=== PATIENT | female | born 1965 | race Caucasian/White ===

== ENCOUNTER → 2017-10-31 | Outpatient (CLI) | payer OTHER ==
[~2017-10-31] MED LIST: PROHANCE 279.3MG/ML 15ML VIAL (A9576) As Ordered ONE
--- NOTE | 2017-11-19 16:46 | REP ---
MRI pelvis without and with IV contrast: History: Right lower quadrant and right pelvic pain. The patient is status post vaginal hysterectomy. Status post urethral sling and colporrhaphy surgery February of 2017 complicated by multiloculated abscess. Left salpingo-oophorectomy. Multiloculated right adnexal cystic lesion. Comparison CT studies of the chest, abdomen and pelvis are from April and March of 2017, retrieved from an outside study. Most recent sonography October 09, 2017 also retrieved from an outside facility. Gadolinium enhancement dose: 12 mL of intravenous ProHance. MR technique: Sagittal, axial and coronal T1 and T2-weighted scans were obtained with and without fat saturation. MRI findings: Cortical and medullary bone signal intensity are normal in the proximal femurs and in the bony pelvic ring. Sacrum is intact. Presacral soft tissues are unremarkable. The patient is status post hysterectomy. No vaginal mass or abnormal fluid collection is seen. Vaginal townsend are unremarkable. Urinary bladder is largely empty at the time of scanning, but otherwise unremarkable. There is a complex cystic process enlarging the right ovary. The largest cystic components in this process are felt to contain proteinaceous material as there is a fluid-fluid level in one component and T1 hyperintense material is seen in this component. The other components have different signal intensity characteristics as well consistent with proteinaceous cyst fluid. Overall, the lesion corresponds well with the ultrasound findings. Overall dimensions are 3.6 cm medial to lateral by 3.1 cm anterior to posterior by 5.4 cm cranial to caudal. No left adnexal abnormality is observed. No free fluid is noted. There is no evidence of residual or recurrent abscess. Small and large bowel loops are unremarkable on today's MR study. Post gadolinium enhanced images show peripheral enhancement in the cystic process in the right adnexa and expected enhancement in the peroneal structures. No abdominal wall defect is seen. There are postsurgical changes in the subcutaneous fascial interface in the suprapubic region, status post Pfannenstiel type incision. No abdominal wall mass lesion is observed. Impression: Complex cystic enlargement right ovary, right adnexa as seen on recent ultrasound. Differential possibilities include endometrioma, hemorrhagic ovarian cystic lesion, and other neoplasm. Abscess is considered less likely given the appearance. Signed by Devonte Lenz MD 11/19/2017 04:54 P
--- NOTE | 2017-11-19 16:46 | REP ---
MRI abdomen without and with IV contrast: History: 52-year-old female with right lower quadrant and right pelvic pain. The patient status post surgical history including vaginal hysterectomy, anterior colporrhaphy, urethral sling, and left salpingo-oophorectomy, multiloculated abscess complications. Curvilinear calcification in the left abdomen on recent x-ray. Comparison radiographs are from April 22, 2017 and April 18, 2017. Comparison CT study April 25, 2017. Technique: Axial and coronal T1 and T2-weighted scans were obtained with and without fat saturation. The gadolinium enhancement dose is 12 mL of intravenous ProHance. MR abdomen findings: There is a tiny central right hepatic cyst, 6 mm in diameter. No other focal hepatic lesion is seen. No splenic lesion is observed. No adrenal masses seen on either side. No filling defect is noted in the gallbladder on T2-weighted scans. Pancreas is unremarkable on pre- and postcontrast imaging. The kidneys enhance symmetrically and are morphologically intact. No renal mass or cyst is observed. No retroperitoneal mass or adenopathy is seen. Normal caliber aorta. No abdominal wall defect is seen. Impression: Unremarkable upper abdominal MRI study pre and postcontrast imaging. Signed by Devonte Lenz MD 11/19/2017 04:54 P
== END ==
LOC: M RAD 10:21
PROVIDERS: ATTEND Family Medicine
DX: N83.291 Other ovarian cyst, right side (principal); K76.89 Other specified diseases of liver; Z90.710 Acquired absence of both cervix and uterus
CPT/HCPCS: 72197; 74183; A9576

== ENCOUNTER → 2018-01-15 | Outpatient (CLI) | payer OTHER | LOC: M PAIN 14:00 | DX: M79.1 Myalgia (principal); M43.07 Spondylolysis, lumbosacral region; Q67.5 Congenital deformity of spine; Z79.891 Long term (current) use of opiate analgesic; Z79.899 Other long term (current) drug therapy; Z88.0 Allergy status to penicillin; Z88.2 Allergy status to sulfonamides | CPT/HCPCS: G0463 ==

== ENCOUNTER 2018-01-21 10:55 | Day surgery (SDC) | payer OTHER ==
[~2018-01-21 10:55] MED LIST changes: +LIDOCAINE 2% INJ 100 MG/5 ML SDV (FOR ANES.) As Ordered; +MIDAZOLAM INJ 2 MG/2 ML VIAL (J2250) As Ordered; -PROHANCE 279.3MG/ML 15ML VIAL (A9576) As Ordered ONE; +PROPOFOL 200 MG/20 ML VIAL As Ordered; +ROCURONIUM BROMIDE 50 MG/5 ML VIAL As Ordered; +fentaNYL 100 MCG/2 ML INJECTION (J3010) As Ordered
[2018-01-21] MEDS ORDERED: ONDANSETRON 4MG/2ML VIAL (J2405) As Ordered (11:05)
[2018-01-21] MEDS ORDERED: LR 1,000 ML IV (11:15)
[2018-01-21] MEDS ORDERED: LIDOCAINE 1% SDV 5 ML VIAL SQ (11:15)
[2018-01-21] MEDS ORDERED: METOCLOPRAMIDE INJ 10MG/2ML VIAL (J2765) As Ordered (12:04)
[2018-01-21] MEDS ORDERED: SCOPOLAMINE 1MG TRANSDERMAL PATCH As Ordered (12:05)
[2018-01-21] MEDS ORDERED: dexameTHASONE 4 MG/ML 1ML VIAL (J1100) As Ordered (12:05)
[2018-01-21] MEDS ORDERED: SCOPOLAMINE 1MG TRANSDERMAL PATCH TOP (12:15)
[2018-01-21] MEDS ORDERED: KETAMINE HCL 200 MG/20 ML VIAL As Ordered (12:39)
[2018-01-21] MEDS ORDERED: PHENYLephrine HCL 500 MCG/5 ML (100MCG/ML) SYRINGE (J2370) As Ordered (12:50)
[2018-01-21] MEDS ORDERED: ePHEDrine INJ 50 MG/ML VIAL As Ordered (12:51)
[2018-01-21] MEDS: CLINDAMYCIN 600 MG/50 ML PREMIX BAG As Ordered (13:03)
[2018-01-21] MEDS: BUPIVACAINE HCL 0.5% 10 ML VIAL As Ordered (13:06)
== END 2018-01-21 15:33 | disposition home or self-care (01) ==
LOC: M SDC 10:55
DX: K59.00 Constipation, unspecified (principal); M12.9 Arthropathy, unspecified; M41.9 Scoliosis, unspecified; F41.9 Anxiety disorder, unspecified; J45.909 Unspecified asthma, uncomplicated; R32 Unspecified urinary incontinence; Z88.0 Allergy status to penicillin; Z88.2 Allergy status to sulfonamides; Z88.7 Allergy status to serum and vaccine; Z79.899 Other long term (current) drug therapy; Z90.710 Acquired absence of both cervix and uterus
CPT/HCPCS: 20240

== ENCOUNTER → 2018-02-26 | Outpatient (CLI) | payer OTHER | LOC: M PAIN 11:15 | DX: G89.29 Other chronic pain (principal); M79.1 Myalgia; M43.07 Spondylolysis, lumbosacral region; Q67.5 Congenital deformity of spine; Z88.0 Allergy status to penicillin; Z88.2 Allergy status to sulfonamides; Z79.899 Other long term (current) drug therapy | CPT/HCPCS: G0463 ==

== ENCOUNTER → 2018-04-24 | Outpatient (CLI) | payer OTHER | LOC: M PAIN 11:45 | DX: M79.1 Myalgia (principal); M43.07 Spondylolysis, lumbosacral region; G89.29 Other chronic pain; Q67.5 Congenital deformity of spine; Z79.899 Other long term (current) drug therapy; Z88.0 Allergy status to penicillin; Z88.2 Allergy status to sulfonamides; Z88.7 Allergy status to serum and vaccine | CPT/HCPCS: G0463 ==

== ENCOUNTER → 2018-04-29 | Outpatient (CLI) | payer OTHER ==
[~2018-04-29] MED LIST changes: +BUPIVACAINE HCL 0.25% 30 ML VIAL As Ordered; +ISOVUE-M 300 61% 15ML VIAL (Q9967) As Ordered; +LIDOCAINE 1% SDV INJ 30 ML VIAL As Ordered; -LIDOCAINE 2% INJ 100 MG/5 ML SDV (FOR ANES.) As Ordered; -MIDAZOLAM INJ 2 MG/2 ML VIAL (J2250) As Ordered; -PROPOFOL 200 MG/20 ML VIAL As Ordered; -ROCURONIUM BROMIDE 50 MG/5 ML VIAL As Ordered; +TRIAMCINOLONE ACETONIDE SUSP 40 MG/ML VIAL (J3301) As Ordered; +diazePAM 5 MG TAB As Ordered; -fentaNYL 100 MCG/2 ML INJECTION (J3010) As Ordered; +oxyCODONE 5MG TAB As Ordered
== END ==
LOC: M PAIN 13:45
DX: G89.29 Other chronic pain (principal); M47.816 Spondylosis without myelopathy or radiculopathy, lumbar region; Z79.899 Other long term (current) drug therapy; Z88.0 Allergy status to penicillin; Z88.2 Allergy status to sulfonamides; Z88.7 Allergy status to serum and vaccine
CPT/HCPCS: J3301

== ENCOUNTER → 2018-05-15 | Outpatient (CLI) | payer OTHER | LOC: M PAIN 11:45 | DX: M79.1 Myalgia (principal); M43.07 Spondylolysis, lumbosacral region; Q67.5 Congenital deformity of spine; Z79.899 Other long term (current) drug therapy; Z88.0 Allergy status to penicillin; Z88.5 Allergy status to narcotic agent; Z88.7 Allergy status to serum and vaccine | CPT/HCPCS: G0463 ==

== ENCOUNTER 2018-07-26 06:40 | Emergency (ER) | payer OTHER ==
[2018-07-26 07:17] LABS: BASO % 0.6 % (0.0-1.0); EOS # 0.1 10^3/uL (0.0-0.50); EOS % 2.5 % (0.0-3.0); HEMATOCRIT 38.6 % (36.0-47.0); HEMOGLOBIN 13.6 g/dl (12.0-15.5); IMMATURE GRANULOCYTE % 0.2 % (0-3.0); LYMPH # 1.6 10^3/uL (1.5-4.5); LYMPH % 30.4 % (24.0-44.0); MEAN CORPUSCULAR HEMOGLOBIN 31.1 pg (27.0-33.0); MEAN CORPUSCULAR HGB CONC 35.2 g/dl (32.0-36.5); MEAN CORPUSCULAR VOLUME 88.1 fl (80.0-96.0); MONO # 0.6 10^3/uL (0.0-0.8); MONO % 10.9 % (0.0-5.0); NEUTROPHILS # 2.9 10^3/uL (1.8-7.7); NEUTROPHILS % 55.4 % (36.0-66.0); PLATELET COUNT, AUTOMATED 199 10^3/uL (150-450); RED BLOOD COUNT 4.38 10^6/uL (4.00-5.40); RED CELL DISTRIBUTION WIDTH 11.7 % (11.5-14.5); WHITE BLOOD COUNT 5.2 10^3/uL (4.0-10.0)
[2018-07-26 07:40] LABS: ANION GAP 15 MEQ/L (8-16); BLOOD UREA NITROGEN 17 MG/DL (7-18); CARBON DIOXIDE LEVEL 21 MEQ/L (21-32); CHLORIDE LEVEL 105 MEQ/L (98-107); CK-MB VALUE MASS 2.5 NG/ML (<3.6); CPK CREATINE PHOSPHOKINASE 241 U/L (26-192); CREATININE FOR GFR 1.21 MG/DL (0.55-1.30); GLOMERULAR FILTRATION RATE 49.9 (>51); GLUCOSE, FASTING 154 MG/DL (70-100); MB/CK RELATIVE INDEX 1.03 (< OR =4); POTASSIUM SERUM 3.7 MEQ/L (3.5-5.1); SODIUM LEVEL 141 MEQ/L (136-145); TROPONIN I < 0.02 NG/ML (< 0.10)
[2018-07-26] MEDS: CLINDAMYCIN 600 MG in APPROPRIATE DILUENT 1 EA IV (09:02)
[2018-07-27 11:52] LABS: BEDSIDE GLUCOSE 106 MG/DL (70-105)
== END 2018-07-26 11:13 | disposition home or self-care (01) ==
LOC: M ED 06:40
DX: R55 Syncope and collapse (principal)
CPT/HCPCS: 93005

== ENCOUNTER → 2018-07-31 | Outpatient (CLI) | payer OTHER | LOC: M RAD 08:05 | DX: Z12.31 Encounter for screening mammogram for malignant neoplasm of breast (principal) | CPT/HCPCS: 77067 ==

== ENCOUNTER → 2018-08-27 | Outpatient (CLI) | payer OTHER ==
[~2018-08-27] MED LIST changes: +BUPIVACAINE HCL 0.25% 10 ML VIAL As Ordered; -ISOVUE-M 300 61% 15ML VIAL (Q9967) As Ordered; -LIDOCAINE 1% SDV INJ 30 ML VIAL As Ordered
== END ==
LOC: M PAIN 10:00
DX: M79.10 Myalgia, unspecified site (principal); Z79.899 Other long term (current) drug therapy; Z88.0 Allergy status to penicillin; Z88.2 Allergy status to sulfonamides; Z88.7 Allergy status to serum and vaccine
CPT/HCPCS: J3301

== ENCOUNTER → 2018-09-15 | Outpatient (CLI) | payer OTHER | LOC: M PAIN 10:30 | DX: M54.2 Cervicalgia (principal); M79.18 Myalgia, other site; Q67.5 Congenital deformity of spine; Z79.899 Other long term (current) drug therapy; Z88.0 Allergy status to penicillin; Z88.2 Allergy status to sulfonamides; Z88.7 Allergy status to serum and vaccine | CPT/HCPCS: G0463 ==

== ENCOUNTER 2018-10-27 09:45 | Day surgery (SDC) | payer OTHER ==
[~2018-10-27 09:45] MED LIST changes: -BUPIVACAINE HCL 0.25% 10 ML VIAL As Ordered; -BUPIVACAINE HCL 0.25% 30 ML VIAL As Ordered; +PROPOFOL 200 MG/20 ML VIAL As Ordered; -TRIAMCINOLONE ACETONIDE SUSP 40 MG/ML VIAL (J3301) As Ordered; -diazePAM 5 MG TAB As Ordered; -oxyCODONE 5MG TAB As Ordered
== END 2018-10-27 12:13 | disposition home or self-care (01) ==
LOC: M OPP 12:13
DX: Z12.11 Encounter for screening for malignant neoplasm of colon (principal); K63.89 Other specified diseases of intestine; M41.9 Scoliosis, unspecified; Z88.0 Allergy status to penicillin; Z88.2 Allergy status to sulfonamides; Z79.899 Other long term (current) drug therapy
CPT/HCPCS: 45378

== ENCOUNTER → 2018-11-09 | Outpatient (CLI) | payer OTHER ==
[~2018-11-09] MED LIST changes: +ACET1TAB55 PO; +ALEV220T26 PO; +BIOTPOW20 PO; +BUPIVACAINE HCL 0.25% 10 ML VIAL As Ordered ONE; +BUPIVACAINE HCL 0.25% 30 ML VIAL As Ordered ONE; +CLIN150C14 PO; +CYMB1CAP4 PO; +FISH100049 PO; +GLUC1CAP10 PO; +MULT1TAB42 PO; +PRENTAB55 PO; +PROBCAP4 PO; -PROPOFOL 200 MG/20 ML VIAL As Ordered; +TRAM50TA2 PO; +TRIAMCINOLONE ACETONIDE SUSP 40 MG/ML VIAL (J3301) As Ordered ONE; +VENTAER INH; +VITA-182 PO; +VITATAB11 PO; +ZYRT10CA5 PO; +diazePAM 5 MG TAB As Ordered ONE; +oxyCODONE 5MG TAB As Ordered ONE
--- NOTE | 2018-11-24 23:43 | ECWPNPC ---
PATIENT NAME: MIRZA CHIN : 1965 GENDER: FEMALE VISIT DATE: 11/09/2018 DISCHARGE DATE: 11/09/18 1326 VISIT LOCKED DATE TIME: PHYSICIAN: HILTON RIOS MD RESOURCE: HILTON RIOS MD HISTORY OF PRESENT ILLNESS DEPRESSION SCREENING: PHQ-2 IN LAST TWO WEEKS HAVE YOU BEEN BOTHERED BY LITTLE INTEREST OR PLEASURE IN DOING THINGSNO FEELING DOWN, DEPRESSED, OR HOPELESSNO HISTORY OF PRESENT ILLNESS: PAIN THE PATIENT DESCRIBES THE PAIN... FALL RISK SCREENING: SCREENING :NO FALLS IN THE PAST YEAR CURRENT MEDICATIONS TAKING 1 PLUS 1 - TABLET ORALLY , NOTES: 11/08/18699 TAKING GLUCOSAMINE CHOND MSM FORMULA - TABLET ORALLY , NOTES: 11/08/18699 TAKING CETIRIZINE HCL 10 MG TABLET 1 TABLET ORALLY DAILY PRN, NOTES: 11/08/18699 TAKING SUPER B COMPLEX - TABLET ORALLY , NOTES: 11/08/18699 TAKING VITAMIN D-3 1000 UNIT CAPSULE 1 CAPSULE ORALLY ONCE A DAY, NOTES: 11/08/18699 TAKING DICLOFENAC SODIUM 1 % GEL TRANSDERMAL , NOTES: 4 DAYS AGO TAKING VENTOLIN HFA 108 (90 BASE) MCG/ACT AEROSOL SOLUTION 1-2 PUFFS NEEDED INHALATION EVERY 6 HRS, NOTES: MONTH AGO TAKING ALEVE 220 MG TABLET 1 TABLET WITH FOOD OR MILK NEEDED ORALLY EVERY 12 HRS, NOTES: 3 DAYS AGO TAKING TYLENOL 325 MG TABLET 1 TABLET NEEDED ORALLY EVERY 4 HRS, NOTES: 3 DAYS AGO NOT-TAKING FISH OIL 1000 MG CAPSULE 1 CAPSULE ORALLY ONCE A DAY NOT-TAKING SENNA 8.6 MG TABLET 2 TABLETS AT BEDTIME NEEDED ORALLY ONCE A DAY NOT-TAKING TRAMADOL HCL 50 MG TABLET 1 TABLET NEEDED ORALLY EVERY 6 HRS PRN MDD4, NOTES: NONE LATELY NOT-TAKING SAME 400 MG TABLET ORALLY NOT-TAKING VITAMIN B 12 100 MCG LOZENGE ORALLY NOT-TAKING PROBIOTIC - CAPSULE ORALLY NOT-TAKING SOMA 350 MG TABLET 1 TABLET NEEDED ORALLY FOR SPASMS AND PAIN BEFORE BEDTIME MDD1 NOT-TAKING PREDNISONE 10 MG TABLET 3 TABLETS ORALLY ONCE A DAY, NOTES: MONTH AGO NOT-TAKING TESSALON PERLES 100 MG CAPSULE 1 CAPSULE NEEDED ORALLY THREE TIMES A DAY, NOTES: MONTH AGO MEDICATION LIST REVIEWED AND RECONCILED WITH THE PATIENT PAST MEDICAL HISTORY 02/2017 HYSTERECTOMY, PROLAPSE REPAIR, URETHRAL SLING 2007 CRUMP FRACTURE L FOOT ALLERGIES PENICILLIN (FOR ALLERGIES USE ONLY): HIVES: ALLERGY SULFA (FOR ALLERGY USE ONLY): HIVES: ALLERGY INFLUENZA VIRUS VACCINE SPLIT SURGICAL HISTORY BUNIONECTOMY LEFT FOOT 12/06 TONSILLECTOMY-ADNOIDS 2000 BUINIONECTOMY RIGHT FOOT 09/2011 HAMMERTOE SX RIGHT FOOT CORRECTION LEFT FOOT SURGERY 03/2013 FUSION LEFT FOOT 03/2015 HARDWARE REMOVAL 11/2016 HYSTER, PROLAPSE REPAIR, URETHRAL SLING 02/2017 EMERGENCY SURGERY FOR ABDOMINAL INFECTION - FROM HYSTERECTOMY 03/2017 BIOPSY LEFT UPPER LIP 04/24/18 FAMILY HISTORY FATHER: 64 YRS MOTHER: 83 YRS, DIAGNOSED WITH HYPERTENSION, HEART DISEASE 5 BROTHER(S) , 4 SISTER(S) . 2 SON(S) , 1 DAUGHTER(S) - HEALTHY. FATHER - OF LUNG DISEASEBROTHER - HEART ISSUES. SOCIAL HISTORY GENERAL: TOBACCO USE ARE YOU A:NONSMOKER ALCOHOL SCREENING DID YOU HAVE A DRINK CONTAINING ALCOHOL IN THE PAST YEAR?NO POINTS0 INTERPRETATIONNEGATIVE RECREATIONAL DRUG USE DRUG USE?NO CAFFEINE CAFFEINE USE?YES HOW OFTEN AND HOW MUCH? 1-3 CUPS PER DAY PENTECOSTAL [id number] CATHOLIC LANGUAGE LANGUAGES SPOKEN:CHINESE LEARNING BARRIERS / SPECIAL NEEDS BARRIERS TO LEARNING?NO HEARING IMPAIRED?NO VISION IMPAIRED?YES :CORRECTIVE LENSES COGNITIVELY IMPAIRED?NO READINESS TO LEARN?YES LEARNING PREFERENCES?NO LEARNING CAPABILITIES PRESENT?YES EMOTIONAL BARRIERS?NO SPECIAL DEVICES?NO ROLLER ENGRAVER NEEDED?NO NEW PATIENT PAIN DIARY PATIENT DESCRIBES PAIN :ACHING, HAVE IT ALL THE TIME, SHARP, STABBING, SORE, OTHER FROM 0-10, WHAT LEVEL IS YOUR PAIN TODAY?5 PRECIPITATING FACTORS PROLONGED STANDING OR SITTING, LIFTING, NO EXERCISE MAKE IT MUCH WORSE ALLEVIATING FACTORS SWIMMING IMPACT ON FUNCTION CAN'T STAY IN ONE PLACE FOR LONG PERIODS OF TIME NAME OF PERSON DRIVING YOU HOME SELF IS THERE A CHANCE YOU COULD BE ? NO HAVE YOU BEEN SICK IN THE LAST WEEK (COLD, COUGH, FEVER, FLU, ETC) NO DO YOU TAKE ANY BLOOD THINNERS? NO DO YOU HAVE ANY RASHES OR OPEN SORES? NO ANY CHANGE IN BOWEL OR BLADDER CONTROL? NO ARE YOU ALLERGIC TO SHELLFISH OR IV DYE? NO ARE YOU DIABETIC? NO DO YOU HAVE A PACEMAKER OR DEFIBRILLATOR? NO ANY NEW PROBLEMS WITH MEDICINES OR NEW ALLERGIES NO ANY NEW PATTERNS OF PAIN OR NUMBNESS? PAIN HAS INCREASED DUE TO INABILITY TO SWIM ANY CHANGE IN YOUR MEDICAL CONDITION? NO HAVE YOU FALLEN IN THE LAST 6 MONTHS? NO DO YOU USE ANY TYPE OF TOBACCO (SMOKE, SMOKELESS, CHEW, ETC.) NO ARE YOU ABUSED, NEGLECTED, OR IN AN UNSAFE ENVIRONMENT? NO DO YOU HAVE THOUGHTS OF HURTING YOURSELF OR SOMEONE ELSE? NO DO YOU NEED ANY PRESCRIPTIONS? NO DO YOU HAVE ANY OTHER QUESTIONS OR CONCERNS? NO, PT HAS BONE BIOPSY SCHEDULED FOR FOOT, TO MAKE SURE THERE ISN'T ANY INFECTION INTENSITY SCALE REVIEWED YES PAIN CLINIC PFS, CLERGY, PUBLIC HEALTH REFERRALS PUBLIC HEALTH REFERRAL NEEDED?NO WAS THE PROVIDER NOTIFIED OF ANY PERTINENT INFO?YES HAS THE PATIENT BEEN EDUCATED REGARDING HIS/HER PLAN OF CARE?YES HAS THE PATIENT BEEN EDUCATED REGARDING PAIN, THE RISK FOR PAIN, THE IMPORTANCE OF EFFECTIVE PAIN MANAGEMENT, AND THE PAIN ASSESSMENT PROCESS?YES ADVANCE DIRECTIVE ADVANCE DIRECTIVE DISCUSSED WITH PATIENT:YES OSVALDO CHIN- REVIEWED WITH PT 07/13/18 1341 LASREVIEWED WITH PT 08/27/18 1030 LASREVIEWED WITH PT 09/15/18 1037 BVREVIEWED WITH PATIENT 11/09/18 1140 JS. HOSPITALIZATION/MAJOR DIAGNOSTIC PROCEDURE ABDOMINAL INFECTION FROM HYSTERECTOMY SURGERY - 10 DAYS IN ICU 03/2017 REVIEW OF SYSTEMS REVIEWED BY: PROVIDER: . CONSTITUTIONAL: ANY CHANGE IN YOUR MEDICAL CONDITION? NO . CHILLS NO . FEVER NO . INFECTION: DO YOU HAVE NEW INFECTIONS? NO . DO YOU HAVE HISTORY OF MRSA? NO . MUSCULOSKELETAL: ANY NEW PATTERNS OF PAIN OR NUMBNESS? NO . GASTROENTEROLOGY: ANY NEW CHANGE IN BOWEL CONTROL? NO . GENITOURINARY: ANY NEW CHANGE IN BLADDER CONTROL? NO . IS THERE A CHANCE YOU COULD BE ? NO . HEMATOLOGY/LYMPH: DO YOU TAKE ANY BLOOD THINNERS? (FOR EXAMPLE- COUMADIN, PLAVIX, AGGRENOX, PLATEL, PRADAXA, OR XARELTO) NO . WHEN WAS YOUR LAST DOSE? DATE: TIME: . NEUROLOGY: HAVE YOU FALLEN IN THE PAST 6 MONTHS? NO . ANY NEW EXTREMITY NUMBNESS OR WEAKNESS? NO . CARDIOLOGY: DO YOU HAVE A PACEMAKER OR DEFIBRILLATOR? NO . RESPIRATORY: HAVE YOU BEEN SICK IN THE PAST WEEK? NO . FEVER NO . FLU LIKE SYMPTOMS? NO . COUGH NO . INTEGUMENTARY: DO YOU HAVE ANY RASHES OR OPEN SORES? NO . ALLERGIC/IMMUNO: ARE YOU ALLERGIC TO SHELLFISH OR IV DYE? NO . ANY NEW ALLERGIES? NO . PSYCHIATRIC: DO YOU HAVE THOUGHTS OF HURTING YOURSELF OR SOMEONE ELSE? NO . ARE YOU ABUSED, NEGLECTED, OR IN AN UNSAFE ENVIRONMENT? NO . ENDOCRINOLOGY: ARE YOU DIABETIC? NO . OTHER: DO YOU NEED ANY PRESCRIPTIONS? NO . IF YES, PLEASE LIST: ____ . ANY NEW PROBLEMS WITH YOUR MEDICATIONS? NO . WHEN DID YOU LAST EAT? ____11/08/18 2100 . WHEN DID YOU LAST DRINK? ____11/09/18 0830 . WHAT DID YOU LAST DRINK? ____WATER . NAME OF PERSON DRIVING YOU HOME? ____OSVALDO CHIN () . DO YOU HAVE ANY OTHER QUESTIONS OR CONCERNS NO . VITAL SIGNS WT 152.2 LBS, HT 62", BMI 27.83 INDEX, BP 104/63 MM HG, HR 59 /MIN, RR 16 /MIN, TEMP 96.7 F, OXYGEN SAT % 100%, SAFE IN ENV? (Y/N) YES, NA INITIALS AK 11:09, REVIEWED BY: JACQUELINE. ASSESSMENTS MYALGIA, OTHER SITE - M79.18 (PRIMARY) PROCEDURES PN TRIGGER POINT INJECTION WITH STEROIDS PRE PROCEDURE DIAGNOSIS 1. MYALGIA 2. PAIN AT RIGHT THORACIC AREA POST PROCEDURE DIAGNOSIS 1. MYALGIA 2. PAIN AT RIGHT THORACIC AREA PROCEDURE TRIGGER POINT INJECTION AT RIGHT THORACIC AREA SURGEON DR. HILTON RIOS SONOGRAPHY TECHNICIAN NONE ANESTHESIA LOCAL PRE PROCEDURE NOTE THE PATIENT HAS A HISTORY OF CHRONIC PAIN AT THE RIGHT THORACIC AREA. I EVALUATE THE PATIENT AND REVIEWED THE CHART. THERE IS EVIDENCE OF BANDS OF TISSUE WITH RESTRICTION OF MOVEMENT AND PRESENCE OF TRIGGER POINT AT THE AFFECTED AREA. I WENT OVER THE RISKS, ALTERNATIVES, AND BENEFITS ASSOCIATED WITH THIS PROCEDURE. THE PATIENT WOULD LIKE TO PROCEED AND GIVE CONSENT TO PERFORMED THE PROCEDURE. THE PATIENT DENIES UNEXPLAINABLE WEIGHT LOSS, FEVER, CHILLS, OR NEW CHANGES IN URINARY OR BOWEL CONTROL DESCRIPTION OF PROCEDURE THE PATIENT WAS BROUGHT TO THE PROCEDURE ROOM AND PLACED IN THE SITTING POSITION. THE AREA WAS CLEANED WITH ALCOHOL. THE PROCEDURE WAS DONE USING ASEPTIC STERILE TECHNIQUE. I CHECKED LATERALITY AND THE LEVEL WHERE THE PROCEDURE WAS GOING TO BE PERFORMED WITH THE PATIENT AND THE SUPPORTING STAFF AT THE MOMENT OF THE TIME OUT IN THE PROCEDURE ROOM. USING A 25-GAUGE NEEDLE, TRIGGER POINTS WERE INJECTED AT THE RIGHT THORACIC AREA WITH A TOTAL OF 40 ML OF BUPIVACAINE 0.25% AND KENALOG 40 MG. THERE WAS NO EVIDENCE OF BLOOD, PARESTHESIA OR CEREBROSPINAL FLUID DURING THE PROCEDURE. THE PATIENT WAS SENT TO THE RECOVERY ROOM. THE PATIENT WAS MOVING THE EXTREMITIES AND DOING WELL. THERE WAS NO COMPLICATION DURING THE PROCEDURE POST PROCEDURE NOTE THE PATIENT WILL BE SEEN IN A FOLLOW UP IN THE NEXT FEW WEEKS. INSTRUCTIONS WERE GIVEN, QUESTIONS WERE ANSWERED, AND THE PATIENT EXPRESSED UNDERSTANDING AND AGREES WITH THE PLAN. I, LAKSHMI SALEH, DOCUMENTED THE ABOVE INFORMATION ACTING A SCRIBE FOR DR. RIOS. I HAVE REVIEWED THE ABOVE DOCUMENT, WRITTEN BY LAKSHMI PUGAIBEris AND I VERIFY THAT IT IS ACCURATE. PROCEDURE CODES 67515 INJ TRIGGER POINT / MUSC DISPOSITION & COMMUNICATION FOLLOW UP 3 WEEKS ELECTRONICALLY SIGNED BY HILTON RIOS MD, MD ON 11/24/2018 AT 07:22 PM EST DISCLAIMER : THIS IS A VISIT SUMMARY EXTRACTED FROM THE [employer] CHART. IT IS NOT A COPY OF THE [employer] PROGRESS NOTE. MTDAnders
== END ==
LOC: M PAIN 11:15
PROVIDERS: ATTEND Anesthesiology
DX: M79.18 Myalgia, other site (principal); Z79.899 Other long term (current) drug therapy; Z90.710 Acquired absence of both cervix and uterus; Z88.0 Allergy status to penicillin; Z88.2 Allergy status to sulfonamides; Z88.7 Allergy status to serum and vaccine
CPT/HCPCS: 20552; J3301

== ENCOUNTER → 2018-12-22 | Outpatient (CLI) | payer OTHER ==
[~2018-12-22] MED LIST changes: -BUPIVACAINE HCL 0.25% 10 ML VIAL As Ordered ONE; -BUPIVACAINE HCL 0.25% 30 ML VIAL As Ordered ONE; -TRIAMCINOLONE ACETONIDE SUSP 40 MG/ML VIAL (J3301) As Ordered ONE; -diazePAM 5 MG TAB As Ordered ONE; -oxyCODONE 5MG TAB As Ordered ONE
--- NOTE | 2019-01-04 00:33 | ECWPNPC ---
PATIENT NAME: MIRZA CHIN : 1965 GENDER: FEMALE VISIT DATE: 12/22/2018 DISCHARGE DATE: 12/22/18 1156 VISIT LOCKED DATE TIME: PHYSICIAN: CRYSTAL TAY RESOURCE: CRYSTAL TAY REASON FOR APPOINTMENT 1. POST PROC HISTORY OF PRESENT ILLNESS HISTORY OF PRESENT ILLNESS: HERE FOR POST PROCEDURE F/U.HAD TPI RIGHT THORACIC AREA 11/09/18.REPORTING IMPROVEMENT IN PAIN THAT CONTINUES TODAY.CHIEF AREA OF PAIN IS RIGHT LOW BACK.RATING PAIN VAS 5/10. PAIN THE PATIENT DESCRIBES THE PAIN... FALL RISK SCREENING: SCREENING :NO FALLS IN THE PAST YEAR CURRENT MEDICATIONS TAKING 1 PLUS 1 - TABLET ORALLY TAKING CETIRIZINE HCL 10 MG TABLET 1 TABLET ORALLY DAILY PRN TAKING SUPER B COMPLEX - TABLET ORALLY TAKING VITAMIN D-3 1000 UNIT CAPSULE 1 CAPSULE ORALLY ONCE A DAY TAKING DICLOFENAC SODIUM 1 % GEL TRANSDERMAL TAKING TYLENOL 325 MG TABLET 1 TABLET NEEDED ORALLY EVERY 4 HRS TAKING CELEBREX 200 MG CAPSULE 1 CAPSULE WITH FOOD ORALLY ONCE A DAY NOT-TAKING FISH OIL 1000 MG CAPSULE 1 CAPSULE ORALLY ONCE A DAY NOT-TAKING SENNA 8.6 MG TABLET 2 TABLETS AT BEDTIME NEEDED ORALLY ONCE A DAY NOT-TAKING TRAMADOL HCL 50 MG TABLET 1 TABLET NEEDED ORALLY EVERY 6 HRS PRN MDD4, NOTES: NONE LATELY NOT-TAKING SAME 400 MG TABLET ORALLY NOT-TAKING VITAMIN B 12 100 MCG LOZENGE ORALLY NOT-TAKING PROBIOTIC - CAPSULE ORALLY NOT-TAKING SOMA 350 MG TABLET 1 TABLET NEEDED ORALLY FOR SPASMS AND PAIN BEFORE BEDTIME MDD1 NOT-TAKING PREDNISONE 10 MG TABLET 3 TABLETS ORALLY ONCE A DAY, NOTES: MONTH AGO NOT-TAKING TESSALON PERLES 100 MG CAPSULE 1 CAPSULE NEEDED ORALLY THREE TIMES A DAY, NOTES: MONTH AGO NOT-TAKING GLUCOSAMINE CHOND MSM FORMULA - TABLET ORALLY NOT-TAKING VENTOLIN HFA 108 (90 BASE) MCG/ACT AEROSOL SOLUTION 1-2 PUFFS NEEDED INHALATION EVERY 6 HRS NOT-TAKING ALEVE 220 MG TABLET 1 TABLET WITH FOOD OR MILK NEEDED ORALLY EVERY 12 HRS MEDICATION LIST REVIEWED AND RECONCILED WITH THE PATIENT PAST MEDICAL HISTORY 02/2017 HYSTERECTOMY, PROLAPSE REPAIR, URETHRAL SLING 2007 CRUMP FRACTURE L FOOT ALLERGIES PENICILLIN (FOR ALLERGIES USE ONLY): HIVES: ALLERGY SULFA (FOR ALLERGY USE ONLY): HIVES: ALLERGY INFLUENZA VIRUS VACCINE SPLIT SURGICAL HISTORY BUNIONECTOMY LEFT FOOT 12/06 TONSILLECTOMY-ADNOIDS 2000 BUINIONECTOMY RIGHT FOOT 09/2011 HAMMERTOE SX RIGHT FOOT CORRECTION LEFT FOOT SURGERY 03/2013 FUSION LEFT FOOT 03/2015 HARDWARE REMOVAL 11/2016 HYSTER, PROLAPSE REPAIR, URETHRAL SLING 02/2017 EMERGENCY SURGERY FOR ABDOMINAL INFECTION - FROM HYSTERECTOMY 03/2017 BIOPSY LEFT UPPER LIP 04/24/18 FAMILY HISTORY FATHER: 64 YRS MOTHER: 83 YRS, DIAGNOSED WITH HYPERTENSION, HEART DISEASE 5 BROTHER(S) , 4 SISTER(S) . 2 SON(S) , 1 DAUGHTER(S) - HEALTHY. FATHER - OF LUNG DISEASEBROTHER - HEART ISSUES. SOCIAL HISTORY GENERAL: TOBACCO USE ARE YOU A:NONSMOKER ALCOHOL SCREENING DID YOU HAVE A DRINK CONTAINING ALCOHOL IN THE PAST YEAR?NO POINTS0 INTERPRETATIONNEGATIVE RECREATIONAL DRUG USE DRUG USE?NO CAFFEINE CAFFEINE USE?YES HOW OFTEN AND HOW MUCH? 1-3 CUPS PER DAY [employer] [id number] LATTER DAY LANGUAGE LANGUAGES SPOKEN:[place]LANDER LEARNING BARRIERS / SPECIAL NEEDS BARRIERS TO LEARNING?NO HEARING IMPAIRED?NO VISION IMPAIRED?YES :CORRECTIVE LENSES COGNITIVELY IMPAIRED?NO READINESS TO LEARN?YES LEARNING PREFERENCES?NO LEARNING CAPABILITIES PRESENT?YES EMOTIONAL BARRIERS?NO SPECIAL DEVICES?NO TEACHER ASSISTANT NEEDED?NO NEW PATIENT PAIN DIARY PATIENT DESCRIBES PAIN :ACHING, HAVE IT ALL THE TIME, SHARP, STABBING, SORE, OTHER FROM 0-10, WHAT LEVEL IS YOUR PAIN TODAY?5 PRECIPITATING FACTORS PROLONGED STANDING OR SITTING, LIFTING, NO EXERCISE MAKE IT MUCH WORSE ALLEVIATING FACTORS SWIMMING IMPACT ON FUNCTION CAN'T STAY IN ONE PLACE FOR LONG PERIODS OF TIME NAME OF PERSON DRIVING YOU HOME SELF IS THERE A CHANCE YOU COULD BE ? NO HAVE YOU BEEN SICK IN THE LAST WEEK (COLD, COUGH, FEVER, FLU, ETC) NO DO YOU TAKE ANY BLOOD THINNERS? NO DO YOU HAVE ANY RASHES OR OPEN SORES? NO ANY CHANGE IN BOWEL OR BLADDER CONTROL? NO ARE YOU ALLERGIC TO SHELLFISH OR IV DYE? NO ARE YOU DIABETIC? NO DO YOU HAVE A PACEMAKER OR DEFIBRILLATOR? NO ANY NEW PROBLEMS WITH MEDICINES OR NEW ALLERGIES NO ANY NEW PATTERNS OF PAIN OR NUMBNESS? PAIN HAS INCREASED DUE TO INABILITY TO SWIM ANY CHANGE IN YOUR MEDICAL CONDITION? NO HAVE YOU FALLEN IN THE LAST 6 MONTHS? NO DO YOU USE ANY TYPE OF TOBACCO (SMOKE, SMOKELESS, CHEW, ETC.) NO ARE YOU ABUSED, NEGLECTED, OR IN AN UNSAFE ENVIRONMENT? NO DO YOU HAVE THOUGHTS OF HURTING YOURSELF OR SOMEONE ELSE? NO DO YOU NEED ANY PRESCRIPTIONS? NO DO YOU HAVE ANY OTHER QUESTIONS OR CONCERNS? NO, PT HAS BONE BIOPSY SCHEDULED FOR FOOT, TO MAKE SURE THERE ISN'T ANY INFECTION INTENSITY SCALE REVIEWED YES PAIN CLINIC PFS, CLERGY, PUBLIC HEALTH REFERRALS PUBLIC HEALTH REFERRAL NEEDED?NO WAS THE PROVIDER NOTIFIED OF ANY PERTINENT INFO?YES HAS THE PATIENT BEEN EDUCATED REGARDING HIS/HER PLAN OF CARE?YES HAS THE PATIENT BEEN EDUCATED REGARDING PAIN, THE RISK FOR PAIN, THE IMPORTANCE OF EFFECTIVE PAIN MANAGEMENT, AND THE PAIN ASSESSMENT PROCESS?YES ADVANCE DIRECTIVE ADVANCE DIRECTIVE DISCUSSED WITH PATIENT:YES OSVALDO CHIN- REVIEWED WITH PT 07/13/18 1341 LASREVIEWED WITH PT 08/27/18 1030 LASREVIEWED WITH PT 09/15/18 1037 BVREVIEWED WITH PATIENT 11/09/18 1140 JSREVIEWED WITH PATIENT 12/22/18 1121 JS. HOSPITALIZATION/MAJOR DIAGNOSTIC PROCEDURE ABDOMINAL INFECTION FROM HYSTERECTOMY SURGERY - 10 DAYS IN ICU 03/2017 REVIEW OF SYSTEMS REVIEWED BY: PROVIDER: CRYSTAL RIOS . CONSTITUTIONAL: ANY CHANGE IN YOUR MEDICAL CONDITION? NO . CHILLS NO . FEVER NO . INFECTION: DO YOU HAVE NEW INFECTIONS? NO . DO YOU HAVE HISTORY OF MRSA? NO . MUSCULOSKELETAL: ANY NEW PATTERNS OF PAIN OR NUMBNESS? NO . GASTROENTEROLOGY: ANY NEW CHANGE IN BOWEL CONTROL? NO . GENITOURINARY: ANY NEW CHANGE IN BLADDER CONTROL? NO . IS THERE A CHANCE YOU COULD BE ? NO . HEMATOLOGY/LYMPH: DO YOU TAKE ANY BLOOD THINNERS? (FOR EXAMPLE- COUMADIN, PLAVIX, AGGRENOX, PLATEL, PRADAXA, OR XARELTO) NO . WHEN WAS YOUR LAST DOSE? DATE: TIME: . NEUROLOGY: HAVE YOU FALLEN IN THE PAST 12 MONTHS? NO . ANY NEW EXTREMITY NUMBNESS OR WEAKNESS? YES, STATES NEW NUMBNESS TO BILATERAL HANDS, LEFT > RIGHT. ALSO STATES SEVERE CRAMPS IN LEFT LEG FROM LOWER LEG TO GROIN, AWAKENS PATIENT AT NIGHT . CARDIOLOGY: DO YOU HAVE A PACEMAKER OR DEFIBRILLATOR? NO . RESPIRATORY: HAVE YOU BEEN SICK IN THE PAST WEEK? NO . FEVER NO . FLU LIKE SYMPTOMS? NO . COUGH NO . INTEGUMENTARY: DO YOU HAVE ANY RASHES OR OPEN SORES? NO . ALLERGIC/IMMUNO: ARE YOU ALLERGIC TO IV DYE? NO . ANY NEW ALLERGIES? NO . PSYCHIATRIC: DO YOU HAVE THOUGHTS OF HURTING YOURSELF OR SOMEONE ELSE? NO . ARE YOU ABUSED, NEGLECTED, OR IN AN UNSAFE ENVIRONMENT? NO . ENDOCRINOLOGY: ARE YOU DIABETIC? NO . OTHER: DO YOU NEED ANY PRESCRIPTIONS? NO . IF YES, PLEASE LIST: ____ . ANY NEW PROBLEMS WITH YOUR MEDICATIONS? NO . WHEN DID YOU LAST EAT? ____ . WHEN DID YOU LAST DRINK? ____ . WHAT DID YOU LAST DRINK? ____ . NAME OF PERSON DRIVING YOU HOME? ____ . DO YOU HAVE ANY OTHER QUESTIONS OR CONCERNS NO . VITAL SIGNS WT 152.4 LBS, HT 62", BMI 27.87 INDEX, BP 107/55 MM HG, HR 69 /MIN, RR 16 /MIN, TEMP 97.7 F, OXYGEN SAT % 97%, SAFE IN ENV? (Y/N) YES, NA INITIALS IA 10:58, REVIEWED BY: JACQUELINE. EXAMINATION GENERAL EXAMINATION: GENERAL APPEARANCE:AWAKE,ALERT ,PLEAASANT . PSYCHAFFECT NORMAL . LUNGS:LUNG [place] ARE CLEAR TO AUSCULTATION BILATERALLY. GOOD MOVEMENT OF AIR . HEART:S1, S2 IN A REGULAR RATE AND RHYTHM. NO SIGNIFICANT MURMURS, RUBS OR GALLOPS NOTED . THORACIC SPINETRIGGER POINTS RIGHT THORACIC MID. ASSESSMENTS MYALGIA, OTHER SITE - M79.18 (PRIMARY) TREATMENT MYALGIA, OTHER SITE [facility] MRI SPINE, L.S. WITHOUT [id number],HEATHER L 01/01/2019 2:42:01 PM > RONALDO RILEY 12/29/2018 10:11:50 AM > APPROVED,OKAY TO BOOK MRI LUMBAR SPINE W/O CONTRAST ([id number]) AT [facility] 12/16/18-06/13/19 AUTH# [id number] NOTES: TPI RIGHT LOW BACK. PREVENTIVE MEDICINE PAIN CLINIC TEACHING: PROCEDURE TEACHING REVIEWED INFORMATION ON TRIGGER POINT INJECTION PROCEDURE WITH PATIENT. ALSO REVIEWED PRE-PROCEDURE INSTRUCTIONS. PATIENT VERBALIZED AN UNDERSTANDING. MIRZA BORDEN 12/22/2018 11:55:04 AM > . PROCEDURE CODES FA211 ESTABILISHED PATIENT [facility] FACILITY CHARGE DISPOSITION & COMMUNICATION FOLLOW UP POST (REASON: TPI RIGHT LOW BACK) ELECTRONICALLY SIGNED BY BLANCA LEE ON 01/03/2019 AT 02:56 PM EST DISCLAIMER : THIS IS A VISIT SUMMARY EXTRACTED FROM THE [employer] CHART. IT IS NOT A COPY OF THE [employer] PROGRESS NOTE. BELINDA
== END ==
LOC: M PAIN 11:00
PROVIDERS: ATTEND Nurse Practitioner Family
DX: M79.18 Myalgia, other site (principal); Z79.899 Other long term (current) drug therapy; Z88.0 Allergy status to penicillin; Z88.2 Allergy status to sulfonamides; Z88.7 Allergy status to serum and vaccine

== ENCOUNTER → 2019-01-03 | Outpatient (REF) | payer OTHER | LOC: M SFHCLERA 10:27 | PROVIDERS: ATTEND Physician Assistant | DX: J02.9 Acute pharyngitis, unspecified (principal) ==

== ENCOUNTER → 2019-01-14 | Outpatient (CLI) | payer OTHER ==
--- NOTE | 2019-01-14 16:36 | REP ---
MR LUMBAR SPINE WITHOUT CONTRAST: HISTORY: Back pain. Decreased signal intensity on T2-weighted images is present in the L2-3 through L5-S1 intervertebral discs. The L3-4 and L4-5 intervertebral discs are decreased in height. These findings are consistent with disc degeneration. There is no disc bulge or herniation at the L1-2 and L2-3 levels. The nerves exit the neural foramina without compression. A diffuse disc bulge is present at the L3-4 level. There is minimal compression of the thecal sac. There is hypertrophy of the ligamenta flava and posterior articulating facets. The L3 nerves exit the neural foramina without compression. A diffuse disc bulge is present at the L4-5 level. There is minimal compression of the thecal sac. The L4 nerves exit the neural foramina without compression. A diffuse disc bulge and small left paracentral and intraforaminal disc protrusion are present at the L5-S1 level. There is minimal compression of the thecal sac and left S1 nerve as it exits the thecal sac. There is compression of the left L5 nerve in the neural foramen. The right L5 nerve exits the neural foramen without compression. The conus medullaris is normal in appearance terminating at the level of the T12-L1 intervertebral disc. Normal signal intensity is present in the lumbar vertebral bodies. IMPRESSION: 1. Diffuse disc bulges at the L3-4 and L4-5 levels with minimal thecal sac compression. 2. Diffuse disc bulge and small left paracentral and intraforaminal disc protrusion at the L5-S1 level with minimal compression of the thecal sac and left S1 nerve as it exits the thecal sac. There is compression of the left L5 nerve in the neural foramen. Electronically Signed by Yohan So MD 01/14/2019 04:38 P
== END ==
LOC: M RAD 14:44
PROVIDERS: ATTEND Nurse Practitioner Family
DX: M79.18 Myalgia, other site (principal)

== ENCOUNTER → 2019-01-28 | Outpatient (CLI) | payer OTHER ==
[~2019-01-28] MED LIST changes: +BUPIVACAINE HCL 0.25% 10 ML VIAL As Ordered ONE; +BUPIVACAINE HCL 0.25% 30 ML VIAL As Ordered ONE; +TRIAMCINOLONE ACETONIDE SUSP 40 MG/ML VIAL (J3301) As Ordered ONE; +diazePAM 5 MG TAB As Ordered ONE; +oxyCODONE 5MG TAB As Ordered ONE
--- NOTE | 2019-02-14 23:44 | ECWPNPC ---
PATIENT NAME: MIRZA CHIN : 1965 GENDER: FEMALE VISIT DATE: 01/28/2019 DISCHARGE DATE: 01/28/19 1014 VISIT LOCKED DATE TIME: PHYSICIAN: HILTON RIOS MD RESOURCE: HILTON RIOS MD REASON FOR APPOINTMENT 1. TPI RIGHT LOW BACK HISTORY OF PRESENT ILLNESS HISTORY OF PRESENT ILLNESS: PAIN THE PATIENT DESCRIBES THE PAIN... FALL RISK SCREENING: SCREENING : NO FALLS IN THE PAST YEAR. CURRENT MEDICATIONS TAKING BENZONATATE 200 MG CAPSULE 1 CAPSULE ORALLY THREE TIMES A DAY NEEDED FOR COUGH, NOTES: 2 WEEKS AGO TAKING MOXIFLOXACIN HCL 0.5 % SOLUTION 1 GTT OU OPHTHALMIC THREE TIMES A DAY, NOTES: 3 WEEKS AGO TAKING DOXYCYCLINE HYCLATE 100 MG CAPSULE 1 CAPSULE ORALLY EVERY 12 HRS, NOTES: 01/25/19 TAKING NETI POT SINUS WASH 2300-700 MG KIT DIRECTED NASALLY BID, NOTES: NOT USED TAKING FLONASE 50 MCG/ACT SUSPENSION 1 SPRAY IN EACH NOSTRIL NASALLY TWICE A DAY, NOTES: 01/25/19 TAKING MUCINEX DM 30-600 MG TABLET EXTENDED RELEASE 12 HOUR 1 TABLET NEEDED ORALLY EVERY 12 HRS TAKING SUDAFED 12 HOUR 120 MG TABLET EXTENDED RELEASE 12 HOUR 1 TABLET NEEDED ORALLY EVERY 12 HRS TAKING MAY USE TAKING CELEBREX 200 MG CAPSULE 1 CAPSULE WITH FOOD ORALLY ONCE A DAY, NOTES: 01/27/19@0700 TAKING VITAMINS - (DIS) TABLET ORALLY , NOTES: 01/27/19@0700 TAKING CETIRIZINE HCL 10 MG TABLET 1 TABLET ORALLY ONCE A DAY, NOTES: 01/27/19@1100 TAKING SUPER B COMPLEX , NOTES: 01/27/19@1130 TAKING VITAMIN D (ERGOCALCIFEROL) 2000 UNIT CAPSULE ORALLY , NOTES: 01/27/19@1130 TAKING TYLENOL 1 TAB ORALLY 2-3X/WEEK X 4 WEEKS TAKING DICLO GEL 1 % KIT TRANSDERMAL BID DISCONTINUED VITAMIN D-3 1000 UNIT CAPSULE 1 CAPSULE ORALLY ONCE A DAY MEDICATION LIST REVIEWED AND RECONCILED WITH THE PATIENT PAST MEDICAL HISTORY 02/2017 HYSTERECTOMY, PROLAPSE REPAIR, URETHRAL SLING 2007 CRUMP FRACTURE L FOOT ALLERGIES PENICILLIN (FOR ALLERGIES USE ONLY): HIVES - ALLERGY SULFA (FOR ALLERGY USE ONLY): HIVES - ALLERGY INFLUENZA VIRUS VACCINE SPLIT SURGICAL HISTORY BUNIONECTOMY LEFT FOOT 12/06 TONSILLECTOMY-ADNOIDS 2001 BUINIONECTOMY RIGHT FOOT 09/2011 HAMMERTOE SX RIGHT FOOT CORRECTION LEFT FOOT SURGERY 03/2013 FUSION LEFT FOOT 03/2015 HARDWARE REMOVAL 11/2016 HYSTER, PROLAPSE REPAIR, URETHRAL SLING 02/2017 EMERGENCY SURGERY FOR ABDOMINAL INFECTION - FROM HYSTERECTOMY 03/2017 BIOPSY LEFT UPPER LIP 04/24/18 FAMILY HISTORY FATHER: 64 YRS MOTHER: 83 YRS, DIAGNOSED WITH HYPERTENSION, HEART DISEASE 5 BROTHER(S) , 4 SISTER(S) . 2 SON(S) , 1 DAUGHTER(S) - HEALTHY. FATHER - OF LUNG DISEASEBROTHER - HEART ISSUESBROTHER HAD PROSTATE CANCER. SOCIAL HISTORY GENERAL: TOBACCO USE ARE YOU A:NONSMOKER ALCOHOL SCREENING DID YOU HAVE A DRINK CONTAINING ALCOHOL IN THE PAST YEAR?NO POINTS0 INTERPRETATIONNEGATIVE RECREATIONAL DRUG USE DRUG USE?NO CAFFEINE CAFFEINE USE?YES HOW OFTEN AND HOW MUCH? 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 EXERCISE: NO REGULAR EXERCISE. MARITAL STATUS: . OTHERS AT HOME: SPOUSE. IMMUNIZATION PROGRAM SPOUSE. NEW PATIENT PAIN DIARY PATIENT DESCRIBES PAIN :ACHING, HAVE IT ALL THE TIME, SHARP, STABBING, SORE, OTHER FROM 0-10, WHAT LEVEL IS YOUR PAIN TODAY?5 PRECIPITATING FACTORS PROLONGED STANDING OR SITTING, LIFTING, NO EXERCISE MAKE IT MUCH WORSE ALLEVIATING FACTORS SWIMMING IMPACT ON FUNCTION CAN'T STAY IN ONE PLACE FOR LONG PERIODS OF TIME NAME OF PERSON DRIVING YOU HOME SELF IS THERE A CHANCE YOU COULD BE ? NO HAVE YOU BEEN SICK IN THE LAST WEEK (COLD, COUGH, FEVER, FLU, ETC) NO DO YOU TAKE ANY BLOOD THINNERS? NO DO YOU HAVE ANY RASHES OR OPEN SORES? NO ANY CHANGE IN BOWEL OR BLADDER CONTROL? NO ARE YOU ALLERGIC TO SHELLFISH OR IV DYE? NO ARE YOU DIABETIC? NO DO YOU HAVE A PACEMAKER OR DEFIBRILLATOR? NO ANY NEW PROBLEMS WITH MEDICINES OR NEW ALLERGIES NO ANY NEW PATTERNS OF PAIN OR NUMBNESS? PAIN HAS INCREASED DUE TO INABILITY TO SWIM ANY CHANGE IN YOUR MEDICAL CONDITION? NO HAVE YOU FALLEN IN THE LAST 6 MONTHS? NO DO YOU USE ANY TYPE OF TOBACCO (SMOKE, SMOKELESS, CHEW, ETC.) NO ARE YOU ABUSED, NEGLECTED, OR IN AN UNSAFE ENVIRONMENT? NO DO YOU HAVE THOUGHTS OF HURTING YOURSELF OR SOMEONE ELSE? NO DO YOU NEED ANY PRESCRIPTIONS? NO DO YOU HAVE ANY OTHER QUESTIONS OR CONCERNS? NO, PT HAS BONE BIOPSY SCHEDULED FOR FOOT, TO MAKE SURE THERE ISN'T ANY INFECTION INTENSITY SCALE REVIEWED YES PAIN CLINIC PFS, CLERGY, PUBLIC HEALTH REFERRALS PUBLIC HEALTH REFERRAL NEEDED?NO WAS THE PROVIDER NOTIFIED OF ANY PERTINENT INFO?YES HAS THE PATIENT BEEN EDUCATED REGARDING HIS/HER PLAN OF CARE?YES HAS THE PATIENT BEEN EDUCATED REGARDING PAIN, THE RISK FOR PAIN, THE IMPORTANCE OF EFFECTIVE PAIN MANAGEMENT, AND THE PAIN ASSESSMENT PROCESS?YES HOUSING: RENTS APARTMENT. ADVANCE DIRECTIVE ADVANCE DIRECTIVE DISCUSSED WITH PATIENT:YES OSVALDO CHIN- REVIEWED WITH PT 07/13/18 1341 LASREVIEWED WITH PT 08/27/18 1030 LASREVIEWED WITH PT 09/15/18 1037 BVREVIEWED WITH PATIENT 11/09/18 1140 JSREVIEWED WITH PATIENT 12/22/18 1121 JS. HOSPITALIZATION/MAJOR DIAGNOSTIC PROCEDURE ABDOMINAL INFECTION FROM HYSTERECTOMY SURGERY - 10 DAYS IN ICU 03/2017 REVIEW OF SYSTEMS REVIEWED BY: PROVIDER: . CONSTITUTIONAL: ANY CHANGE IN YOUR MEDICAL CONDITION? NO . CHILLS NO . FEVER NO . INFECTION: DO YOU HAVE NEW INFECTIONS? HAD SINUS INFECTION BUT FINISHED ANTIBIOTIC ON 01/25/19 . DO YOU HAVE HISTORY OF MRSA? NO . MUSCULOSKELETAL: ANY NEW PATTERNS OF PAIN OR NUMBNESS? YES . GASTROENTEROLOGY: ANY NEW CHANGE IN BOWEL CONTROL? NO . GENITOURINARY: ANY NEW CHANGE IN BLADDER CONTROL? NO . IS THERE A CHANCE YOU COULD BE ? NO . HEMATOLOGY/LYMPH: DO YOU TAKE ANY BLOOD THINNERS? (FOR EXAMPLE- COUMADIN, PLAVIX, AGGRENOX, PLATEL, PRADAXA, OR XARELTO) NO . WHEN WAS YOUR LAST DOSE? DATE: TIME: . NEUROLOGY: HAVE YOU FALLEN IN THE PAST 12 MONTHS? NO . ANY NEW EXTREMITY NUMBNESS OR WEAKNESS? YES . CARDIOLOGY: DO YOU HAVE A PACEMAKER OR DEFIBRILLATOR? NO . RESPIRATORY: HAVE YOU BEEN SICK IN THE PAST WEEK? NO . FEVER NO . FLU LIKE SYMPTOMS? NO . COUGH NO . INTEGUMENTARY: DO YOU HAVE ANY RASHES OR OPEN SORES? NO . ALLERGIC/IMMUNO: ARE YOU ALLERGIC TO IV DYE? NO . ANY NEW ALLERGIES? NO . PSYCHIATRIC: DO YOU HAVE THOUGHTS OF HURTING YOURSELF OR SOMEONE ELSE? NO . ARE YOU ABUSED, NEGLECTED, OR IN AN UNSAFE ENVIRONMENT? NO . ENDOCRINOLOGY: ARE YOU DIABETIC? NO . OTHER: DO YOU NEED ANY PRESCRIPTIONS? NO . IF YES, PLEASE LIST: ____ . ANY NEW PROBLEMS WITH YOUR MEDICATIONS? NO . WHEN DID YOU LAST EAT? ____01/27/19 . WHEN DID YOU LAST DRINK? ____0230 . WHAT DID YOU LAST DRINK? ____WATER . NAME OF PERSON DRIVING YOU HOME? ____BENJAMIN CRUZ . DO YOU HAVE ANY OTHER QUESTIONS OR CONCERNS HAS THE DOCTOR SEEN MY MRI RESULTS . VITAL SIGNS WT 151.8 LBS, HT 62", BMI 27.76 INDEX, BP 109/64 MM HG, HR 60 /MIN, RR 18 /MIN, TEMP 97.6 F, OXYGEN SAT % 95%, SAFE IN ENV? (Y/N) Y, NA INITIALS CO 08:50, REVIEWED BY: MEJIA. ASSESSMENTS MYALGIA, OTHER SITE - M79.18 (PRIMARY) PROCEDURES PN TRIGGER POINT INJECTION WITH STEROIDS PRE PROCEDURE DIAGNOSIS 1. MYALGIA 2. PAIN AT RIGHT LOW BACK AREA POST PROCEDURE DIAGNOSIS 1. MYALGIA 2. PAIN AT RIGHT LOW BACK AREA PROCEDURE TRIGGER POINT INJECTION AT RIGHT LOW BACK AREA SURGEON DR. HILTON RIOS HAND TAPPER NONE ANESTHESIA LOCAL PRE PROCEDURE NOTE THE PATIENT HAS A HISTORY OF CHRONIC PAIN AT THE RIGHT LOW BACK AREA. I EVALUATE THE PATIENT AND REVIEWED THE CHART. THERE IS EVIDENCE OF BANDS OF TISSUE WITH RESTRICTION OF MOVEMENT AND PRESENCE OF TRIGGER POINT AT THE AFFECTED AREA. I WENT OVER THE RISKS, ALTERNATIVES, AND BENEFITS ASSOCIATED WITH THIS PROCEDURE. THE PATIENT WOULD LIKE TO PROCEED AND GIVE CONSENT TO PERFORMED THE PROCEDURE. THE PATIENT DENIES UNEXPLAINABLE WEIGHT LOSS, FEVER, CHILLS, OR NEW CHANGES IN URINARY OR BOWEL CONTROL DESCRIPTION OF PROCEDURE THE PATIENT WAS BROUGHT TO THE PROCEDURE ROOM AND PLACED IN THE SITTING POSITION. THE AREA WAS CLEANED WITH ALCOHOL. THE PROCEDURE WAS DONE USING ASEPTIC STERILE TECHNIQUE. I CHECKED LATERALITY AND THE LEVEL WHERE THE PROCEDURE WAS GOING TO BE PERFORMED WITH THE PATIENT AND THE SUPPORTING STAFF AT THE MOMENT OF THE TIME OUT IN THE PROCEDURE ROOM. USING A 25-GAUGE NEEDLE, TRIGGER POINTS WERE INJECTED AT THE RIGHT LOW BACK AREA WITH A TOTAL OF 40 ML OF BUPIVACAINE 0.25% AND KENALOG 40 MG. THERE WAS NO EVIDENCE OF BLOOD, PARESTHESIA OR CEREBROSPINAL FLUID DURING THE PROCEDURE. THE PATIENT WAS SENT TO THE RECOVERY ROOM. THE PATIENT WAS MOVING THE EXTREMITIES AND DOING WELL. THERE WAS NO COMPLICATION DURING THE PROCEDURE POST PROCEDURE NOTE THE PATIENT WILL BE SEEN IN A FOLLOW UP IN THE NEXT FEW WEEKS. INSTRUCTIONS WERE GIVEN, QUESTIONS WERE ANSWERED, AND THE PATIENT EXPRESSED UNDERSTANDING AND AGREES WITH THE PLAN. I, LAKSHMI SALEH, DOCUMENTED THE ABOVE INFORMATION ACTING A SCRIBE FOR DR. RIOS. I HAVE REVIEWED THE ABOVE DOCUMENT, WRITTEN BY LAKSHMI WYNN AND I VERIFY THAT IT IS ACCURATE. PROCEDURE CODES 44359 INJ TRIGGER POINT / MUSCL DISPOSITION & COMMUNICATION FOLLOW UP 3 WEEKS ELECTRONICALLY SIGNED BY HILTON RIOS MD, MD ON 02/14/2019 AT 07:33 PM EDT DISCLAIMER : THIS IS A VISIT SUMMARY EXTRACTED FROM THE [employer] CHART. IT IS NOT A COPY OF THE [employer] PROGRESS NOTE. BELINDA
== END ==
LOC: M PAIN 08:30
PROVIDERS: ATTEND Anesthesiology
DX: M79.18 Myalgia, other site (principal); M54.5 Low back pain; Z79.899 Other long term (current) drug therapy; Z88.0 Allergy status to penicillin; Z88.2 Allergy status to sulfonamides; Z88.7 Allergy status to serum and vaccine
CPT/HCPCS: 20552; J3301

== ENCOUNTER → 2019-02-15 | Outpatient (CLI) | payer OTHER ==
[~2019-02-15] MED LIST changes: -BUPIVACAINE HCL 0.25% 10 ML VIAL As Ordered ONE; -BUPIVACAINE HCL 0.25% 30 ML VIAL As Ordered ONE; -TRIAMCINOLONE ACETONIDE SUSP 40 MG/ML VIAL (J3301) As Ordered ONE; -diazePAM 5 MG TAB As Ordered ONE; -oxyCODONE 5MG TAB As Ordered ONE
--- NOTE | 2019-02-28 23:34 | ECWPNPC ---
PATIENT NAME: MIRZA CHIN : 1965 GENDER: FEMALE VISIT DATE: 02/15/2019 DISCHARGE DATE: 02/15/19 1011 VISIT LOCKED DATE TIME: PHYSICIAN: HILTON RIOS MD RESOURCE: HILTON RIOS MD REASON FOR APPOINTMENT 1. POST TPI PER DR Landrum HISTORY OF PRESENT ILLNESS HISTORY OF PRESENT ILLNESS: PAIN THE PATIENT DESCRIBES THE PAIN... 53 YEAR OLD FEMALE PATIENT WITH A HISTORY OF CHRONIC LOW BACK PAIN. THE PATIENT DESCRIBES THE PAIN ACHING, SORE, SHARP, STABBING, SHOOTING, AND CONTINUOUS WITH A PAIN SCORE OF 1-7/10 DEPENDING ON PHYSICAL ACTIVITY. THE PATIENT WAS HERE FOR A TRIGGER POINT INJECTION ON 01/28/2019 AND REPORTS HAVING A WEEK OF PAIN RELIEF, BUT THEN THE PAIN RETURNED. PATIENT DENIES UNEXPLAINABLE WEIGHT LOSS, FEVER, CHILLS, NEW CHANGES ON HER URINARY OR BOWEL CONTROL. FALL RISK SCREENING: SCREENING : NO FALLS IN THE PAST YEAR. CURRENT MEDICATIONS TAKING MAY USE TAKING CELEBREX 200 MG CAPSULE 1 CAPSULE WITH FOOD ORALLY ONCE A DAY TAKING VITAMINS - (DIS) TABLET ORALLY TAKING CETIRIZINE HCL 10 MG TABLET 1 TABLET ORALLY ONCE A DAY TAKING VITAMIN D (ERGOCALCIFEROL) 2000 UNIT CAPSULE ORALLY TAKING TYLENOL 1 TAB ORALLY 2-3X/WEEK X 4 WEEKS TAKING DICLO GEL 1 % KIT TRANSDERMAL BID TAKING VITAMIN C 1000 MG TABLET 1 TABLET ORALLY ONCE A DAY NOT-TAKING BENZONATATE 200 MG CAPSULE 1 CAPSULE ORALLY THREE TIMES A DAY NEEDED FOR COUGH NOT-TAKING MOXIFLOXACIN HCL 0.5 % SOLUTION 1 GTT OU OPHTHALMIC THREE TIMES A DAY NOT-TAKING DOXYCYCLINE HYCLATE 100 MG CAPSULE 1 CAPSULE ORALLY EVERY 12 HRS NOT-TAKING NETI POT SINUS WASH 2300-700 MG KIT DIRECTED NASALLY BID NOT-TAKING FLONASE 50 MCG/ACT SUSPENSION 1 SPRAY IN EACH NOSTRIL NASALLY TWICE A DAY NOT-TAKING MUCINEX DM 30-600 MG TABLET EXTENDED RELEASE 12 HOUR 1 TABLET NEEDED ORALLY EVERY 12 HRS NOT-TAKING SUDAFED 12 HOUR 120 MG TABLET EXTENDED RELEASE 12 HOUR 1 TABLET NEEDED ORALLY EVERY 12 HRS NOT-TAKING SUPER B COMPLEX MEDICATION LIST REVIEWED AND RECONCILED WITH THE PATIENT PAST MEDICAL HISTORY 02/2017 HYSTERECTOMY, PROLAPSE REPAIR, URETHRAL SLING 2007 CRUMP FRACTURE L FOOT ALLERGIES PENICILLIN (FOR ALLERGIES USE ONLY): HIVES - ALLERGY SULFA (FOR ALLERGY USE ONLY): HIVES - ALLERGY INFLUENZA VIRUS VACCINE SPLIT SURGICAL HISTORY BUNIONECTOMY LEFT FOOT 12/06 TONSILLECTOMY-ADNOIDS 2000 BUINIONECTOMY RIGHT FOOT 09/2011 HAMMERTOE SX RIGHT FOOT CORRECTION LEFT FOOT SURGERY 03/2013 FUSION LEFT FOOT 03/2015 HARDWARE REMOVAL 11/2016 HYSTER, PROLAPSE REPAIR, URETHRAL SLING 02/2017 EMERGENCY SURGERY FOR ABDOMINAL INFECTION - FROM HYSTERECTOMY 03/2017 BIOPSY LEFT UPPER LIP 04/24/18 FAMILY HISTORY FATHER: 64 YRS MOTHER: 83 YRS, DIAGNOSED WITH HYPERTENSION, HEART DISEASE 5 BROTHER(S) , 4 SISTER(S) . 2 SON(S) , 1 DAUGHTER(S) - HEALTHY. FATHER - OF LUNG DISEASE\\NBROTHER - HEART ISSUES\\NBROTHER HAD PROSTATE CANCER\\N. SOCIAL HISTORY GENERAL: TOBACCO USE ARE YOU A:NONSMOKER ALCOHOL SCREENING DID YOU HAVE A DRINK CONTAINING ALCOHOL IN THE PAST YEAR?NO POINTS0 INTERPRETATIONNEGATIVE RECREATIONAL DRUG USE DRUG USE?NO CAFFEINE CAFFEINE USE?YES HOW OFTEN AND HOW MUCH? 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 EXERCISE: NO REGULAR EXERCISE. MARITAL STATUS: . OTHERS AT HOME: SPOUSE. IMMUNIZATION PROGRAM SPOUSE. NEW PATIENT PAIN DIARY PATIENT DESCRIBES PAIN :ACHING, HAVE IT ALL THE TIME, SHARP, STABBING, SORE, OTHER FROM 0-10, WHAT LEVEL IS YOUR PAIN TODAY?5 PRECIPITATING FACTORS PROLONGED STANDING OR SITTING, LIFTING, NO EXERCISE MAKE IT MUCH WORSE ALLEVIATING FACTORS SWIMMING IMPACT ON FUNCTION CAN'T STAY IN ONE PLACE FOR LONG PERIODS OF TIME NAME OF PERSON DRIVING YOU HOME SELF IS THERE A CHANCE YOU COULD BE ? NO HAVE YOU BEEN SICK IN THE LAST WEEK (COLD, COUGH, FEVER, FLU, ETC) NO DO YOU TAKE ANY BLOOD THINNERS? NO DO YOU HAVE ANY RASHES OR OPEN SORES? NO ANY CHANGE IN BOWEL OR BLADDER CONTROL? NO ARE YOU ALLERGIC TO SHELLFISH OR IV DYE? NO ARE YOU DIABETIC? NO DO YOU HAVE A PACEMAKER OR DEFIBRILLATOR? NO ANY NEW PROBLEMS WITH MEDICINES OR NEW ALLERGIES NO ANY NEW PATTERNS OF PAIN OR NUMBNESS? PAIN HAS INCREASED DUE TO INABILITY TO SWIM ANY CHANGE IN YOUR MEDICAL CONDITION? NO HAVE YOU FALLEN IN THE LAST 6 MONTHS? NO DO YOU USE ANY TYPE OF TOBACCO (SMOKE, SMOKELESS, CHEW, ETC.) NO ARE YOU ABUSED, NEGLECTED, OR IN AN UNSAFE ENVIRONMENT? NO DO YOU HAVE THOUGHTS OF HURTING YOURSELF OR SOMEONE ELSE? NO DO YOU NEED ANY PRESCRIPTIONS? NO DO YOU HAVE ANY OTHER QUESTIONS OR CONCERNS? NO, PT HAS BONE BIOPSY SCHEDULED FOR FOOT, TO MAKE SURE THERE ISN'T ANY INFECTION INTENSITY SCALE REVIEWED YES PAIN CLINIC PFS, CLERGY, PUBLIC HEALTH REFERRALS PUBLIC HEALTH REFERRAL NEEDED?NO WAS THE PROVIDER NOTIFIED OF ANY PERTINENT INFO?YES HAS THE PATIENT BEEN EDUCATED REGARDING HIS/HER PLAN OF CARE?YES HAS THE PATIENT BEEN EDUCATED REGARDING PAIN, THE RISK FOR PAIN, THE IMPORTANCE OF EFFECTIVE PAIN MANAGEMENT, AND THE PAIN ASSESSMENT PROCESS?YES HOUSING: RENTS APARTMENT. ADVANCE DIRECTIVE ADVANCE DIRECTIVE DISCUSSED WITH PATIENT:YES OSVALDO CHIN- REVIEWED WITH PT 07/13/18 1341 LASREVIEWED WITH PT 08/27/18 1030 LASREVIEWED WITH PT 09/15/18 1037 BVREVIEWED WITH PATIENT 11/09/18 1140 JSREVIEWED WITH PATIENT 12/22/18 1121 JS. HOSPITALIZATION/MAJOR DIAGNOSTIC PROCEDURE ABDOMINAL INFECTION FROM HYSTERECTOMY SURGERY - 10 DAYS IN ICU 03/2017 REVIEW OF SYSTEMS REVIEWED BY: PROVIDER: HILTON RIOS MD . CONSTITUTIONAL: ANY CHANGE IN YOUR MEDICAL CONDITION? NO . CHILLS NO . FEVER NO . INFECTION: DO YOU HAVE NEW INFECTIONS? NO . DO YOU HAVE HISTORY OF MRSA? NO . MUSCULOSKELETAL: ANY NEW PATTERNS OF PAIN OR NUMBNESS? NO . GASTROENTEROLOGY: ANY NEW CHANGE IN BOWEL CONTROL? NO . GENITOURINARY: ANY NEW CHANGE IN BLADDER CONTROL? NO . IS THERE A CHANCE YOU COULD BE ? NO . HEMATOLOGY/LYMPH: DO YOU TAKE ANY BLOOD THINNERS? (FOR EXAMPLE- COUMADIN, PLAVIX, AGGRENOX, PLATEL, PRADAXA, OR XARELTO) NO . WHEN WAS YOUR LAST DOSE? DATE: TIME: . NEUROLOGY: HAVE YOU FALLEN IN THE PAST 12 MONTHS? NO . ANY NEW EXTREMITY NUMBNESS OR WEAKNESS? NO . CARDIOLOGY: DO YOU HAVE A PACEMAKER OR DEFIBRILLATOR? NO . RESPIRATORY: HAVE YOU BEEN SICK IN THE PAST WEEK? NO . FEVER NO . FLU LIKE SYMPTOMS? NO . COUGH NO . INTEGUMENTARY: DO YOU HAVE ANY RASHES OR OPEN SORES? NO . ALLERGIC/IMMUNO: ARE YOU ALLERGIC TO IV DYE? NO . ANY NEW ALLERGIES? NO . PSYCHIATRIC: DO YOU HAVE THOUGHTS OF HURTING YOURSELF OR SOMEONE ELSE? NO . ARE YOU ABUSED, NEGLECTED, OR IN AN UNSAFE ENVIRONMENT? NO . ENDOCRINOLOGY: ARE YOU DIABETIC? NO . OTHER: DO YOU NEED ANY PRESCRIPTIONS? NO . IF YES, PLEASE LIST: ____ . ANY NEW PROBLEMS WITH YOUR MEDICATIONS? NO . WHEN DID YOU LAST EAT? ____ . WHEN DID YOU LAST DRINK? ____ . WHAT DID YOU LAST DRINK? ____ . NAME OF PERSON DRIVING YOU HOME? ____ . DO YOU HAVE ANY OTHER QUESTIONS OR CONCERNS YES, DR RIOS DISCUSSED FACET BLOCKS...WHAT IS THE STATUS? . VITAL SIGNS WT 153.8 LBS, HT 62", BMI 28.13 INDEX, BP 119/69 MM HG, HR 53 /MIN, RR 18 /MIN, TEMP 98.3 F, OXYGEN SAT % 99%, NA INITIALS SC 09:11, REVIEWED BY: EM. EXAMINATION GENERAL EXAMINATION: PATIENT IS ALERT O X 3 AND COOPERATIVE. PAIN INCREASES OVER THE LUMBAR FACET JOINTS WITH EXTENSION AND LATERAL ROTATION OF THE BACK. MRI OF THE LUMBAR SPINE DONE ON 01/14/2019 SHOWS FACET ARTHROPATHY CHANGES AT MULTIPLE LEVELS. ASSESSMENTS SPONDYLOSIS OF LUMBAR REGION WITHOUT MYELOPATHY OR RADICULOPATHY - M47.816 (PRIMARY) TREATMENT SPONDYLOSIS OF LUMBAR REGION WITHOUT MYELOPATHY OR RADICULOPATHY CLINICAL NOTES: WE DISCUSSED SEVERAL ISSUES WITH MRS. CHIN'S PAIN MANAGEMENT CASE. DUE TO THE LUMBAR SPONDYLOSIS, I WOULD LIKE TO MOVE FORWARD WITH A RIGHT L4-L5, L5-S1 THERAPEUTIC LUMBAR FACET BLOCK. WE DISCUSSED THE BENEFITS, RISKS, AND ALTERNATIVES OF THE INJECTION AND THE PATIENT WOULD LIKE TO PROCEED. THE PATIENT WILL FOLLOW UP A FEW WEEKS FOLLOWING THE INJECTION. INSTRUCTIONS WERE GIVEN, QUESTIONS WERE ANSWERED, PATIENT REPORTS UNDERSTANDING AND AGREES WITH THE PLAN. I, LAKSHMI SALEH, DOCUMENTED THE ABOVE INFORMATION ACTING A SCRIBE FOR DR. RIOS. I HAVE REVIEWED THE ABOVE DOCUMENT, WRITTEN BY LAKSHMI WYNN AND I VERIFY THAT IT IS ACCURATE. . PROCEDURE CODES [id number] ESTABILISHED PATIENT [facility] [id number] CURRENT MEDS W/DOSAGES DOCUMENTED [id number] PAIN ASSESS POS TOOL F/U PLAN DOC DISPOSITION & COMMUNICATION FOLLOW UP 6 WEEKS ELECTRONICALLY SIGNED BY HILTON RIOS MD, MD ON 02/28/2019 AT 03:25 PM EDT DISCLAIMER : THIS IS A VISIT SUMMARY EXTRACTED FROM THE [employer] CHART. IT IS NOT A COPY OF THE [employer] PROGRESS NOTE. MTDD
== END ==
LOC: M PAIN 09:00
PROVIDERS: ATTEND Anesthesiology
DX: M47.816 Spondylosis without myelopathy or radiculopathy, lumbar region (principal); Z79.899 Other long term (current) drug therapy; Z88.0 Allergy status to penicillin; Z88.2 Allergy status to sulfonamides; Z88.7 Allergy status to serum and vaccine

== ENCOUNTER → 2019-03-04 | Outpatient (CLI) | payer OTHER ==
[~2019-03-04] MED LIST changes: +BUPIVACAINE HCL 0.25% 30 ML VIAL As Ordered ONE; +ISOVUE-M 300 61% 15ML VIAL (Q9967) As Ordered ONE; +LIDOCAINE 1% SDV INJ 30 ML VIAL As Ordered ONE; +TRIAMCINOLONE ACETONIDE SUSP 40 MG/ML VIAL (J3301) As Ordered ONE; +diazePAM 5 MG TAB As Ordered ONE; +oxyCODONE 5MG TAB As Ordered ONE
--- NOTE | 2019-03-04 11:28 | REP ---
Partial lumbar spine series: Single view . History: Injection procedure for pain. 28th seconds of fluoroscopy time is reported. Findings: A single fluoroscopically obtained last image hold procedural spot radiograph of the lumbar spine documents needle position and contrast injection associated with injection procedure. Electronically Signed by Devonte Lenz MD 03/04/2019 11:19 A
--- NOTE | 2019-03-22 00:16 | ECWPNPC ---
PATIENT NAME: MIRZA CHIN : 1965 GENDER: FEMALE VISIT DATE: 03/04/2019 DISCHARGE DATE: 03/04/19 1138 VISIT LOCKED DATE TIME: PHYSICIAN: HILTON RIOS MD RESOURCE: HILTON RIOS MD REASON FOR APPOINTMENT 1. L3-4, L4-L5, L5-S1 THERAP. FACET BLOCK HISTORY OF PRESENT ILLNESS HISTORY OF PRESENT ILLNESS: PAIN THE PATIENT DESCRIBES THE PAIN... FALL RISK SCREENING: SCREENING :NO FALLS REPORTED IN THE LAST YEAR CURRENT MEDICATIONS TAKING MAY USE TAKING CELEBREX 200 MG CAPSULE 1 CAPSULE WITH FOOD ORALLY ONCE A DAY, NOTES: 03/03/19699 TAKING VITAMINS - (DIS) TABLET ORALLY , NOTES: 03/03/19699 TAKING CETIRIZINE HCL 10 MG TABLET 1 TABLET ORALLY ONCE A DAY, NOTES: 03/03/19699 TAKING VITAMIN D (ERGOCALCIFEROL) 2000 UNIT CAPSULE ORALLY , NOTES: 03/03/19699 TAKING TYLENOL 1 TAB ORALLY 2-3X/WEEK X 4 WEEKS, NOTES: > 1 WEEK TAKING DICLO GEL 1 % KIT TRANSDERMAL BID, NOTES: 03/04/19699 TAKING VITAMIN C 1000 MG TABLET 1 TABLET ORALLY ONCE A DAY, NOTES: 03/03/19699 NOT-TAKING BENZONATATE 200 MG CAPSULE 1 CAPSULE ORALLY THREE TIMES A DAY NEEDED FOR COUGH NOT-TAKING MOXIFLOXACIN HCL 0.5 % SOLUTION 1 GTT OU OPHTHALMIC THREE TIMES A DAY NOT-TAKING DOXYCYCLINE HYCLATE 100 MG CAPSULE 1 CAPSULE ORALLY EVERY 12 HRS NOT-TAKING NETI POT SINUS WASH 2300-700 MG KIT DIRECTED NASALLY BID NOT-TAKING FLONASE 50 MCG/ACT SUSPENSION 1 SPRAY IN EACH NOSTRIL NASALLY TWICE A DAY NOT-TAKING MUCINEX DM 30-600 MG TABLET EXTENDED RELEASE 12 HOUR 1 TABLET NEEDED ORALLY EVERY 12 HRS NOT-TAKING SUDAFED 12 HOUR 120 MG TABLET EXTENDED RELEASE 12 HOUR 1 TABLET NEEDED ORALLY EVERY 12 HRS NOT-TAKING SUPER B COMPLEX MEDICATION LIST REVIEWED AND RECONCILED WITH THE PATIENT PAST MEDICAL HISTORY 02/2017 HYSTERECTOMY, PROLAPSE REPAIR, URETHRAL SLING 2007 CRUMP FRACTURE L FOOT ALLERGIES PENICILLIN (FOR ALLERGIES USE ONLY): HIVES - ALLERGY SULFA (FOR ALLERGY USE ONLY): HIVES - ALLERGY INFLUENZA VIRUS VACCINE SPLIT SURGICAL HISTORY BUNIONECTOMY LEFT FOOT 12/06 TONSILLECTOMY-ADNOIDS 2001 BUINIONECTOMY RIGHT FOOT 09/2011 HAMMERTOE SX RIGHT FOOT CORRECTION LEFT FOOT SURGERY 03/2013 FUSION LEFT FOOT 03/2015 HARDWARE REMOVAL 11/2016 HYSTER, PROLAPSE REPAIR, URETHRAL SLING 02/2017 EMERGENCY SURGERY FOR ABDOMINAL INFECTION - FROM HYSTERECTOMY 03/2017 BIOPSY LEFT UPPER LIP 04/24/18 FAMILY HISTORY FATHER: 64 YRS MOTHER: 83 YRS, DIAGNOSED WITH HYPERTENSION, HEART DISEASE 5 BROTHER(S) , 4 SISTER(S) . 2 SON(S) , 1 DAUGHTER(S) - HEALTHY. FATHER - OF LUNG DISEASE\\\\NBROTHER - HEART ISSUES\\\\NBROTHER HAD PROSTATE CANCER\\\\N. SOCIAL HISTORY GENERAL: TOBACCO USE ARE YOU A:NONSMOKER LATEX QUESTIONNAIRE LATEX ALLERGY : HAVE YOU EVER DEVELOPED ANY TYPE OF REACTION AFTER HANDLING LATEX PRODUCTS SUCH RUBBER GLOVES, CONDOMS, DIAPHRAGMS, BALLOONS, SOCKS, OR UNDERWEAR?NO LATEX ALLERGY : HAVE YOU EVER DEVELOPED ANY TYPE OF REACTION DURING OR AFTER DENTAL APPOINTMENT, VAGINAL/RECTAL EXAMINATION, SURGICAL PROCEDURE, OR ANY OTHER EXPOSURE?NO LATEX RISK : HAVE YOU EVER HAD ANY DIFFICULTY BREATHING OR HIVES AFTER EATING OR HANDLING ANY FRUITS, OR VEGETABLES; SUCH KIWI, BANANAS, STONE FRUITS, OR CHESTNUTSNO LATEX RISK : DO YOU HAVE A PREVIOUS PERSONAL HISTORY OF MORE THAN NINE SURGERIES, SPINA BIFIDA, OR REPEATED CATHERTIZATIONS? YES - PLEASE INDICATE : > 9 SURGERIES LATEX RISK : ARE YOU FREQUENTLY EXPOSED TO LATEX PRODUCTS IN YOUR OCCUPATION?YES DATE ASKED : 03/04/2019 ALCOHOL SCREENING DID YOU HAVE A DRINK CONTAINING ALCOHOL IN THE PAST YEAR?NO POINTS0 INTERPRETATIONNEGATIVE RECREATIONAL DRUG USE DRUG USE?NO CAFFEINE CAFFEINE USE?YES HOW OFTEN AND HOW MUCH? 1-3 CUPS PER DAY BAPTISM [id number] CHRISTIAN LANGUAGE LANGUAGES SPOKEN:LATVIAN LEARNING BARRIERS / SPECIAL NEEDS BARRIERS TO LEARNING?NO HEARING IMPAIRED?NO VISION IMPAIRED?YES :CORRECTIVE LENSES COGNITIVELY IMPAIRED?NO READINESS TO LEARN?YES LEARNING PREFERENCES?NO LEARNING CAPABILITIES PRESENT?YES EMOTIONAL BARRIERS?NO SPECIAL DEVICES?NO VIDEO TAPE TRANSFERRER NEEDED?NO OCCUPATION: COSMOTOLGIST. DIET: REGULAR. EXERCISE: NO REGULAR EXERCISE. MARITAL STATUS: . OTHERS AT HOME: SPOUSE. IMMUNIZATION PROGRAM SPOUSE. NEW PATIENT PAIN DIARY PATIENT DESCRIBES PAIN :ACHING, HAVE IT ALL THE TIME, SHARP, STABBING, SORE, OTHER FROM 0-10, WHAT LEVEL IS YOUR PAIN TODAY?5 PRECIPITATING FACTORS PROLONGED STANDING OR SITTING, LIFTING, NO EXERCISE MAKE IT MUCH WORSE ALLEVIATING FACTORS SWIMMING IMPACT ON FUNCTION CAN'T STAY IN ONE PLACE FOR LONG PERIODS OF TIME NAME OF PERSON DRIVING YOU HOME SELF IS THERE A CHANCE YOU COULD BE ? NO HAVE YOU BEEN SICK IN THE LAST WEEK (COLD, COUGH, FEVER, FLU, ETC) NO DO YOU TAKE ANY BLOOD THINNERS? NO DO YOU HAVE ANY RASHES OR OPEN SORES? NO ANY CHANGE IN BOWEL OR BLADDER CONTROL? NO ARE YOU ALLERGIC TO SHELLFISH OR IV DYE? NO ARE YOU DIABETIC? NO DO YOU HAVE A PACEMAKER OR DEFIBRILLATOR? NO ANY NEW PROBLEMS WITH MEDICINES OR NEW ALLERGIES NO ANY NEW PATTERNS OF PAIN OR NUMBNESS? PAIN HAS INCREASED DUE TO INABILITY TO SWIM ANY CHANGE IN YOUR MEDICAL CONDITION? NO HAVE YOU FALLEN IN THE LAST 6 MONTHS? NO DO YOU USE ANY TYPE OF TOBACCO (SMOKE, SMOKELESS, CHEW, ETC.) NO ARE YOU ABUSED, NEGLECTED, OR IN AN UNSAFE ENVIRONMENT? NO DO YOU HAVE THOUGHTS OF HURTING YOURSELF OR SOMEONE ELSE? NO DO YOU NEED ANY PRESCRIPTIONS? NO DO YOU HAVE ANY OTHER QUESTIONS OR CONCERNS? NO, PT HAS BONE BIOPSY SCHEDULED FOR FOOT, TO MAKE SURE THERE ISN'T ANY INFECTION INTENSITY SCALE REVIEWED YES PAIN CLINIC PFS, CLERGY, PUBLIC HEALTH REFERRALS PUBLIC HEALTH REFERRAL NEEDED?NO WAS THE PROVIDER NOTIFIED OF ANY PERTINENT INFO?YES HAS THE PATIENT BEEN EDUCATED REGARDING HIS/HER PLAN OF CARE?YES HAS THE PATIENT BEEN EDUCATED REGARDING PAIN, THE RISK FOR PAIN, THE IMPORTANCE OF EFFECTIVE PAIN MANAGEMENT, AND THE PAIN ASSESSMENT PROCESS?YES HOUSING: RENTS APARTMENT. ADVANCE DIRECTIVE ADVANCE DIRECTIVE DISCUSSED WITH PATIENT:YES OSVALDO CHIN- REVIEWED WITH PT 07/13/18 1341 LASREVIEWED WITH PT 08/27/18 1030 LASREVIEWED WITH PT 09/15/18 1037 BVREVIEWED WITH PATIENT 11/09/18 1140 JSREVIEWED WITH PATIENT 12/22/18 1121 JSREVIEWED WITH PATIENT 03/04/19 1003 LAS. HOSPITALIZATION/MAJOR DIAGNOSTIC PROCEDURE ABDOMINAL INFECTION FROM HYSTERECTOMY SURGERY - 10 DAYS IN ICU 03/2017 REVIEW OF SYSTEMS REVIEWED BY: PROVIDER: . CONSTITUTIONAL: ANY CHANGE IN YOUR MEDICAL CONDITION? NO . CHILLS NO . FEVER NO . INFECTION: DO YOU HAVE NEW INFECTIONS? NO . DO YOU HAVE HISTORY OF MRSA? NO . MUSCULOSKELETAL: ANY NEW PATTERNS OF PAIN OR NUMBNESS? NO . GASTROENTEROLOGY: ANY NEW CHANGE IN BOWEL CONTROL? NO . GENITOURINARY: ANY NEW CHANGE IN BLADDER CONTROL? NO . IS THERE A CHANCE YOU COULD BE ? NO . HEMATOLOGY/LYMPH: DO YOU TAKE ANY BLOOD THINNERS? (FOR EXAMPLE- COUMADIN, PLAVIX, AGGRENOX, PLATEL, PRADAXA, OR XARELTO) NO . WHEN WAS YOUR LAST DOSE? DATE: TIME: . NEUROLOGY: HAVE YOU FALLEN IN THE PAST 12 MONTHS? NO . ANY NEW EXTREMITY NUMBNESS OR WEAKNESS? NO . CARDIOLOGY: DO YOU HAVE A PACEMAKER OR DEFIBRILLATOR? NO . RESPIRATORY: HAVE YOU BEEN SICK IN THE PAST WEEK? NO . FEVER NO . FLU LIKE SYMPTOMS? NO . COUGH NO . INTEGUMENTARY: DO YOU HAVE ANY RASHES OR OPEN SORES? NO . ALLERGIC/IMMUNO: ARE YOU ALLERGIC TO IV DYE? NO . ANY NEW ALLERGIES? NO . PSYCHIATRIC: DO YOU HAVE THOUGHTS OF HURTING YOURSELF OR SOMEONE ELSE? NO . ARE YOU ABUSED, NEGLECTED, OR IN AN UNSAFE ENVIRONMENT? NO . ENDOCRINOLOGY: ARE YOU DIABETIC? NO . OTHER: DO YOU NEED ANY PRESCRIPTIONS? NO . IF YES, PLEASE LIST: ____ . ANY NEW PROBLEMS WITH YOUR MEDICATIONS? NO . WHEN DID YOU LAST EAT? ____1999 . WHEN DID YOU LAST DRINK? ____03/04/19 0715 . WHAT DID YOU LAST DRINK? ____WATER . NAME OF PERSON DRIVING YOU HOME? ____JAMES . DO YOU HAVE ANY OTHER QUESTIONS OR CONCERNS NO . VITAL SIGNS WT 152 LBS, HT 62", BMI 27.80 INDEX, BP 106/67 MM HG, HR 64 /MIN, RR 18 /MIN, TEMP 98.7 F, OXYGEN SAT % 98%, SAFE IN ENV? (Y/N) YES, REVIEWED BY: ASSESSMENTS SPONDYLOSIS OF LUMBAR REGION WITHOUT MYELOPATHY OR RADICULOPATHY - M47.816 (PRIMARY) SPONDYLOSIS OF LUMBOSACRAL REGION WITHOUT MYELOPATHY OR RADICULOPATHY - M47.817 TREATMENT SPONDYLOSIS OF LUMBAR REGION WITHOUT MYELOPATHY OR RADICULOPATHY SMC FACET BLOCK (PAIN)[id number] PROCEDURES PN LUMBAR FACET BLOCK THERAPEUTIC PRE PROCEDURE DIAGNOSIS LUMBAR SPONDYLOSIS, LUMBOSACRAL SPONDYLOSIS POST PROCEDURE DIAGNOSIS LUMBAR SPONDYLOSIS, LUMBOSACRAL SPONDYLOSIS PROCEDURE RIGHT L3 - L4, RIGHT L4 - L5, AND RIGHT L5 - S1 LUMBAR FACET THERAPEUTIC BLOCK SURGEON DR. HILTON RIOS POWER SYSTEM ENGINEER NONE ANESTHESIA LOCAL PRE PROCEDURE NOTE THE PATIENT HAS A HISTORY OF CHRONIC LOW BACK PAIN. I EVALUATED THE PATIENT AND REVIEWED THE CHART. I WENT OVER THE RISKS, ALTERNATIVES, AND BENEFITS ASSOCIATED WITH THIS PROCEDURE. THE PATIENT WOULD LIKE TO PROCEED AND GIVE CONSENT TO PERFORMED THE PROCEDURE. THE PATIENT DENIES UNEXPLAINABLE WEIGHT LOSS, FEVER, CHILLS, OR NEW CHANGES IN URINARY OR BOWEL CONTROL DESCRIPTION OF PROCEDURE THE PATIENT WAS BROUGHT TO THE PROCEDURE ROOM AND PLACED IN THE PRONE POSITION. THE LUMBOSACRAL AREA WAS CLEANED WITH CHLORAPREP SOLUTION AND DRAPED ASEPTICALLY. THE PROCEDURE WAS DONE UNDER STERILE CONDITIONS. I CHECKED LATERALITY AND THE LEVEL WHERE THE PROCEDURE WAS GOING TO BE PERFORMED WITH THE PATIENT AND THE SUPPORTING STAFF AT THE MOMENT OF THE TIME OUT IN THE PROCEDURE ROOM. UNDER FLUOROSCOPIC GUIDANCE, THE TARGET POINT WAS SELECTED AT THE RIGHT L3-L4, RIGHT L4-L5, AND RIGHT L5-S1 FACET JOINT. TARGET POINT WAS SELECTED AFTER LATERAL ROTATION AND TILT OF THE MAGNIFIER OF THE C-ARM. LIDOCAINE 0.5% WAS USED TO NUMB THE SKIN AND THE SUBCUTANEOUS TISSUE BELOW IT. SPINAL NEEDLES, 22-GAUGE, WERE ADVANCED UNDER FLUOROSCOPIC GUIDANCE AND FOLLOWING PATIENT FEEDBACK UNTIL THE TARGETS WERE TOUCHED. THE POSITION OF THE NEEDLES WAS VERIFIED WITH AP AND LATERAL VIEWS. AFTER PROPER POSITION OF THE NEEDLES WAS ACHIEVED, ISOVUE-M DYE 30% 0.1 ML WAS INJECTED SHOWING ADEQUATE SPREAD OF THE DYE. THEN A SOLUTION OF 1.9 ML OF BUPIVACAINE 0.125% OF KENALOG 10 MG WAS INJECTED AT EACH SITE. THERE WAS NO EVIDENCE OF BLOOD, PARESTHESIA OR CEREBROSPINAL FLUID DURING THE PROCEDURE. THE PATIENT WAS SENT TO THE RECOVERY ROOM. THE PATIENT WAS MOVING THE EXTREMITIES AND DOING WELL. THERE WAS NO COMPLICATION DURING THE PROCEDURE. FLUOROSCOPY TIME WAS 28 SECONDS POST PROCEDURE NOTE THE PATIENT WILL BE SEEN IN A FOLLOW UP IN THE NEXT FEW WEEKS. INSTRUCTIONS WERE GIVEN, QUESTIONS WERE ANSWERED, AND THE PATIENT EXPRESSED UNDERSTANDING AND AGREES WITH THE PLAN. I, ARTURO MIRZA, DOCUMENTED THE ABOVE INFORMATION ACTING A SCRIBE FOR DR. RIOS. I HAVE REVIEWED THE ABOVE DOCUMENT, WRITTEN BY ARTURO WYNN AND I VERIFY THAT IT IS ACCURATE. PROCEDURE CODES [id number] INJ PARAVERT F JNT L/S 1 LEV, MODIFIERS: [place] [address]200 INJ PARAVERT F JNT L/S 2 LEV, MODIFIERS: [place] 45612 INJ PARAVERT F JNT L/S 3 LEV, MODIFIERS: RT 6045F RADXPS IN END [id number] PXD DISPOSITION & COMMUNICATION FOLLOW UP 3 WEEKS ELECTRONICALLY SIGNED BY HILTON RIOS MD, ON 03/21/2019 AT 07:20 PM EDT DISCLAIMER : THIS IS A VISIT SUMMARY EXTRACTED FROM THE [employer] CHART. IT IS NOT A COPY OF THE [employer] PROGRESS NOTE. MTDD
== END ==
LOC: M PAIN 10:00
PROVIDERS: ATTEND Anesthesiology
DX: G89.29 Other chronic pain (principal); M47.816 Spondylosis without myelopathy or radiculopathy, lumbar region; M47.817 Spondylosis without myelopathy or radiculopathy, lumbosacral region; Z79.899 Other long term (current) drug therapy; Z88.0 Allergy status to penicillin; Z88.2 Allergy status to sulfonamides; Z88.7 Allergy status to serum and vaccine
CPT/HCPCS: 64493; 64494; 64495; J3301; Q9967

== ENCOUNTER → 2019-03-15 | Outpatient (REF) | payer OTHER ==
[~2019-03-15] MED LIST changes: -BUPIVACAINE HCL 0.25% 30 ML VIAL As Ordered ONE; -ISOVUE-M 300 61% 15ML VIAL (Q9967) As Ordered ONE; -LIDOCAINE 1% SDV INJ 30 ML VIAL As Ordered ONE; -TRIAMCINOLONE ACETONIDE SUSP 40 MG/ML VIAL (J3301) As Ordered ONE; -diazePAM 5 MG TAB As Ordered ONE; -oxyCODONE 5MG TAB As Ordered ONE
[2019-03-15 13:19] LABS: BASO % 0.6 % (0.0-1.0); EOS % 0.6 % (0.0-3.0); HEMATOCRIT 35.9 % (36.0-47.0); HEMOGLOBIN 11.8 g/dl (12.0-15.5); LYMPH # 1.2 10^3/uL (1.5-4.5); LYMPH % 25.5 % (24.0-44.0); MEAN CORPUSCULAR HEMOGLOBIN 31.4 pg (27.0-33.0); MEAN CORPUSCULAR HGB CONC 32.9 g/dl (32.0-36.5); MEAN CORPUSCULAR VOLUME 95.5 fl (80.0-96.0); MONO # 0.6 10^3/uL (0.0-0.8); MONO % 12.3 % (0.0-5.0); NEUTROPHILS # 2.9 10^3/uL (1.8-7.7); NEUTROPHILS % 60.6 % (36.0-66.0); PLATELET COUNT, AUTOMATED 243 10^3/uL (150-450); RED BLOOD COUNT 3.76 10^6/uL (4.00-5.40); WHITE BLOOD COUNT 4.8 10^3/uL (4.0-10.0)
[2019-03-15 13:34] LABS: ALBUMIN 3.9 GM/DL (3.2-5.2); ALT/SGPT 23 U/L (12-78); BILIRUBIN,TOTAL 0.7 MG/DL (0.2-1.0); BLOOD UREA NITROGEN 15 MG/DL (7-18); CALCIUM LEVEL 8.9 MG/DL (8.5-10.1); CARBON DIOXIDE LEVEL 31 MEQ/L (21-32); CHLORIDE LEVEL 106 MEQ/L (98-107); CREATININE FOR GFR 0.92 MG/DL (0.55-1.30); GLOMERULAR FILTRATION RATE > 60.0 (>51); GLUCOSE, FASTING 72 MG/DL (70-100); RHEUMATOID FACTOR QUANT < 10.0 IU/ML (<15.0); SODIUM LEVEL 141 MEQ/L (136-145); TOTAL PROTEIN 6.6 GM/DL (6.4-8.2); VITAMIN B12 LEVEL 483 PG/ML (247-911)
[2019-03-15 13:35] LABS: FOLATE > 24.0 NG/ML (>5.4)
[2019-03-15 15:38] LABS: HEMOGLOBIN A1c 5.5 %
[2019-03-15 22:02] LABS: ERYTHROCYTE SEDIMENTATION RATE 18 mm/hr (0-30)
[2019-03-16 10:43] LABS: DRVV SCREEN 37.2 SEC
[2019-03-16 10:49] LABS: PTT LUPUS TYPE ANTICOAG SCREEN 0.9 (0-1.2)
[2019-03-17 10:53] LABS: ALBUMIN % 62.7 % (55.8-66.1); ALPHA-1-GLOBULIN % 4.5 % (2.9-4.9); ALPHA-2-GLOBULINS % 9.8 % (7.1-11.8); BETA-1-GLOBULINS % 6.4 % (4.7-7.2)
[2019-03-17 10:54] LABS: ALBUMIN 4.14 GM/DL (3.29-5.55); ALPHA-2-GLOBULINS 0.65 GM/DL (0.42-0.99); BETA-1-GLOBULINS 0.42 GM/DL (0.28-0.60); BETA-2-GLOBULINS % 4.6 % (3.2-6.5); GAMMA GLOBULINS 0.79 GM/DL (0.65-1.58)
== END ==
LOC: M LABNEURO 08:44
PROVIDERS: ATTEND Psychiatry & Neurology Neurology
DX: G62.9 Polyneuropathy, unspecified (principal)

== ENCOUNTER → 2019-03-25 | Outpatient (CLI) | payer OTHER ==
--- NOTE | 2019-04-12 00:39 | ECWPNPC ---
PATIENT NAME: MIRZA CHIN : 1965 GENDER: FEMALE VISIT DATE: 03/25/2019 DISCHARGE DATE: 03/25/19 1605 VISIT LOCKED DATE TIME: PHYSICIAN: HILTON RIOS MD RESOURCE: HILTON RIOS MD REASON FOR APPOINTMENT 1. 6 WEEKS/& POST PROCEDURE/ LB AND LEG PAIN HISTORY OF PRESENT ILLNESS HISTORY OF PRESENT ILLNESS: PAIN THE PATIENT DESCRIBES THE PAIN... 53 YEAR OLD FEMALE PATIENT WITH A HISTORY OF CHRONIC LOW BACK AND LEG PAIN. THE PATIENT DESCRIBES THE PAIN ACHING, SHOOTING, SHARP, SORE, AND CONTINUOUS WITH A PAIN SCORE OF 1-6/10 DEPENDING ON PHYSICAL ACTIVITY. THE PATIENT SAYS THE PAIN STARTS IN HER LOWER BACK AND RADIATES MAINLY TO HER RIGHT HIP AND RIGHT LEG. THE PATIENT RECEIVED A RIGHT THERAPEUTIC FACET BLOCK DONE ON 03/04/2019, WHICH SHE SAYS HELPED IMPROVE THE PAIN FOR SEVERAL WEEKS, BUT THE PAIN HAS SINCE RETURNED. PATIENT DENIES UNEXPLAINABLE WEIGHT LOSS, FEVER, CHILLS, NEW CHANGES ON HER URINARY OR BOWEL CONTROL. FALL RISK SCREENING: SCREENING :NO FALLS REPORTED IN THE LAST YEAR CURRENT MEDICATIONS TAKING VITAMINS - (DIS) TABLET ORALLY , NOTES: 03/03/19699 TAKING CETIRIZINE HCL 10 MG TABLET 1 TABLET ORALLY ONCE A DAY, NOTES: 03/03/19699 TAKING VITAMIN D (ERGOCALCIFEROL) 2000 UNIT CAPSULE ORALLY , NOTES: 03/03/19699 TAKING TYLENOL 1 TAB ORALLY 2-3X/WEEK X 4 WEEKS, NOTES: > 1 WEEK TAKING DICLO GEL 1 % KIT TRANSDERMAL BID, NOTES: 03/04/19699 TAKING VITAMIN C 1000 MG TABLET 1 TABLET ORALLY ONCE A DAY, NOTES: 03/03/19699 TAKING OMEPRAZOLE 20 MG CAPSULE DELAYED RELEASE 1 CAPSULE ORALLY ONCE A DAY TAKING SUPER B COMPLEX TAKING DICLOFENAC SODIUM 75 MG TABLET DELAYED RELEASE 1 TABLET WITH FOOD OR MILK ORALLY TWICE A DAY NOT-TAKING CELEBREX 200 MG CAPSULE 1 CAPSULE WITH FOOD ORALLY ONCE A DAY, NOTES: 03/03/19699 NOT-TAKING BENZONATATE 200 MG CAPSULE 1 CAPSULE ORALLY THREE TIMES A DAY NEEDED FOR COUGH NOT-TAKING MOXIFLOXACIN HCL 0.5 % SOLUTION 1 GTT OU OPHTHALMIC THREE TIMES A DAY NOT-TAKING DOXYCYCLINE HYCLATE 100 MG CAPSULE 1 CAPSULE ORALLY EVERY 12 HRS NOT-TAKING NETI POT SINUS WASH 2300-700 MG KIT DIRECTED NASALLY BID NOT-TAKING FLONASE 50 MCG/ACT SUSPENSION 1 SPRAY IN EACH NOSTRIL NASALLY TWICE A DAY NOT-TAKING MUCINEX DM 30-600 MG TABLET EXTENDED RELEASE 12 HOUR 1 TABLET NEEDED ORALLY EVERY 12 HRS NOT-TAKING SUDAFED 12 HOUR 120 MG TABLET EXTENDED RELEASE 12 HOUR 1 TABLET NEEDED ORALLY EVERY 12 HRS DISCONTINUED DICLOFENAC 18 MG CAPSULE 1 CAPSULE WITH FOOD OR MILK NEEDED ORALLY THREE TIMES A DAY UNKNOWN MAY USE MEDICATION LIST REVIEWED AND RECONCILED WITH THE PATIENT PAST MEDICAL HISTORY 02/2017 HYSTERECTOMY, PROLAPSE REPAIR, URETHRAL SLING 2007 CRUMP FRACTURE L FOOT ALLERGIES PENICILLIN (FOR ALLERGIES USE ONLY): HIVES - ALLERGY SULFA (FOR ALLERGY USE ONLY): HIVES - ALLERGY INFLUENZA VIRUS VACCINE SPLIT SURGICAL HISTORY BUNIONECTOMY LEFT FOOT 12/06 TONSILLECTOMY-ADNOIDS 2000 BUINIONECTOMY RIGHT FOOT 09/2011 HAMMERTOE SX RIGHT FOOT CORRECTION LEFT FOOT SURGERY 03/2013 FUSION LEFT FOOT 03/2015 HARDWARE REMOVAL 11/2016 HYSTER, PROLAPSE REPAIR, URETHRAL SLING 02/2017 EMERGENCY SURGERY FOR ABDOMINAL INFECTION - FROM HYSTERECTOMY 03/2017 BIOPSY LEFT UPPER LIP 04/24/18 FAMILY HISTORY FATHER: 64 YRS MOTHER: 83 YRS, DIAGNOSED WITH HYPERTENSION, HEART DISEASE 5 BROTHER(S) , 4 SISTER(S) . 2 SON(S) , 1 DAUGHTER(S) - HEALTHY. FATHER - OF LUNG DISEASE\\\\\\\\NBROTHER - HEART ISSUES\\\\\\\\NBROTHER HAD PROSTATE CANCER\\\\\\\\N. SOCIAL HISTORY GENERAL: TOBACCO USE ARE YOU A:NONSMOKER IMMUNIZATION PROGRAM SPOUSE. OTHERS AT HOME: SPOUSE. HOUSING: RENTS APARTMENT. DIET: REGULAR. LANGUAGE LANGUAGES SPOKEN:UPPER SORBIAN NEW PATIENT PAIN DIARY PATIENT DESCRIBES PAIN :ACHING, HAVE IT ALL THE TIME, SHARP, STABBING, SORE, OTHER FROM 0-10, WHAT LEVEL IS YOUR PAIN TODAY?5 PRECIPITATING FACTORS PROLONGED STANDING OR SITTING, LIFTING, NO EXERCISE MAKE IT MUCH WORSE ALLEVIATING FACTORS SWIMMING IMPACT ON FUNCTION CAN'T STAY IN ONE PLACE FOR LONG PERIODS OF TIME NAME OF PERSON DRIVING YOU HOME SELF IS THERE A CHANCE YOU COULD BE ? NO HAVE YOU BEEN SICK IN THE LAST WEEK (COLD, COUGH, FEVER, FLU, ETC) NO DO YOU TAKE ANY BLOOD THINNERS? NO DO YOU HAVE ANY RASHES OR OPEN SORES? NO ANY CHANGE IN BOWEL OR BLADDER CONTROL? NO ARE YOU ALLERGIC TO SHELLFISH OR IV DYE? NO ARE YOU DIABETIC? NO DO YOU HAVE A PACEMAKER OR DEFIBRILLATOR? NO ANY NEW PROBLEMS WITH MEDICINES OR NEW ALLERGIES NO ANY NEW PATTERNS OF PAIN OR NUMBNESS? PAIN HAS INCREASED DUE TO INABILITY TO SWIM ANY CHANGE IN YOUR MEDICAL CONDITION? NO HAVE YOU FALLEN IN THE LAST 6 MONTHS? NO DO YOU USE ANY TYPE OF TOBACCO (SMOKE, SMOKELESS, CHEW, ETC.) NO ARE YOU ABUSED, NEGLECTED, OR IN AN UNSAFE ENVIRONMENT? NO DO YOU HAVE THOUGHTS OF HURTING YOURSELF OR SOMEONE ELSE? NO DO YOU NEED ANY PRESCRIPTIONS? NO DO YOU HAVE ANY OTHER QUESTIONS OR CONCERNS? NO, PT HAS BONE BIOPSY SCHEDULED FOR FOOT, TO MAKE SURE THERE ISN'T ANY INFECTION INTENSITY SCALE REVIEWED YES RECREATIONAL DRUG USE DRUG USE?NO EXERCISE: NO REGULAR EXERCISE. LEARNING BARRIERS / SPECIAL NEEDS BARRIERS TO LEARNING?NO HEARING IMPAIRED?NO VISION IMPAIRED?YES COGNITIVELY IMPAIRED?NO :CORRECTIVE LENSES READINESS TO LEARN?YES LEARNING PREFERENCES?NO LEARNING CAPABILITIES PRESENT?YES EMOTIONAL BARRIERS?NO SPECIAL DEVICES?NO SYSTEMS PROGRAMMER NEEDED?NO PAIN CLINIC PFS, CLERGY, PUBLIC HEALTH REFERRALS PUBLIC HEALTH REFERRAL NEEDED?NO WAS THE PROVIDER NOTIFIED OF ANY PERTINENT INFO?YES HAS THE PATIENT BEEN EDUCATED REGARDING HIS/HER PLAN OF CARE?YES HAS THE PATIENT BEEN EDUCATED REGARDING PAIN, THE RISK FOR PAIN, THE IMPORTANCE OF EFFECTIVE PAIN MANAGEMENT, AND THE PAIN ASSESSMENT PROCESS?YES LATEX QUESTIONNAIRE LATEX ALLERGY : HAVE YOU EVER DEVELOPED ANY TYPE OF REACTION AFTER HANDLING LATEX PRODUCTS SUCH RUBBER GLOVES, CONDOMS, DIAPHRAGMS, BALLOONS, SOCKS, OR UNDERWEAR?NO LATEX ALLERGY : HAVE YOU EVER DEVELOPED ANY TYPE OF REACTION DURING OR AFTER DENTAL APPOINTMENT, VAGINAL/RECTAL EXAMINATION, SURGICAL PROCEDURE, OR ANY OTHER EXPOSURE?NO DATE ASKED : 03/04/2019 LATEX RISK : HAVE YOU EVER HAD ANY DIFFICULTY BREATHING OR HIVES AFTER EATING OR HANDLING ANY FRUITS, OR VEGETABLES; SUCH KIWI, BANANAS, STONE FRUITS, OR CHESTNUTSNO LATEX RISK : DO YOU HAVE A PREVIOUS PERSONAL HISTORY OF MORE THAN NINE SURGERIES, SPINA BIFIDA, OR REPEATED CATHERTIZATIONS? YES - PLEASE INDICATE : > 9 SURGERIES LATEX RISK : ARE YOU FREQUENTLY EXPOSED TO LATEX PRODUCTS IN YOUR OCCUPATION?YES CAFFEINE CAFFEINE USE?YES HOW OFTEN AND HOW MUCH? 1-3 CUPS PER DAY ADVANCE DIRECTIVE ADVANCE DIRECTIVE DISCUSSED WITH PATIENT:YES OSVALDO CHIN- EPISCOPALIAN [id number] [employer]IST MARITAL STATUS: . ALCOHOL SCREENING DID YOU HAVE A DRINK CONTAINING ALCOHOL IN THE PAST YEAR?NO POINTS0 INTERPRETATIONNEGATIVE OCCUPATION: COSMOTOLGIST. REVIEWED WITH PT 07/13/18 1341 LASREVIEWED WITH PT 08/27/18 1030 LASREVIEWED WITH PT 09/15/18 1037 BVREVIEWED WITH PATIENT 11/09/18 1140 JSREVIEWED WITH PATIENT 12/22/18 1121 JSREVIEWED WITH PATIENT 03/25/19 1515 LASREVIEWED WITH PATIENT 03/04/19 1003 LAS. HOSPITALIZATION/MAJOR DIAGNOSTIC PROCEDURE ABDOMINAL INFECTION FROM HYSTERECTOMY SURGERY - 10 DAYS IN ICU 03/2017 REVIEW OF SYSTEMS REVIEWED BY: PROVIDER: HILTON RIOS MD . CONSTITUTIONAL: ANY CHANGE IN YOUR MEDICAL CONDITION? NO . CHILLS NO . FEVER NO . INFECTION: DO YOU HAVE NEW INFECTIONS? NO . DO YOU HAVE HISTORY OF MRSA? NO . MUSCULOSKELETAL: ANY NEW PATTERNS OF PAIN OR NUMBNESS? YES PT REPORTS INCREASED FREQUENCY OF PAIN RADIATING TO HIP AND RIGHT BUTTOCKS . GASTROENTEROLOGY: ANY NEW CHANGE IN BOWEL CONTROL? NO . GENITOURINARY: ANY NEW CHANGE IN BLADDER CONTROL? NO . IS THERE A CHANCE YOU COULD BE ? NO . HEMATOLOGY/LYMPH: DO YOU TAKE ANY BLOOD THINNERS? (FOR EXAMPLE- COUMADIN, PLAVIX, AGGRENOX, PLATEL, PRADAXA, OR XARELTO) NO . WHEN WAS YOUR LAST DOSE? DATE: TIME: . NEUROLOGY: HAVE YOU FALLEN IN THE PAST 12 MONTHS? NO . ANY NEW EXTREMITY NUMBNESS OR WEAKNESS? YES PT REPORTS SEVERE LEG CRAMPING, ALSO NUMBNESS RIGHT FOOT . CARDIOLOGY: DO YOU HAVE A PACEMAKER OR DEFIBRILLATOR? NO . RESPIRATORY: HAVE YOU BEEN SICK IN THE PAST WEEK? NO . FEVER NO . FLU LIKE SYMPTOMS? NO . COUGH NO . INTEGUMENTARY: DO YOU HAVE ANY RASHES OR OPEN SORES? NO . ALLERGIC/IMMUNO: ARE YOU ALLERGIC TO IV DYE? NO . ANY NEW ALLERGIES? NO . PSYCHIATRIC: DO YOU HAVE THOUGHTS OF HURTING YOURSELF OR SOMEONE ELSE? NO . ARE YOU ABUSED, NEGLECTED, OR IN AN UNSAFE ENVIRONMENT? NO . ENDOCRINOLOGY: ARE YOU DIABETIC? NO . OTHER: DO YOU NEED ANY PRESCRIPTIONS? NO . IF YES, PLEASE LIST: ____ . ANY NEW PROBLEMS WITH YOUR MEDICATIONS? NO . WHEN DID YOU LAST EAT? ____ . WHEN DID YOU LAST DRINK? ____ . WHAT DID YOU LAST DRINK? ____ . NAME OF PERSON DRIVING YOU HOME? ____ . DO YOU HAVE ANY OTHER QUESTIONS OR CONCERNS YES, WHAT IS NEXT STEP . VITAL SIGNS WT 153.2 LBS, HT 62", BMI 28.02 INDEX, BP 93/59 MM HG, HR 79 /MIN, RR 18 /MIN, TEMP 98.2 F, OXYGEN SAT % 97%, SAFE IN ENV? (Y/N) YES, NA INITIALS AW 1412, REVIEWED BY: FREDERICK. EXAMINATION GENERAL EXAMINATION: PATIENT IS ALERT O X 3 AND COOPERATIVE. TENDERNESS IN THE LOW BACK. STRAIGHT LEG RAISE OF THE RIGHT LEG IS POSITIVE FOR RADICULOPATHY AT 40 DEGREES. RIGHT LEG IS WEAKER AT EXTENSION AND FLEXION. MRI OF THE LUMBAR SPINE DONE ON 01/14/2019 SHOWS BULGING DISCS AT L5-S1 LEVEL. ASSESSMENTS INTERVERTEBRAL DISC DISORDER WITH RADICULOPATHY OF LUMBAR REGION - M51.16 (PRIMARY) TREATMENT INTERVERTEBRAL DISC DISORDER WITH RADICULOPATHY OF LUMBAR REGION CLINICAL NOTES: WE DISCUSSED SEVERAL ISSUES WITH MS. CHIN'S PAIN MANAGEMENT CASE. DUE TO THE LUMBAR RADICULOPATHY, I WOULD LIKE TO MOVE FORWARD WITH A LUMBAR EPIDURAL STEROID INJECTION AT THIS TIME. WE DISCUSSED THE BENEFITS, RISKS, AND ALTERNATIVES OF THE INJECTION AND THE PATIENT WOULD LIKE TO PROCEED. THE PATIENT WOULD LIKE TO MOVE FORWARD WITH IV SEDATION DUE TO DISCOMFORT, PAIN AND ANXIETY ASSOCIATED WITH THE PROCEDURE. THE PATIENT HAS TRIED OTHER INTERVENTIONS IN THE PAST TO ADDRESS THE MAIN AXIAL PAIN, BUT WE ALSO NEED TO ADDRESS THE RADICULAR PAIN. THE PATIENT WILL FOLLOW UP FOR A PRE-OPERATION EVALUATION IN THE NEXT FEW WEEKS. INSTRUCTIONS WERE GIVEN, QUESTIONS WERE ANSWERED, PATIENT REPORTS UNDERSTANDING AND AGREES WITH THE PLAN. I, ARTURO MIRZA, DOCUMENTED THE ABOVE INFORMATION ACTING A SCRIBE FOR DR. RIOS. I HAVE REVIEWED THE ABOVE DOCUMENT, WRITTEN BY ARTURO WYNN AND I VERIFY THAT IT IS ACCURATE. . PROCEDURE CODES FA211 ESTABILISHED PATIENT [facility] CHARGE [id number] CURRENT MEDS W/DOSAGES DOCUMENTED [id number] PAIN ASSESS POS TOOL F/U PLAN DOC DISPOSITION & COMMUNICATION FOLLOW UP 3 WEEKS ELECTRONICALLY SIGNED BY HILTON RIOS MD, MD ON 04/11/2019 AT 08:01 PM EDT DISCLAIMER : THIS IS A VISIT SUMMARY EXTRACTED FROM THE [employer] CHART. IT IS NOT A COPY OF THE [employer] PROGRESS NOTE. BELINDA
== END ==
LOC: M PAIN 14:45
PROVIDERS: ATTEND Anesthesiology
DX: M51.16 Intervertebral disc disorders with radiculopathy, lumbar region (principal); G89.29 Other chronic pain; Z79.899 Other long term (current) drug therapy; Z88.0 Allergy status to penicillin; Z88.2 Allergy status to sulfonamides; Z88.7 Allergy status to serum and vaccine

== ENCOUNTER → 2019-05-20 | Outpatient (CLI) | payer OTHER ==
[~2019-05-20] MED LIST changes: +ISOVUE-M 300 61% 15ML VIAL (Q9967) As Ordered ONE; +LIDOCAINE 1% SDV INJ 30 ML VIAL As Ordered ONE; +MIDAZOLAM INJ 2 MG/2 ML VIAL (J2250) As Ordered ONE; +fentaNYL 100 MCG/2 ML INJECTION (J3010) As Ordered ONE; +methylPREDNISolone SUSP 40 MG/ML (DEPO-medrol) VIAL (J1030) As Ordered ONE
--- NOTE | 2019-05-20 16:27 | REP ---
Partial lumbar spine series: Two views . History: Injection procedure for pain. Five seconds of fluoroscopy time is reported. Findings: A sequence of two fluoroscopically obtained last image hold procedural spot radiographs of the lumbar spine document needle position and contrast injection associated with injection procedure. Electronically Signed by Devonte Lenz MD 05/20/2019 04:18 P
--- NOTE | 2019-05-27 00:50 | ECWPNPC ---
PATIENT NAME: MIRZA CHIN : 1965 GENDER: FEMALE VISIT DATE: 05/20/2019 DISCHARGE DATE: 05/20/19 1459 VISIT LOCKED DATE TIME: PHYSICIAN: HILTON RIOS MD RESOURCE: HILTON RIOS MD REASON FOR APPOINTMENT 1. LESI WITH IV SEDATION HISTORY OF PRESENT ILLNESS HISTORY OF PRESENT ILLNESS: PAIN THE PATIENT DESCRIBES THE PAIN... FALL RISK SCREENING: SCREENING :NO FALLS REPORTED IN THE LAST YEAR CURRENT MEDICATIONS TAKING VITAMINS - (DIS) TABLET ORALLY , NOTES: 05/19/19 AM TAKING CETIRIZINE HCL 10 MG TABLET 1 TABLET ORALLY ONCE A DAY, NOTES: 05/19/19 AM TAKING VITAMIN D (ERGOCALCIFEROL) 2000 UNIT CAPSULE ORALLY , NOTES: 05/19/19 AM TAKING TYLENOL 1 TAB ORALLY 2-3X/WEEK X 4 WEEKS, NOTES: NONE RECENTLY TAKING DICLO GEL 1 % KIT TRANSDERMAL BID, NOTES: 05/19/19 TAKING VITAMIN C 1000 MG TABLET 1 TABLET ORALLY ONCE A DAY, NOTES: 05/19/19 AM TAKING OMEPRAZOLE 20 MG CAPSULE DELAYED RELEASE 1 CAPSULE ORALLY ONCE A DAY, NOTES: 05/19/19 AM TAKING SUPER B COMPLEX , NOTES: 05/19/19 AM TAKING DICLOFENAC SODIUM 75 MG TABLET DELAYED RELEASE 1 TABLET WITH FOOD OR MILK ORALLY TWICE A DAY, NOTES: 05/19/19 PM TAKING BACLOFEN 10 MG TABLET 1 TABLET WITH FOOD OR MILK ORALLY THREE TIMES A DAY, NOTES: 05/18/19 NOT-TAKING CELEBREX 200 MG CAPSULE 1 CAPSULE WITH FOOD ORALLY ONCE A DAY, NOTES: 03/03/19 0700 NOT-TAKING BENZONATATE 200 MG CAPSULE 1 CAPSULE ORALLY THREE TIMES A DAY NEEDED FOR COUGH NOT-TAKING MOXIFLOXACIN HCL 0.5 % SOLUTION 1 GTT OU OPHTHALMIC THREE TIMES A DAY NOT-TAKING DOXYCYCLINE HYCLATE 100 MG CAPSULE 1 CAPSULE ORALLY EVERY 12 HRS NOT-TAKING NETI POT SINUS WASH 2300-700 MG KIT DIRECTED NASALLY BID NOT-TAKING FLONASE 50 MCG/ACT SUSPENSION 1 SPRAY IN EACH NOSTRIL NASALLY TWICE A DAY NOT-TAKING MUCINEX DM 30-600 MG TABLET EXTENDED RELEASE 12 HOUR 1 TABLET NEEDED ORALLY EVERY 12 HRS NOT-TAKING SUDAFED 12 HOUR 120 MG TABLET EXTENDED RELEASE 12 HOUR 1 TABLET NEEDED ORALLY EVERY 12 HRS NOT-TAKING MAY USE MEDICATION LIST REVIEWED AND RECONCILED WITH THE PATIENT PAST MEDICAL HISTORY 02/2017 HYSTERECTOMY, PROLAPSE REPAIR, URETHRAL SLING 2007 CRUMP FRACTURE L FOOT NECK AND BACK PAIN ALLERGIES PENICILLIN (FOR ALLERGIES USE ONLY): HIVES - ALLERGY SULFA (FOR ALLERGY USE ONLY): HIVES - ALLERGY INFLUENZA VIRUS VACCINE SPLIT - ONSET DATE 04/29/2019 SURGICAL HISTORY BUNIONECTOMY LEFT FOOT 12/06 TONSILLECTOMY-ADNOIDS 2000 BUINIONECTOMY RIGHT FOOT 09/2011 HAMMERTOE SX RIGHT FOOT CORRECTION LEFT FOOT SURGERY 03/2013 FUSION LEFT FOOT 03/2015 HARDWARE REMOVAL 11/2016 HYSTER, PROLAPSE REPAIR, URETHRAL SLING 02/2017 EMERGENCY SURGERY FOR ABDOMINAL INFECTION - FROM HYSTERECTOMY 03/2017 BIOPSY LEFT UPPER LIP 04/24/18 FAMILY HISTORY FATHER: 64 YRS MOTHER: 83 YRS, DIAGNOSED WITH HEART DISEASE, HYPERTENSION 5 BROTHER(S) , 4 SISTER(S) . 2 SON(S) , 1 DAUGHTER(S) - HEALTHY. FATHER - OF LUNG DISEASE\\\\\\\\NBROTHER - HEART ISSUES\\\\\\\\NBROTHER HAD PROSTATE CANCER\\\\\\\\N. SOCIAL HISTORY GENERAL: TOBACCO USE ARE YOU A:NONSMOKER IMMUNIZATION PROGRAM SPOUSE. OTHERS AT HOME: SPOUSE. HOUSING: RENTS APARTMENT. DIET: REGULAR. LANGUAGE LANGUAGES SPOKEN:LUXEMBOURGER NEW PATIENT PAIN DIARY PATIENT DESCRIBES PAIN :ACHING, HAVE IT ALL THE TIME, SHARP, STABBING, SORE, OTHER FROM 0-10, WHAT LEVEL IS YOUR PAIN TODAY?5 PRECIPITATING FACTORS PROLONGED STANDING OR SITTING, LIFTING, NO EXERCISE MAKE IT MUCH WORSE ALLEVIATING FACTORS SWIMMING IMPACT ON FUNCTION CAN'T STAY IN ONE PLACE FOR LONG PERIODS OF TIME NAME OF PERSON DRIVING YOU HOME SELF IS THERE A CHANCE YOU COULD BE ? NO HAVE YOU BEEN SICK IN THE LAST WEEK (COLD, COUGH, FEVER, FLU, ETC) NO DO YOU TAKE ANY BLOOD THINNERS? NO DO YOU HAVE ANY RASHES OR OPEN SORES? NO ANY CHANGE IN BOWEL OR BLADDER CONTROL? NO ARE YOU ALLERGIC TO SHELLFISH OR IV DYE? NO ARE YOU DIABETIC? NO DO YOU HAVE A PACEMAKER OR DEFIBRILLATOR? NO ANY NEW PROBLEMS WITH MEDICINES OR NEW ALLERGIES NO ANY NEW PATTERNS OF PAIN OR NUMBNESS? PAIN HAS INCREASED DUE TO INABILITY TO SWIM ANY CHANGE IN YOUR MEDICAL CONDITION? NO HAVE YOU FALLEN IN THE LAST 6 MONTHS? NO DO YOU USE ANY TYPE OF TOBACCO (SMOKE, SMOKELESS, CHEW, ETC.) NO ARE YOU ABUSED, NEGLECTED, OR IN AN UNSAFE ENVIRONMENT? NO DO YOU HAVE THOUGHTS OF HURTING YOURSELF OR SOMEONE ELSE? NO DO YOU NEED ANY PRESCRIPTIONS? NO DO YOU HAVE ANY OTHER QUESTIONS OR CONCERNS? NO, PT HAS BONE BIOPSY SCHEDULED FOR FOOT, TO MAKE SURE THERE ISN'T ANY INFECTION INTENSITY SCALE REVIEWED YES RECREATIONAL DRUG USE DRUG USE?NO EXERCISE: NO REGULAR EXERCISE. LEARNING BARRIERS / SPECIAL NEEDS BARRIERS TO LEARNING?NO HEARING IMPAIRED?NO VISION IMPAIRED?YES :CORRECTIVE LENSES COGNITIVELY IMPAIRED?NO READINESS TO LEARN?YES LEARNING PREFERENCES?NO LEARNING CAPABILITIES PRESENT?YES EMOTIONAL BARRIERS?NO SPECIAL DEVICES?NO SEPTIC TECHNICIAN NEEDED?NO PAIN CLINIC PFS, CLERGY, PUBLIC HEALTH REFERRALS PUBLIC HEALTH REFERRAL NEEDED?NO WAS THE PROVIDER NOTIFIED OF ANY PERTINENT INFO?YES HAS THE PATIENT BEEN EDUCATED REGARDING HIS/HER PLAN OF CARE?YES HAS THE PATIENT BEEN EDUCATED REGARDING PAIN, THE RISK FOR PAIN, THE IMPORTANCE OF EFFECTIVE PAIN MANAGEMENT, AND THE PAIN ASSESSMENT PROCESS?YES LATEX QUESTIONNAIRE LATEX ALLERGY : HAVE YOU EVER DEVELOPED ANY TYPE OF REACTION AFTER HANDLING LATEX PRODUCTS SUCH RUBBER GLOVES, CONDOMS, DIAPHRAGMS, BALLOONS, SOCKS, OR UNDERWEAR?NO LATEX ALLERGY : HAVE YOU EVER DEVELOPED ANY TYPE OF REACTION DURING OR AFTER DENTAL APPOINTMENT, VAGINAL/RECTAL EXAMINATION, SURGICAL PROCEDURE, OR ANY OTHER EXPOSURE?NO LATEX RISK : HAVE YOU EVER HAD ANY DIFFICULTY BREATHING OR HIVES AFTER EATING OR HANDLING ANY FRUITS, OR VEGETABLES; SUCH KIWI, BANANAS, STONE FRUITS, OR CHESTNUTSNO LATEX RISK : DO YOU HAVE A PREVIOUS PERSONAL HISTORY OF MORE THAN NINE SURGERIES, SPINA BIFIDA, OR REPEATED CATHERTIZATIONS? YES - PLEASE INDICATE : > 9 SURGERIES LATEX RISK : ARE YOU FREQUENTLY EXPOSED TO LATEX PRODUCTS IN YOUR OCCUPATION?YES DATE ASKED : 03/04/2019 CAFFEINE CAFFEINE USE?YES HOW OFTEN AND HOW MUCH? 1-3 CUPS PER DAY ADVANCE DIRECTIVE ADVANCE DIRECTIVE DISCUSSED WITH PATIENT:YES OSVALDO CHIN- BUDDHISM [id number] MOSQUE MARITAL STATUS: . ALCOHOL SCREENING DID YOU HAVE A DRINK CONTAINING ALCOHOL IN THE PAST YEAR?NO POINTS0 INTERPRETATIONNEGATIVE OCCUPATION: COSMOTOLGIST. REVIEWED WITH PT 07/13/18 1341 LASREVIEWED WITH PT 08/27/18 1030 LASREVIEWED WITH PT 09/15/18 1037 BVREVIEWED WITH PATIENT 11/09/18 1140 JSREVIEWED WITH PATIENT 12/22/18 1121 JSREVIEWED WITH PT 05/20/19 1336 BVREVIEWED WITH PATIENT 03/25/19 1515 LASREVIEWED WITH PATIENT 03/04/19 1003 LASREVIEWED WITH PATIENT 04/29/19 1516 JS. HOSPITALIZATION/MAJOR DIAGNOSTIC PROCEDURE ABDOMINAL INFECTION FROM HYSTERECTOMY SURGERY - 10 DAYS IN ICU 03/2017 REVIEW OF SYSTEMS REVIEWED BY: PROVIDER: . CONSTITUTIONAL: ANY CHANGE IN YOUR MEDICAL CONDITION? NO, PT HAD NERVE CONDUCTION STUDY DONE YESTERDAY . CHILLS NO . FEVER NO . INFECTION: DO YOU HAVE NEW INFECTIONS? NO . DO YOU HAVE HISTORY OF MRSA? NO . MUSCULOSKELETAL: ANY NEW PATTERNS OF PAIN OR NUMBNESS? YES, INCREASE IN RIGHT NECK/RIGHT SHOULDER PAIN . GASTROENTEROLOGY: ANY NEW CHANGE IN BOWEL CONTROL? NO . GENITOURINARY: ANY NEW CHANGE IN BLADDER CONTROL? NO . IS THERE A CHANCE YOU COULD BE ? NO . HEMATOLOGY/LYMPH: DO YOU TAKE ANY BLOOD THINNERS? (FOR EXAMPLE- COUMADIN, PLAVIX, AGGRENOX, PLATEL, PRADAXA, OR XARELTO) NO . WHEN WAS YOUR LAST DOSE? DATE: TIME: . NEUROLOGY: HAVE YOU FALLEN IN THE PAST 12 MONTHS? NO . ANY NEW EXTREMITY NUMBNESS OR WEAKNESS? NO . CARDIOLOGY: DO YOU HAVE A PACEMAKER OR DEFIBRILLATOR? NO . RESPIRATORY: HAVE YOU BEEN SICK IN THE PAST WEEK? NO . FEVER NO . FLU LIKE SYMPTOMS? NO . COUGH NO . INTEGUMENTARY: DO YOU HAVE ANY RASHES OR OPEN SORES? NO . ALLERGIC/IMMUNO: ARE YOU ALLERGIC TO IV DYE? NO . ANY NEW ALLERGIES? NO . PSYCHIATRIC: DO YOU HAVE THOUGHTS OF HURTING YOURSELF OR SOMEONE ELSE? NO . ARE YOU ABUSED, NEGLECTED, OR IN AN UNSAFE ENVIRONMENT? NO . ENDOCRINOLOGY: ARE YOU DIABETIC? NO . OTHER: DO YOU NEED ANY PRESCRIPTIONS? NO . IF YES, PLEASE LIST: ____ . ANY NEW PROBLEMS WITH YOUR MEDICATIONS? NO . WHEN DID YOU LAST EAT? YES 05/20/19 0630 . WHEN DID YOU LAST DRINK? 05/20/19 1030 . WHAT DID YOU LAST DRINK? WATER . NAME OF PERSON DRIVING YOU HOME? ____ . DO YOU HAVE ANY OTHER QUESTIONS OR CONCERNS NO . VITAL SIGNS WT 144.8 LBS, HT 62", BMI 26.48 INDEX, BP 105/61 MM HG, HR 73 /MIN, RR 18 /MIN, TEMP 97.0 F, OXYGEN SAT % 99%, NA INITIALS AW 1316, REVIEWED BY: BV. ASSESSMENTS INTERVERTEBRAL DISC DISORDER WITH RADICULOPATHY OF LUMBAR REGION - M51.16 (PRIMARY) TREATMENT INTERVERTEBRAL DISC DISORDER WITH RADICULOPATHY OF LUMBAR REGION [facility] FLUORO GUIDE SPINE INJECTION (PAIN)[id number] PROCEDURES PRE PROCEDURE DIAGNOSIS LUMBAR DISC DISORDER WITH RADICULOPATHY POST PROCEDURE DIAGNOSIS LUMBAR DISC DISORDER WITH RADICULOPATHY PROCEDURE LUMBAR EPIDURAL STEROID INJECTION UNDER FLUOROSCOPIC GUIDANCE SURGEON DR. HILTON RIOS ROOM WORKER NONE ANESTHESIA LOCAL WITH IV SEDATION PRE PROCEDURE NOTE THE PATIENT HAS A HISTORY OF CHRONIC LOW BACK PAIN. I EVALUATED THE PATIENT AND REVIEWED THE CHART. I WENT OVER THE RISKS, ALTERNATIVES, AND BENEFITS ASSOCIATED WITH THIS PROCEDURE. THE PATIENT WOULD LIKE TO PROCEED AND GIVE CONSENT TO PERFORMED THE PROCEDURE. THE PATIENT WOULD LIKE TO MOVE FORWARD WITH IV SEDATION DUE TO DISCOMFORT, PAIN, AND ANXIETY ASSOCIATED WITH THE PROCEDURE. THE PATIENT DENIES UNEXPLAINABLE WEIGHT LOSS, FEVER, CHILLS, OR NEW CHANGES IN URINARY OR BOWEL CONTROL. DESCRIPTION OF PROCEDURE THE PATIENT WAS BROUGHT TO THE PROCEDURE ROOM AND PLACED IN THE PRONE POSITION. THE LUMBOSACRAL AREA WAS CLEANED WITH BETADINE SOLUTION AND DRAPED ASEPTICALLY. THE PROCEDURE WAS DONE UNDER STERILE CONDITIONS. I CHECKED LATERALITY AND THE LEVEL WHERE THE PROCEDURE WAS GOING TO BE PERFORMED WITH THE PATIENT AND THE SUPPORTING STAFF AT THE MOMENT OF THE TIME OUT IN THE PROCEDURE ROOM. UNDER FLUOROSCOPIC GUIDANCE, THE TARGET POINT WAS SELECTED AT THE INTERLAMINAR LEVEL OF L4-L5. LIDOCAINE WAS USED TO NUMB THE SKIN AND THE SUBCUTANEOUS TISSUE BELOW IT. EPIDURAL TUOHY NEEDLE, 17-GAUGE, WAS ADVANCED UNDER FLUOROSCOPIC GUIDANCE AND FOLLOWING PATIENT FEEDBACK UNTIL THE EPIDURAL SPACE WAS REACHED, 7 CM DEEP INTO THE SKIN BY THE LOSS OF RESISTANCE TECHNIQUE. ISOVUE M DYE 30%, 0.25 ML, WAS INJECTED SHOWING ADEQUATE SPREAD OF THE DYE. THEN, A SOLUTION OF 3 ML OF NORMAL SALINE WITH DEPO-MEDROL 60 MG WAS INJECTED SLOWLY FOLLOWING PATIENT FEEDBACK. THERE WAS NO EVIDENCE OF BLOOD, PARESTHESIA OR CEREBROSPINAL FLUID DURING THE PROCEDURE. THE PATIENT WAS SENT TO THE RECOVERY ROOM. THE PATIENT WAS MOVING THE EXTREMITIES AND DOING WELL. THERE WAS NO COMPLICATION DURING THE PROCEDURE. FLUOROSCOPY TIME WAS 5 SECONDS. PATIENT RECEIVED VERSED 3 MG AND FENTANYL 150 MCG IV DIVIDED DOSES. FACE TO FACE TIME WAS 12 MINUTES. POST PROCEDURE NOTE THE PATIENT WILL BE SEEN IN A FOLLOW UP IN THE NEXT FEW WEEKS. INSTRUCTIONS WERE GIVEN, QUESTIONS WERE ANSWERED, AND THE PATIENT EXPRESSED UNDERSTANDING AND AGREES WITH THE PLAN. I, ARTURO MIRZA, DOCUMENTED THE ABOVE INFORMATION ACTING A SCRIBE FOR DR. RIOS. I HAVE REVIEWED THE ABOVE DOCUMENT, WRITTEN BY ARTURO MIRZA SCRIBE AND I VERIFY THAT IT IS ACCURATE. PROCEDURE CODES 56990 LUMBAR/SACRAL W/ IMAGING 6045F RADXPS IN END [id number] PXD [id number] MOD SED SAME PHYS/QHP 5/>YRS DISPOSITION & COMMUNICATION FOLLOW UP 2 WEEKS ELECTRONICALLY SIGNED BY HILTON RIOS MD, MD ON 05/26/2019 AT 01:25 PM EDT DISCLAIMER : THIS IS A VISIT SUMMARY EXTRACTED FROM THE [employer] CHART. IT IS NOT A COPY OF THE [employer] PROGRESS NOTE. MTDD
== END ==
LOC: M PAIN 13:15
PROVIDERS: ATTEND Anesthesiology
DX: M51.16 Intervertebral disc disorders with radiculopathy, lumbar region (principal); Z79.899 Other long term (current) drug therapy; Z88.0 Allergy status to penicillin; Z88.2 Allergy status to sulfonamides; Z88.7 Allergy status to serum and vaccine
CPT/HCPCS: 62323; 99152; J1030; J2250; J3010; Q9967

== ENCOUNTER → 2019-06-04 | Outpatient (REF) | payer OTHER ==
[~2019-06-04] MED LIST changes: +CIPR-249 PO; -ISOVUE-M 300 61% 15ML VIAL (Q9967) As Ordered ONE; -LIDOCAINE 1% SDV INJ 30 ML VIAL As Ordered ONE; -MIDAZOLAM INJ 2 MG/2 ML VIAL (J2250) As Ordered ONE; -fentaNYL 100 MCG/2 ML INJECTION (J3010) As Ordered ONE; -methylPREDNISolone SUSP 40 MG/ML (DEPO-medrol) VIAL (J1030) As Ordered ONE
[2019-06-04 13:33] LABS: BASO % 0.7 % (0.0-1.0); EOS # 0.2 10^3/uL (0.0-0.50); EOS % 3.9 % (0.0-3.0); HEMATOCRIT 40.2 % (36.0-47.0); HEMOGLOBIN 13.3 g/dl (12.0-15.5); LYMPH # 1.3 10^3/uL (1.5-4.5); LYMPH % 27.7 % (24.0-44.0); MEAN CORPUSCULAR HEMOGLOBIN 32.3 pg (27.0-33.0); MEAN CORPUSCULAR HGB CONC 33.1 g/dl (32.0-36.5); MEAN CORPUSCULAR VOLUME 97.6 fl (80.0-96.0); MONO # 0.6 10^3/uL (0.0-0.8); MONO % 13.3 % (0.0-5.0); NEUTROPHILS # 2.5 10^3/uL (1.8-7.7); PLATELET COUNT, AUTOMATED 237 10^3/uL (150-450); RED BLOOD COUNT 4.12 10^6/uL (4.00-5.40); WHITE BLOOD COUNT 4.6 10^3/uL (4.0-10.0)
[2019-06-04 13:42] LABS: ALBUMIN 4.1 GM/DL (3.2-5.2); ALT/SGPT 90 U/L (12-78); BILIRUBIN,TOTAL 0.7 MG/DL (0.2-1.0); BLOOD UREA NITROGEN 18 MG/DL (7-18); CALCIUM LEVEL 9.5 MG/DL (8.5-10.1); CARBON DIOXIDE LEVEL 32 MEQ/L (21-32); CHLORIDE LEVEL 109 MEQ/L (98-107); CREATININE FOR GFR 1.07 MG/DL (0.55-1.30); GLOMERULAR FILTRATION RATE 57.3 (>51); GLUCOSE, FASTING 68 MG/DL (70-100); POTASSIUM SERUM 4.7 MEQ/L (3.5-5.1); RHEUMATOID FACTOR QUANT < 10.0 IU/ML (<15.0); SODIUM LEVEL 142 MEQ/L (136-145); TOTAL PROTEIN 7.2 GM/DL (6.4-8.2); URIC ACID 4.9 MG/DL (2.6-6.0)
[2019-06-04 13:50] LABS: FOLATE > 24.0 NG/ML; VITAMIN B12 LEVEL 578 PG/ML
[2019-06-04 14:00] LABS: ERYTHROCYTE SEDIMENTATION RATE 27 mm/hr (0-30)
[2019-06-10 00:09] LABS: ANTINUCLEAR ANTIBODIES DIRECT Negative (Negative); HLA-B27 Negative (.); Lyme Disease IgG/IgM Antibodie <0.91 ISR (0.00-0.90); Lyme Disease IgM Ab Quantitati <0.80 index (0.00-0.79)
== END ==
LOC: M LABDRAW1 11:05
PROVIDERS: ATTEND Physician Assistant Surgical
DX: M53.3 Sacrococcygeal disorders, not elsewhere classified (principal)

== ENCOUNTER → 2019-06-06 | Outpatient (REF) | payer OTHER ==
[2019-06-06 14:05] LABS: MAGNESIUM, URINE 4.9 MG/DL
[2019-06-06 14:07] LABS: URINE MAGNESIUM 24HR 156.8 MG/24HR (24-255)
== END ==
LOC: M LAB REF 09:00
PROVIDERS: ATTEND Physician Assistant Surgical
DX: M53.3 Sacrococcygeal disorders, not elsewhere classified (principal)

== ENCOUNTER 2019-06-08 15:13 | Emergency (ER) | payer OTHER ==
[~2019-06-08] VITALS: Ht 157.5 cm; Wt 65.5 kg
[~2019-06-08 15:13] MED LIST changes: -CIPR-249 PO
[2019-06-08] MEDS ORDERED: KETOROLAC 30 MG/ML VIAL (J1885) IV ONE (15:30)
[2019-06-08] MEDS ORDERED: NS 1,000 ML IV SCH (15:31)
[2019-06-08 15:50] LABS: BASO % 0.3 % (0.0-1.0); EOS # 0.1 10^3/uL (0.0-0.50); EOS % 1.2 % (0.0-3.0); HEMATOCRIT 37.2 % (36.0-47.0); HEMOGLOBIN 12.9 g/dl (12.0-15.5); LYMPH % 14.2 % (24.0-44.0); MEAN CORPUSCULAR HEMOGLOBIN 32.1 pg (27.0-33.0); MEAN CORPUSCULAR HGB CONC 34.7 g/dl (32.0-36.5); MEAN CORPUSCULAR VOLUME 92.5 fl (80.0-96.0); MONO # 0.9 10^3/uL (0.0-0.8); NEUTROPHILS # 5.2 10^3/uL (1.8-7.7); NEUTROPHILS % 71.9 % (36.0-66.0); PLATELET COUNT, AUTOMATED 217 10^3/uL (150-450); RED BLOOD COUNT 4.02 10^6/uL (4.00-5.40); WHITE BLOOD COUNT 7.3 10^3/uL (4.0-10.0)
[2019-06-08 16:13] LABS: ALBUMIN 3.7 GM/DL (3.2-5.2); ALT/SGPT 243 U/L (12-78); BILIRUBIN,DIRECT 0.2 MG/DL (0.0-0.2); BILIRUBIN,TOTAL 0.8 MG/DL (0.2-1.0); BLOOD UREA NITROGEN 19 MG/DL (7-18); CALCIUM LEVEL 9.4 MG/DL (8.5-10.1); CARBON DIOXIDE LEVEL 22 MEQ/L (21-32); CHLORIDE LEVEL 108 MEQ/L (98-107); CREATININE FOR GFR 1.34 MG/DL (0.55-1.30); GLOMERULAR FILTRATION RATE 44.2 (>51); GLUCOSE, FASTING 85 MG/DL (70-100); LIPASE 152 U/L (73-393); POTASSIUM SERUM 3.4 MEQ/L (3.5-5.1); SODIUM LEVEL 143 MEQ/L (136-145)
--- NOTE | 2019-06-08 16:23 | REP ---
CT of the abdomen and pelvis without IV and oral contrast for right flank pain: Comparison is 04/14/2017. The visualized lung stein are unremarkable except for curvilinear scar in the lower lobe of the left lung, unchanged. The unenhanced hepatic parenchyma, gallbladder, pancreas and spleen are unremarkable. The adrenals are unremarkable. There are no renal or ureteral calculi. There is mild dilatation of the right renal pelvis and right ureter, possibly from a recently passed calculus. There is no bladder calculus. There is no perinephric stranding. The abdominal aorta is unremarkable. The bowel and mesentery are unremarkable. Pelvis: There is a hysterectomy. Vaginal cuff and adnexa are unremarkable. The bladder is unremarkable. There is no adenopathy or ascites. The pelvic bowel loops are unremarkable. Impression: There are no renal or ureteral calculi on the right on the left. However, there is mild distension of the right renal pelvis and right ureter, possibly from a recently passed calculus. Otherwise, essentially negative CT study of the abdomen and pelvis. The patient has a hysterectomy. Electronically Signed by Black Arredondo MD 06/08/2019 04:15 P
[2019-06-08] MEDS ORDERED: CIPR-249 PO (17:54)
[2019-06-08] MEDS ORDERED: cefTRIAXone SOD 2 GM in D5W MINI-BAG PLUS 50 ML IV ONE (18:00)
[2019-06-08 18:08] VITALS: BP 95/54
[2019-06-09 11:09] LABS: HEPATITIS B SURFACE ANTIGEN NEGATIVE (NEGATIVE)
[2019-06-09 11:36] LABS: HEPATITIS B CORE ANTIBODY IGM NEGATIVE (NEGATIVE); HEPATITIS C VIRUS ABY INDEX 0.1 INDEX (<0.8)
[2019-06-09 11:39] LABS: HEPATITIS A ANTIBODY IGM NEGATIVE (NEGATIVE)
== END 2019-06-08 19:33 | disposition home or self-care (01) ==
LOC: EDBD 15:13 → M ED 15:13
DX: N20.1 Calculus of ureter (principal); N39.0 Urinary tract infection, site not specified; B96.20 Unspecified Escherichia coli [E. coli] as the cause of diseases classified elsewhere; M51.86 Other intervertebral disc disorders, lumbar region; Z88.0 Allergy status to penicillin; Z88.2 Allergy status to sulfonamides; Z79.899 Other long term (current) drug therapy; Z88.7 Allergy status to serum and vaccine
CPT/HCPCS: 74176; 80048; 80076; 81001; 83690; 85025; 86705; 86709; 86803; 87088; 87186; 87340; 96361; 96374; 96375; 99284; J0696; J1885

== ENCOUNTER 2019-07-22 10:37 | Emergency (ER) | payer OTHER ==
[~2019-07-22] VITALS: Ht 157.5 cm; Wt 65.0 kg
[~2019-07-22 10:37] MED LIST changes: +CIPR-249 PO
[2019-07-22] MEDS ORDERED: TRAM50TA2 PO (11:20)
[2019-07-22] MEDS ORDERED: DICL50TA2 PO (11:20)
[2019-07-22] MEDS ORDERED: MORPHINE 10 MG/ML 1ML VIAL (J2270) IM ONE (12:00)
[2019-07-22 12:17] LABS: BASO % 0.4 % (0.0-1.0); EOS # 0.2 10^3/uL (0.0-0.50); EOS % 2.1 % (0.0-3.0); HEMATOCRIT 33.8 % (36.0-47.0); HEMOGLOBIN 11.6 g/dl (12.0-15.5); LYMPH # 1.1 10^3/uL (1.5-4.5); LYMPH % 14.9 % (24.0-44.0); MEAN CORPUSCULAR HEMOGLOBIN 31.9 pg (27.0-33.0); MEAN CORPUSCULAR HGB CONC 34.3 g/dl (32.0-36.5); MEAN CORPUSCULAR VOLUME 92.9 fl (80.0-96.0); MONO # 0.7 10^3/uL (0.0-0.8); MONO % 9.5 % (0.0-5.0); NEUTROPHILS # 5.3 10^3/uL (1.8-7.7); NEUTROPHILS % 72.8 % (36.0-66.0); PLATELET COUNT, AUTOMATED 230 10^3/uL (150-450); RED BLOOD COUNT 3.64 10^6/uL (4.00-5.40); WHITE BLOOD COUNT 7.2 10^3/uL (4.0-10.0)
[2019-07-22 12:37] LABS: BLOOD UREA NITROGEN 15 MG/DL (7-18); CALCIUM LEVEL 9.6 MG/DL (8.5-10.1); CARBON DIOXIDE LEVEL 30 MEQ/L (21-32); CHLORIDE LEVEL 108 MEQ/L (98-107); CREATININE FOR GFR 0.86 MG/DL (0.55-1.30); GLOMERULAR FILTRATION RATE > 60.0 (>51); GLUCOSE, FASTING 94 MG/DL (70-100); POTASSIUM SERUM 3.5 MEQ/L (3.5-5.1); SODIUM LEVEL 142 MEQ/L (136-145)
--- NOTE | 2019-07-22 13:15 | REP ---
Left great toe four views: There are no comparison studies. There is marked joint space narrowing of the great toe MTP articulation with virtually no remaining articular cartilage. The cortical surfaces of the joint are irregular. There are periarticular calcifications. I suspect these are all degenerative changes. There are no lytic, blastic or destructive skeletal changes to suggest osteomyelitis. There is surgical fusion of the great toe T T articulation. On the lateral view there is also a surgical screw in the base and shaft of the fifth digit metacarpal. 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 Surgical fusion of the great toe T T articulation. No lytic, blastic or destructive changes are identified to suggest osteomyelitis. Electronically Signed by Black Arredondo MD 07/22/2019 01:07 P
[2019-07-22 14:02] VITALS: BP 107/66
[2019-07-22] MEDS ORDERED: PERC5TAB12 PO ×2 (14:07→14:11)
[2019-08-02] MEDS ORDERED: B-12100T2 PO (07:51)
[2019-08-02] MEDS ORDERED: D 1010004 PO (07:51)
[2019-08-02] MEDS ORDERED: CETI10CH PO (07:51)
[2019-08-02] MEDS ORDERED: OMEP-218 PO (07:57)
[2019-08-02] MEDS ORDERED: VIAC1CHW PO (07:57)
[2019-08-02] MEDS ORDERED: VITAMIN C GUMMY PO (07:57)
== END 2019-07-22 14:16 | disposition home or self-care (01) ==
LOC: M ED 10:37
DX: L60.0 Ingrowing nail (principal); K21.9 Gastro-esophageal reflux disease without esophagitis; Z79.51 Long term (current) use of inhaled steroids; Z79.899 Other long term (current) drug therapy; Z88.0 Allergy status to penicillin; Z88.2 Allergy status to sulfonamides; Z88.7 Allergy status to serum and vaccine; Z90.710 Acquired absence of both cervix and uterus
CPT/HCPCS: 73660; 80048; 85025; 96372; 99283; J2270

== ENCOUNTER → 2019-08-16 | Outpatient (CLI) | payer OTHER ==
[~2019-08-16] MED LIST changes: +B-12100T2 PO; +CETI10CH PO; +D 1010004 PO; +DICL50TA2 PO; +OMEP-218 PO; +PERC5TAB12 PO; +VIAC1CHW PO; +VITAMIN C GUMMY PO
--- NOTE | 2019-08-18 01:53 | ECWPNPC ---
PATIENT NAME: MIRZA CHIN : 1965 GENDER: FEMALE VISIT DATE: 08/16/2019 DISCHARGE DATE: 08/16/19 1056 VISIT LOCKED DATE TIME: PHYSICIAN: RICKI COSTELLO RESOURCE: RICKI COSTELLO REASON FOR APPOINTMENT 1. POST PROC HISTORY OF PRESENT ILLNESS HISTORY OF PRESENT ILLNESS: PAIN THE PATIENT DESCRIBES THE PAIN... 54-YEAR-OLD FEMALE IN FOR POST LESI FOLLOW-UP. SHE FELT THE PROCEDURE WORKED REALLY WELL SHE RATED HER PAIN PREPROCEDURE AT A 5 OUT OF 10 AND POSTPROCEDURE AT A 0 OUT OF 10. SHE RATES HER PAIN CURRENTLY AT A 7 OUT OF 10 AND DESCRIBES IT ACHING, BURNING, SORE, SHARP, AND SHOOTING. FALL RISK SCREENING: SCREENING :NO FALLS REPORTED IN THE LAST YEAR CURRENT MEDICATIONS TAKING VITAMINS - (DIS) TABLET ORALLY TAKING CETIRIZINE HCL 10 MG TABLET 1 TABLET ORALLY ONCE A DAY TAKING VITAMIN D (ERGOCALCIFEROL) 2000 UNIT CAPSULE ORALLY TAKING TYLENOL 1 TAB ORALLY 2-3X/WEEK X 4 WEEKS TAKING DICLO GEL 1 % KIT TRANSDERMAL BID TAKING VITAMIN C 1000 MG TABLET 1 TABLET ORALLY ONCE A DAY TAKING OMEPRAZOLE 20 MG CAPSULE DELAYED RELEASE 1 CAPSULE ORALLY ONCE A DAY TAKING SUPER B COMPLEX TAKING DICLOFENAC SODIUM 75 MG TABLET DELAYED RELEASE 1 TABLET WITH FOOD OR MILK ORALLY TWICE A DAY NOT-TAKING FLONASE 50 MCG/ACT SUSPENSION 1 SPRAY IN EACH NOSTRIL NASALLY TWICE A DAY DISCONTINUED BACLOFEN 10 MG TABLET 1 TABLET WITH FOOD OR MILK ORALLY THREE TIMES A DAY DISCONTINUED CELEBREX 200 MG CAPSULE 1 CAPSULE WITH FOOD ORALLY ONCE A DAY DISCONTINUED BENZONATATE 200 MG CAPSULE 1 CAPSULE ORALLY THREE TIMES A DAY NEEDED FOR COUGH DISCONTINUED MOXIFLOXACIN HCL 0.5 % SOLUTION 1 GTT OU OPHTHALMIC THREE TIMES A DAY DISCONTINUED DOXYCYCLINE HYCLATE 100 MG CAPSULE 1 CAPSULE ORALLY EVERY 12 HRS DISCONTINUED NETI POT SINUS WASH 2300-700 MG KIT DIRECTED NASALLY BID DISCONTINUED MUCINEX DM 30-600 MG TABLET EXTENDED RELEASE 12 HOUR 1 TABLET NEEDED ORALLY EVERY 12 HRS DISCONTINUED SUDAFED 12 HOUR 120 MG TABLET EXTENDED RELEASE 12 HOUR 1 TABLET NEEDED ORALLY EVERY 12 HRS DISCONTINUED MAY USE MEDICATION LIST REVIEWED AND RECONCILED WITH THE PATIENT PAST MEDICAL HISTORY 02/2017 HYSTERECTOMY, PROLAPSE REPAIR, URETHRAL SLING 2007 CRUMP FRACTURE L FOOT NECK AND BACK PAIN ALLERGIES PENICILLIN (FOR ALLERGIES USE ONLY): HIVES - ALLERGY SULFA (FOR ALLERGY USE ONLY): HIVES - ALLERGY INFLUENZA VIRUS VACCINE SPLIT - ONSET DATE 04/29/2019 SURGICAL HISTORY BUNIONECTOMY LEFT FOOT 12/06 TONSILLECTOMY-ADNOIDS 2000 BUINIONECTOMY RIGHT FOOT 09/2011 HAMMERTOE SX RIGHT FOOT CORRECTION LEFT FOOT SURGERY 03/2013 FUSION LEFT FOOT 03/2015 HARDWARE REMOVAL 11/2016 HYSTER, PROLAPSE REPAIR, URETHRAL SLING 02/2017 EMERGENCY SURGERY FOR ABDOMINAL INFECTION - FROM HYSTERECTOMY 03/2017 BIOPSY LEFT UPPER LIP 04/24/18 LEFT BIG TOE NAIL REMOVED 06/2019 FAMILY HISTORY FATHER: 64 YRS MOTHER: 83 YRS, DIAGNOSED WITH HYPERTENSION, UNSPECIFIED HEART DISEASE 5 BROTHER(S) , 4 SISTER(S) . 2 SON(S) , 1 DAUGHTER(S) - HEALTHY. FATHER - OF LUNG DISEASE\\\\\\\\NBROTHER - HEART ISSUES\\\\\\\\NBROTHER HAD PROSTATE CANCER\\\\\\\\N. SOCIAL HISTORY GENERAL: TOBACCO USE ARE YOU A:NONSMOKER IMMUNIZATION PROGRAM SPOUSE. OTHERS AT HOME: SPOUSE. HOUSING: RENTS APARTMENT. DIET: REGULAR. LANGUAGE LANGUAGES SPOKEN:GEORGIAN NEW PATIENT PAIN DIARY PATIENT DESCRIBES PAIN :ACHING, HAVE IT ALL THE TIME, SHARP, STABBING, SORE, OTHER FROM 0-10, WHAT LEVEL IS YOUR PAIN TODAY?5 PRECIPITATING FACTORS PROLONGED STANDING OR SITTING, LIFTING, NO EXERCISE MAKE IT MUCH WORSE ALLEVIATING FACTORS SWIMMING IMPACT ON FUNCTION CAN'T STAY IN ONE PLACE FOR LONG PERIODS OF TIME NAME OF PERSON DRIVING YOU HOME SELF IS THERE A CHANCE YOU COULD BE ? NO HAVE YOU BEEN SICK IN THE LAST WEEK (COLD, COUGH, FEVER, FLU, ETC) NO DO YOU TAKE ANY BLOOD THINNERS? NO DO YOU HAVE ANY RASHES OR OPEN SORES? NO ANY CHANGE IN BOWEL OR BLADDER CONTROL? NO ARE YOU ALLERGIC TO SHELLFISH OR IV DYE? NO ARE YOU DIABETIC? NO DO YOU HAVE A PACEMAKER OR DEFIBRILLATOR? NO ANY NEW PROBLEMS WITH MEDICINES OR NEW ALLERGIES NO ANY NEW PATTERNS OF PAIN OR NUMBNESS? PAIN HAS INCREASED DUE TO INABILITY TO SWIM ANY CHANGE IN YOUR MEDICAL CONDITION? NO HAVE YOU FALLEN IN THE LAST 6 MONTHS? NO DO YOU USE ANY TYPE OF TOBACCO (SMOKE, SMOKELESS, CHEW, ETC.) NO ARE YOU ABUSED, NEGLECTED, OR IN AN UNSAFE ENVIRONMENT? NO DO YOU HAVE THOUGHTS OF HURTING YOURSELF OR SOMEONE ELSE? NO DO YOU NEED ANY PRESCRIPTIONS? NO DO YOU HAVE ANY OTHER QUESTIONS OR CONCERNS? NO, PT HAS BONE BIOPSY SCHEDULED FOR FOOT, TO MAKE SURE THERE ISN'T ANY INFECTION INTENSITY SCALE REVIEWED YES RECREATIONAL DRUG USE DRUG USE?NO EXERCISE: NO REGULAR EXERCISE. LEARNING BARRIERS / SPECIAL NEEDS BARRIERS TO LEARNING?NO HEARING IMPAIRED?NO VISION IMPAIRED?YES COGNITIVELY IMPAIRED?NO :CORRECTIVE LENSES READINESS TO LEARN?YES LEARNING PREFERENCES?NO LEARNING CAPABILITIES PRESENT?YES EMOTIONAL BARRIERS?NO SPECIAL DEVICES?NO PACKAGING TECHNICIAN NEEDED?NO PAIN CLINIC PFS, CLERGY, PUBLIC HEALTH REFERRALS PUBLIC HEALTH REFERRAL NEEDED?NO WAS THE PROVIDER NOTIFIED OF ANY PERTINENT INFO?YES HAS THE PATIENT BEEN EDUCATED REGARDING HIS/HER PLAN OF CARE?YES HAS THE PATIENT BEEN EDUCATED REGARDING PAIN, THE RISK FOR PAIN, THE IMPORTANCE OF EFFECTIVE PAIN MANAGEMENT, AND THE PAIN ASSESSMENT PROCESS?YES LATEX QUESTIONNAIRE LATEX ALLERGY : HAVE YOU EVER DEVELOPED ANY TYPE OF REACTION AFTER HANDLING LATEX PRODUCTS SUCH RUBBER GLOVES, CONDOMS, DIAPHRAGMS, BALLOONS, SOCKS, OR UNDERWEAR?NO LATEX ALLERGY : HAVE YOU EVER DEVELOPED ANY TYPE OF REACTION DURING OR AFTER DENTAL APPOINTMENT, VAGINAL/RECTAL EXAMINATION, SURGICAL PROCEDURE, OR ANY OTHER EXPOSURE?NO DATE ASKED : 03/04/2019 LATEX RISK : HAVE YOU EVER HAD ANY DIFFICULTY BREATHING OR HIVES AFTER EATING OR HANDLING ANY FRUITS, OR VEGETABLES; SUCH KIWI, BANANAS, STONE FRUITS, OR CHESTNUTSNO LATEX RISK : DO YOU HAVE A PREVIOUS PERSONAL HISTORY OF MORE THAN NINE SURGERIES, SPINA BIFIDA, OR REPEATED CATHERIZATIONS? YES - PLEASE INDICATE : > 9 SURGERIES LATEX RISK : ARE YOU FREQUENTLY EXPOSED TO LATEX PRODUCTS IN YOUR OCCUPATION?YES CAFFEINE CAFFEINE USE?YES HOW OFTEN AND HOW MUCH? 1-3 CUPS PER DAY ADVANCE DIRECTIVE ADVANCE DIRECTIVE DISCUSSED WITH PATIENT:YES OSVALDO LONDONBRIE- CHURCH [id number] [employer]ITAL STATUS: . ALCOHOL SCREENING DID YOU HAVE A DRINK CONTAINING ALCOHOL IN THE PAST YEAR?NO POINTS0 INTERPRETATIONNEGATIVE OCCUPATION: COSMOTOLGIST. REVIEWED WITH PT 07/13/18 1341 LASREVIEWED WITH PT 08/27/18 1030 LASREVIEWED WITH PT 09/15/18 1037 BVREVIEWED WITH PATIENT 11/09/18 1140 JSREVIEWED WITH PATIENT 12/22/18 1121 JSREVIEWED WITH PT 05/20/19 1336 BVREVIEWED WITH PATIENT 03/25/19 1515 LASREVIEWED WITH PATIENT 03/04/19 1003 LASREVIEWED WITH PATIENT 04/29/19 1516 JS. HOSPITALIZATION/MAJOR DIAGNOSTIC PROCEDURE ABDOMINAL INFECTION FROM HYSTERECTOMY SURGERY - 10 DAYS IN ICU 03/2017 REVIEW OF SYSTEMS REVIEWED BY: PROVIDER: CONOR HA . CONSTITUTIONAL: ANY CHANGE IN YOUR MEDICAL CONDITION? NO . CHILLS NO . FEVER NO . INFECTION: DO YOU HAVE NEW INFECTIONS? NO . DO YOU HAVE HISTORY OF MRSA? NO . MUSCULOSKELETAL: ANY NEW PATTERNS OF PAIN OR NUMBNESS? YES, LEFT FOOT PAIN S/P SURGERIES . GASTROENTEROLOGY: ANY NEW CHANGE IN BOWEL CONTROL? NO . GENITOURINARY: ANY NEW CHANGE IN BLADDER CONTROL? NO . IS THERE A CHANCE YOU COULD BE ? NO . HEMATOLOGY/LYMPH: DO YOU TAKE ANY BLOOD THINNERS? (FOR EXAMPLE- COUMADIN, PLAVIX, AGGRENOX, PLATEL, PRADAXA, OR XARELTO) NO . WHEN WAS YOUR LAST DOSE? DATE: TIME: . NEUROLOGY: HAVE YOU FALLEN IN THE PAST 12 MONTHS? YES, FELL 3 DAYS AGO FROM PAIN TRYING TO LIFT LEG CREATING LOSS OF BALANCE PT DENIES INJURIES . ANY NEW EXTREMITY NUMBNESS OR WEAKNESS? YES, RIGHT HAND AND RIGHT HIP . CARDIOLOGY: DO YOU HAVE A PACEMAKER OR DEFIBRILLATOR? NO . RESPIRATORY: HAVE YOU BEEN SICK IN THE PAST WEEK? NO . FEVER NO . FLU LIKE SYMPTOMS? NO . COUGH NO . INTEGUMENTARY: DO YOU HAVE ANY RASHES OR OPEN SORES? YES, LEFT BIG TOE NAIL REMOVED 06/2019 . ALLERGIC/IMMUNO: ARE YOU ALLERGIC TO IV DYE? NO . ANY NEW ALLERGIES? NO . PSYCHIATRIC: DO YOU HAVE THOUGHTS OF HURTING YOURSELF OR SOMEONE ELSE? NO . ARE YOU ABUSED, NEGLECTED, OR IN AN UNSAFE ENVIRONMENT? NO . ENDOCRINOLOGY: ARE YOU DIABETIC? NO . OTHER: DO YOU NEED ANY PRESCRIPTIONS? YES, TO DISCUSS . IF YES, PLEASE LIST: ____ . ANY NEW PROBLEMS WITH YOUR MEDICATIONS? NO . WHEN DID YOU LAST EAT? ____ . WHEN DID YOU LAST DRINK? ____ . WHAT DID YOU LAST DRINK? ____ . NAME OF PERSON DRIVING YOU HOME? ____ . DO YOU HAVE ANY OTHER QUESTIONS OR CONCERNS YES, WOULD LIKE TO KNOW WHY I HURT SO BADLY . VITAL SIGNS WT 146.6 LBS, HT 62", BMI 26.81 INDEX, BP 116/58 MM HG, HR 76 /MIN, RR 18 /MIN, TEMP 97.7 F, OXYGEN SAT % 100%, NA INITIALS AW 1024, REVIEWED BY: EM. EXAMINATION GENERAL EXAMINATION: GENERALNO ACUTE DISTRESS, WELL NOURISHED AND HYDRATED. PSYCHAPPROPRIATE MOOD AND AFFECT . LUNGS:CLEAR TO AUSCULTATION BILATERALLY, NO WHEEZES, RHONCHI, RALES. HEART:NO MURMURS, REGULAR RATE AND RHYTHM. BACK:DENIES POINT TENDERNESS OVER LUMBAR SPINE , STARTING SKIN SHOWS NO ERYTHEMA, ECCHYMOSIS, INCREASED WARMTH, AND/OR SKIN ERUPTIONS NOTED. POSITIVE SLR ON THE RIGHT SIDE. . MUSCULOSKELETAL:EQUAL STRENGTH OF THE LOWER EXTREMITIES BILATERALLY . ASSESSMENTS INTERVERTEBRAL DISC DISORDER WITH RADICULOPATHY OF LUMBAR REGION - M51.16 (PRIMARY) TREATMENT INTERVERTEBRAL DISC DISORDER WITH RADICULOPATHY OF LUMBAR REGION NOTES: LESI WITH IV SEDATION L4-L5. CLINICAL NOTES: 54-YEAR-OLD FEMALE IN FOR POST LESI FOLLOW-UP. GIVEN PRESENTING SYMPTOMS AND RESULTS PHYSICAL EXAMINATION RECOMMENDED REPEAT LESI WITH POSTPROCEDURAL FOLLOW-UP. PATIENT HAS EXPRESSED UNDERSTANDING OF AND WAS IN AGREEMENT WITH TREATMENT PLAN. GIVEN TIME TO ASK QUESTIONS AND EXPRESS CONCERNS. PROCEDURE CODES FA211 ESTABILISHED PATIENT [facility] CHARGE DISPOSITION & COMMUNICATION FOLLOW UP POSTPROCEDURAL (REASON: LESI WITH IV SEDATION L4-L5) ELECTRONICALLY SIGNED BY BLANCA THRASHER ON 08/17/2019 AT 09:29 AM EDT DISCLAIMER : THIS IS A VISIT SUMMARY EXTRACTED FROM THE [employer] CHART. IT IS NOT A COPY OF THE [employer] PROGRESS NOTE. BELINDA
== END ==
LOC: M PAIN 09:45
PROVIDERS: ATTEND Family Medicine
DX: M51.16 Intervertebral disc disorders with radiculopathy, lumbar region (principal); Z88.0 Allergy status to penicillin; Z88.2 Allergy status to sulfonamides; Z88.7 Allergy status to serum and vaccine; Z79.899 Other long term (current) drug therapy

== ENCOUNTER → 2019-08-25 | Outpatient (REF) | payer OTHER ==
[2019-08-25 18:50] LABS: C REACTIVE PROTEIN QUANTITATIV < 0.30 MG/DL (0.00-0.30); RHEUMATOID FACTOR QUANT < 10.0 IU/ML (<15.0); URIC ACID 3.2 MG/DL (2.6-6.0)
[2019-08-25 18:51] LABS: BASO % 0.5 % (0.0-1.0); EOS # 0.1 10^3/uL (0.0-0.5); EOS % 1.4 % (0.0-3.0); HEMATOCRIT 37.2 % (36.0-47.0); HEMOGLOBIN 12.5 g/dl (12.0-15.5); LYMPH # 1.1 10^3/uL (1.5-5.0); LYMPH % 25.5 % (24.0-44.0); MEAN CORPUSCULAR HEMOGLOBIN 31.3 pg (27.0-33.0); MEAN CORPUSCULAR HGB CONC 33.6 g/dl (32.0-36.5); MEAN CORPUSCULAR VOLUME 93.2 fl (80.0-96.0); MONO # 0.4 10^3/uL (0.0-0.8); NEUTROPHILS # 2.8 10^3/uL (1.5-8.5); NEUTROPHILS % 64.4 % (36.0-66.0); PLATELET COUNT, AUTOMATED 229 10^3/uL (150-450); RED BLOOD COUNT 3.99 10^6/uL (4.00-5.40); WHITE BLOOD COUNT 4.4 10^3/uL (4.0-10.0)
[2019-08-25 20:10] LABS: ERYTHROCYTE SEDIMENTATION RATE 13 mm/hr (0-30)
[2019-08-27 14:22] LABS: ANTINUCLEAR ANTIBODIES DIRECT Negative (Negative)
== END ==
LOC: M LABDRAW1 16:59
PROVIDERS: ATTEND Orthopaedic Surgery
DX: M41.9 Scoliosis, unspecified (principal)

== ENCOUNTER → 2019-08-30 | Day surgery (SDC) | payer OTHER ==
[~2019-08-30] VITALS: Ht 157.5 cm; Wt 66.2 kg
[~2019-08-30] MED LIST changes: +CLINDAMYCIN 900 MG in IV 1 EA IV ONE; +LR 1,000 ML IV ONE
[2019-08-30 06:39] VITALS: BP 104/57
== END | disposition home or self-care (01) ==
LOC: M SDC 05:56
PROVIDERS: ATTEND Orthopaedic Surgery
DX: M19.072 Primary osteoarthritis, left ankle and foot (principal); Z53.29 Procedure and treatment not carried out because of patient's decision for other reasons

== ENCOUNTER → 2019-09-28 | Outpatient (CLI) | payer OTHER ==
[~2019-09-28] MED LIST changes: -CLINDAMYCIN 900 MG in IV 1 EA IV ONE; -LR 1,000 ML IV ONE
--- NOTE | 2019-10-12 05:04 | ECWPNPC ---
PATIENT NAME: MIRZA CHIN : 1965 GENDER: FEMALE VISIT DATE: 09/28/2019 DISCHARGE DATE: 09/28/19 1527 VISIT LOCKED DATE TIME: PHYSICIAN: HILTON RIOS MD RESOURCE: HILTON RIOS MD REASON FOR APPOINTMENT 1. PRE SEDATE HISTORY OF PRESENT ILLNESS HISTORY OF PRESENT ILLNESS: PAIN THE PATIENT DESCRIBES THE PAIN... 54 YEAR OLD FEMALE PATIENT WITH A HISTORY OF CHRONIC LOW BACK AND RIGHT LEG PAIN. THE PATIENT DESCRIBES THE PAIN ACHING, SORE, SHARP, STABBING, SHOOTING, ELECTRIC, AND CONTINUOUS WITH A PAIN SCORE OF 4-10/10 DEPENDING ON PHYSICAL ACTIVITY. THE PATIENT STATES HER PAIN BEGINS IN HER LOW BACK AND RADIATES DOWN MAINLY HER RIGHT LEG. THE PATIENT SAYS SHE HAS BEEN SUFFERING FROM THIS PAIN FOR MANY YEARS AND IT IS AFFECTING HER ABILITY TO PERFORM HER DAILY ACTIVITIES SUCH COOKING, GROCERY SHOPPING, AND CLEANING HER HOUSE. THE PATIENT RECEIVED A L4-L5 LUMBAR EPIDURAL STEROID INJECTION ON 05/20/2019, WHICH SHE SAYS HELPED PROVIDE PAIN RELIEF FOR A COUPLE MONTHS BEFORE THE PAIN RETURNED. THE PATIENT SAYS SHE WOULD LIKE ANOTHER LUMBAR EPIDURAL INJECTION. THE PATIENT MENTIONS SHE HAD SURGERY FOR HER LEFT FOOT. PATIENT DENIES UNEXPLAINABLE WEIGHT LOSS, FEVER, CHILLS, NEW CHANGES ON HER URINARY OR BOWEL CONTROL. FALL RISK SCREENING: SCREENING :NO FALLS REPORTED IN THE LAST YEAR CURRENT MEDICATIONS TAKING VITAMINS - (DIS) TABLET ORALLY TAKING CETIRIZINE HCL 10 MG TABLET 1 TABLET ORALLY ONCE A DAY TAKING VITAMIN D (ERGOCALCIFEROL) 2000 UNIT CAPSULE ORALLY TAKING DICLO GEL 1 % KIT TRANSDERMAL BID TAKING VITAMIN C 1000 MG TABLET 1 TABLET ORALLY ONCE A DAY TAKING OMEPRAZOLE 20 MG CAPSULE DELAYED RELEASE 1 CAPSULE ORALLY ONCE A DAY TAKING SUPER B COMPLEX TAKING DICLOFENAC SODIUM 75 MG TABLET DELAYED RELEASE 1 TABLET WITH FOOD OR MILK ORALLY TWICE A DAY TAKING MAGNESIUM 200 MG TABLET CHEWABLE DIRECTED ORALLY NOT-TAKING CEPHALEXIN 500 MG CAPSULE 1 CAPSULE ORALLY EVERY 12 HRS NOT-TAKING TYLENOL 1 TAB ORALLY 2-3X/WEEK X 4 WEEKS NOT-TAKING FLONASE 50 MCG/ACT SUSPENSION 1 SPRAY IN EACH NOSTRIL NASALLY TWICE A DAY MEDICATION LIST REVIEWED AND RECONCILED WITH THE PATIENT PAST MEDICAL HISTORY 02/2017 HYSTERECTOMY, PROLAPSE REPAIR, URETHRAL SLING 2007 CRUMP FRACTURE L FOOT NECK AND BACK PAIN ALLERGIES SULFA (FOR ALLERGY USE ONLY): HIVES - ALLERGY INFLUENZA VIRUS VACCINE SPLIT - ONSET DATE 04/29/2019 SURGICAL HISTORY BUNIONECTOMY LEFT FOOT 12/06 TONSILLECTOMY-ADNOIDS 2000 BUINIONECTOMY RIGHT FOOT 09/2011 HAMMERTOE SX RIGHT FOOT CORRECTION LEFT FOOT SURGERY 03/2013 FUSION LEFT FOOT 03/2015 HARDWARE REMOVAL 11/2016 HYSTER, PROLAPSE REPAIR, URETHRAL SLING 02/2017 EMERGENCY SURGERY FOR ABDOMINAL INFECTION - FROM HYSTERECTOMY 03/2017 BIOPSY LEFT UPPER LIP 04/24/18 LEFT BIG TOE NAIL REMOVED 06/2019 FAMILY HISTORY FATHER: 64 YRS MOTHER: 83 YRS, DIAGNOSED WITH HYPERTENSION, UNSPECIFIED HEART DISEASE 5 BROTHER(S) , 4 SISTER(S) . 2 SON(S) , 1 DAUGHTER(S) - HEALTHY. FATHER - OF LUNG DISEASE\\\\NBROTHER - HEART ISSUES\\\\NBROTHER HAD PROSTATE CANCER\\\\N. SOCIAL HISTORY GENERAL: TOBACCO USE ARE YOU A:NONSMOKER IMMUNIZATION PROGRAM SPOUSE. OTHERS AT HOME: SPOUSE. HOUSING: RENTS APARTMENT. DIET: REGULAR. LANGUAGE LANGUAGES SPOKEN:ROMANSH NEW PATIENT PAIN DIARY PATIENT DESCRIBES PAIN :ACHING, HAVE IT ALL THE TIME, SHARP, STABBING, SORE, OTHER FROM 0-10, WHAT LEVEL IS YOUR PAIN TODAY?5 PRECIPITATING FACTORS PROLONGED STANDING OR SITTING, LIFTING, NO EXERCISE MAKE IT MUCH WORSE ALLEVIATING FACTORS SWIMMING IMPACT ON FUNCTION CAN'T STAY IN ONE PLACE FOR LONG PERIODS OF TIME NAME OF PERSON DRIVING YOU HOME SELF IS THERE A CHANCE YOU COULD BE ? NO HAVE YOU BEEN SICK IN THE LAST WEEK (COLD, COUGH, FEVER, FLU, ETC) NO DO YOU TAKE ANY BLOOD THINNERS? NO DO YOU HAVE ANY RASHES OR OPEN SORES? NO ANY CHANGE IN BOWEL OR BLADDER CONTROL? NO ARE YOU ALLERGIC TO SHELLFISH OR IV DYE? NO ARE YOU DIABETIC? NO DO YOU HAVE A PACEMAKER OR DEFIBRILLATOR? NO ANY NEW PROBLEMS WITH MEDICINES OR NEW ALLERGIES NO ANY NEW PATTERNS OF PAIN OR NUMBNESS? PAIN HAS INCREASED DUE TO INABILITY TO SWIM ANY CHANGE IN YOUR MEDICAL CONDITION? NO HAVE YOU FALLEN IN THE LAST 6 MONTHS? NO DO YOU USE ANY TYPE OF TOBACCO (SMOKE, SMOKELESS, CHEW, ETC.) NO ARE YOU ABUSED, NEGLECTED, OR IN AN UNSAFE ENVIRONMENT? NO DO YOU HAVE THOUGHTS OF HURTING YOURSELF OR SOMEONE ELSE? NO DO YOU NEED ANY PRESCRIPTIONS? NO DO YOU HAVE ANY OTHER QUESTIONS OR CONCERNS? NO, PT HAS BONE BIOPSY SCHEDULED FOR FOOT, TO MAKE SURE THERE ISN'T ANY INFECTION INTENSITY SCALE REVIEWED YES RECREATIONAL DRUG USE DRUG USE?NO EXERCISE: NO REGULAR EXERCISE. LEARNING BARRIERS / SPECIAL NEEDS BARRIERS TO LEARNING?NO HEARING IMPAIRED?NO VISION IMPAIRED?YES COGNITIVELY IMPAIRED?NO :CORRECTIVE LENSES READINESS TO LEARN?YES LEARNING PREFERENCES?NO LEARNING CAPABILITIES PRESENT?YES EMOTIONAL BARRIERS?NO SPECIAL DEVICES?NO UNDERWRITING SPECIALIST NEEDED?NO PAIN CLINIC PFS, CLERGY, PUBLIC HEALTH REFERRALS PUBLIC HEALTH REFERRAL NEEDED?NO WAS THE PROVIDER NOTIFIED OF ANY PERTINENT INFO?YES HAS THE PATIENT BEEN EDUCATED REGARDING HIS/HER PLAN OF CARE?YES HAS THE PATIENT BEEN EDUCATED REGARDING PAIN, THE RISK FOR PAIN, THE IMPORTANCE OF EFFECTIVE PAIN MANAGEMENT, AND THE PAIN ASSESSMENT PROCESS?YES LATEX QUESTIONNAIRE LATEX ALLERGY : HAVE YOU EVER DEVELOPED ANY TYPE OF REACTION AFTER HANDLING LATEX PRODUCTS SUCH RUBBER GLOVES, CONDOMS, DIAPHRAGMS, BALLOONS, SOCKS, OR UNDERWEAR?NO LATEX ALLERGY : HAVE YOU EVER DEVELOPED ANY TYPE OF REACTION DURING OR AFTER DENTAL APPOINTMENT, VAGINAL/RECTAL EXAMINATION, SURGICAL PROCEDURE, OR ANY OTHER EXPOSURE?NO LATEX RISK : HAVE YOU EVER HAD ANY DIFFICULTY BREATHING OR HIVES AFTER EATING OR HANDLING ANY FRUITS, OR VEGETABLES; SUCH KIWI, BANANAS, STONE FRUITS, OR CHESTNUTSNO LATEX RISK : DO YOU HAVE A PREVIOUS PERSONAL HISTORY OF MORE THAN NINE SURGERIES, SPINA BIFIDA, OR REPEATED CATHERIZATIONS? YES - PLEASE INDICATE : > 9 SURGERIES LATEX RISK : ARE YOU FREQUENTLY EXPOSED TO LATEX PRODUCTS IN YOUR OCCUPATION?YES DATE ASKED : 03/04/2019 CAFFEINE CAFFEINE USE?YES HOW OFTEN AND HOW MUCH? 1-3 CUPS PER DAY ADVANCE DIRECTIVE ADVANCE DIRECTIVE DISCUSSED WITH PATIENT:YES OSVALDO CHIN- YAZIDI [id number] JEW MARITAL STATUS: . ALCOHOL SCREENING DID YOU HAVE A DRINK CONTAINING ALCOHOL IN THE PAST YEAR?NO POINTS0 INTERPRETATIONNEGATIVE OCCUPATION: COSMOTOLGIST. REVIEWED WITH PT 07/13/18 1341 LASREVIEWED WITH PT 08/27/18 1030 LASREVIEWED WITH PT 09/15/18 1037 BVREVIEWED WITH PATIENT 11/09/18 1140 JSREVIEWED WITH PATIENT 12/22/18 1121 JSREVIEWED WITH PT 05/20/19 1336 BVREVIEWED WITH PATIENT 03/25/19 1515 LASREVIEWED WITH PATIENT 03/04/19 1003 LASREVIEWED WITH PATIENT 04/29/19 1516 JS REVIEWED WITH PATIENT 09/28/19 1405 JS. HOSPITALIZATION/MAJOR DIAGNOSTIC PROCEDURE ABDOMINAL INFECTION FROM HYSTERECTOMY SURGERY - 10 DAYS IN ICU 03/2017 REVIEW OF SYSTEMS REVIEWED BY: PROVIDER: HILTON RIOS MD . CONSTITUTIONAL: ANY CHANGE IN YOUR MEDICAL CONDITION? NO . CHILLS NO . FEVER NO . INFECTION: DO YOU HAVE NEW INFECTIONS? NO . DO YOU HAVE HISTORY OF MRSA? NO . MUSCULOSKELETAL: ANY NEW PATTERNS OF PAIN OR NUMBNESS? YES, STATES PAIN IN BOTH SIDES AND SHOOTING PAIN IN RIGHT BUTT CHEEK AND RIGHT HIP. DR. MORTENSEN ORDERED AN MRI. . GASTROENTEROLOGY: ANY NEW CHANGE IN BOWEL CONTROL? NO . GENITOURINARY: ANY NEW CHANGE IN BLADDER CONTROL? NO . IS THERE A CHANCE YOU COULD BE ? NO . HEMATOLOGY/LYMPH: DO YOU TAKE ANY BLOOD THINNERS? (FOR EXAMPLE- COUMADIN, PLAVIX, AGGRENOX, PLATEL, PRADAXA, OR XARELTO) NO . WHEN WAS YOUR LAST DOSE? DATE: TIME: . NEUROLOGY: HAVE YOU FALLEN IN THE PAST 12 MONTHS? NO . ANY NEW EXTREMITY NUMBNESS OR WEAKNESS? NO . CARDIOLOGY: DO YOU HAVE A PACEMAKER OR DEFIBRILLATOR? NO . RESPIRATORY: HAVE YOU BEEN SICK IN THE PAST WEEK? NO . FEVER NO . FLU LIKE SYMPTOMS? NO . COUGH NO . INTEGUMENTARY: DO YOU HAVE ANY RASHES OR OPEN SORES? YES, LEFT INDEX FINGER CUT ON BHARAT, 3 STITCHES TO THAT FINGER - TO BE REMOVED FRIDAY . ALLERGIC/IMMUNO: ARE YOU ALLERGIC TO IV DYE? NO . ANY NEW ALLERGIES? NO . PSYCHIATRIC: DO YOU HAVE THOUGHTS OF HURTING YOURSELF OR SOMEONE ELSE? NO . ARE YOU ABUSED, NEGLECTED, OR IN AN UNSAFE ENVIRONMENT? NO . ENDOCRINOLOGY: ARE YOU DIABETIC? NO . OTHER: DO YOU NEED ANY PRESCRIPTIONS? NO . IF YES, PLEASE LIST: ____ . ANY NEW PROBLEMS WITH YOUR MEDICATIONS? NO . WHEN DID YOU LAST EAT? ____ . WHEN DID YOU LAST DRINK? ____ . WHAT DID YOU LAST DRINK? ____ . NAME OF PERSON DRIVING YOU HOME? ____ . DO YOU HAVE ANY OTHER QUESTIONS OR CONCERNS TETANUS VACCINE 09/22/19 . VITAL SIGNS WT 147.4 LBS, HT 62 IN, BMI 26.96 INDEX, BP 105/60 MM HG, HR 80 /MIN, RR 16 /MIN, TEMP 98.2 F, OXYGEN SAT % 100%, SAFE IN ENV? (Y/N) YES, NA INITIALS AW 1355, REVIEWED BY: JS. EXAMINATION GENERAL EXAMINATION: PATIENT IS ALERT O X 3 AND COOPERATIVE. LUNGS CLEAR, TO AUSCULTATION. HEART: NO MURMURS OR GALLOPS; FACIAL CRANIAL NERVES ARE GROSSLY NORMAL. GOOD SYMMETRY OF FACIAL MUSCLE MOVEMENT. NORMAL VISUAL [facility]. ANTALGIC WALK. PATIENT IS LIMPING FROM RIGHT LEG. RIGHT LEG IS WEAKER AT EXTENSION AND FLEXION. STRAIGHT LEG RAISE OF THE RIGHT LEG IS POSITIVE AT 45 DEGREES FOR RADICULOPATHY. MRI OF THE LUMBAR SPINE DONE ON 01/14/2019 SHOWS BULGING DISCS AT MULTIPLE LEVELS, ESPECIALLY AT L5-S1. ASSESSMENTS INTERVERTEBRAL DISC DISORDERS WITH RADICULOPATHY, LUMBOSACRAL REGION - M51.17 (PRIMARY) TREATMENT INTERVERTEBRAL DISC DISORDERS WITH RADICULOPATHY, LUMBOSACRAL REGION CLINICAL NOTES: WE DISCUSSED SEVERAL ISSUES WITH MS. CHIN'S PAIN MANAGEMENT CASE. DUE TO THE LUMBAR RADICULOPATHY, I WOULD LIKE TO MOVE FORWARD WITH A LUMBAR EPIDURAL STEROID INJECTION AT THIS TIME. WE DISCUSSED THE BENEFITS, RISKS, AND ALTERNATIVES OF THE INJECTION AND THE PATIENT WOULD LIKE TO PROCEED. THE PATIENT WOULD LIKE TO MOVE FORWARD WITH IV SEDATION DUE TO DISCOMFORT, PAIN, AND ANXIETY ASSOCIATED WITH THE PROCEDURE. I AM LOOKING FOR LONG LASTING PAIN RELIEF FROM THIS INJECTION FOR THE PATIENT. THE PATIENT WILL FOLLOW UP IN SEVERAL WEEKS AFTER HER INJECTION. INSTRUCTIONS WERE GIVEN, QUESTIONS WERE ANSWERED, PATIENT REPORTS UNDERSTANDING AND AGREES WITH THE PLAN. I, ARTURO MIRZA, DOCUMENTED THE ABOVE INFORMATION ACTING A SCRIBE FOR DR. RIOS. I HAVE REVIEWED THE ABOVE DOCUMENT, WRITTEN BY ARTURO PUGAIBEris AND I VERIFY THAT IT IS ACCURATE. . PROCEDURE CODES FA211 ESTABILISHED PATIENT [facility] FACILITY CHARGE G8427 CURRENT MEDS W/DOSAGES DOCUMENTED G8730 PAIN ASSESS POS TOOL F/U PLAN DOC DISPOSITION & COMMUNICATION ELECTRONICALLY SIGNED BY HILTON RIOS MD, MD ON 10/11/2019 AT 05:27 PM EST DISCLAIMER : THIS IS A VISIT SUMMARY EXTRACTED FROM THE [employer] CHART. IT IS NOT A COPY OF THE [employer] PROGRESS NOTE. MTDD
== END ==
LOC: M PAIN 14:45
PROVIDERS: ATTEND Anesthesiology
DX: M51.17 Intervertebral disc disorders with radiculopathy, lumbosacral region (principal); G89.29 Other chronic pain; Z88.2 Allergy status to sulfonamides; Z88.7 Allergy status to serum and vaccine; Z79.899 Other long term (current) drug therapy

== ENCOUNTER → 2019-09-30 | Outpatient (CLI) | payer OTHER ==
[~2019-09-30] MED LIST changes: +ISOVUE-M 300 61% 15ML VIAL (Q9967) As Ordered ONE; +LIDOCAINE 1% SDV INJ 30 ML VIAL As Ordered ONE; +MIDAZOLAM INJ 2 MG/2 ML VIAL (J2250) As Ordered ONE; +fentaNYL 100 MCG/2 ML INJECTION (J3010) As Ordered ONE; +methylPREDNISolone SUSP 40 MG/ML (DEPO-medrol) VIAL (J1030) As Ordered ONE
--- NOTE | 2019-10-01 08:12 | REP ---
Partial lumbar spine series: Three views . History: Injection procedure for pain. 10 seconds of fluoroscopy time is reported. Findings: A sequence of three fluoroscopically obtained last image hold procedural spot radiographs of the lumbar spine document needle position and contrast injection associated with injection procedure. Electronically Signed by Devonte Lenz MD 10/01/2019 08:04 A
--- NOTE | 2019-10-13 02:17 | ECWPNPC ---
PATIENT NAME: MIRZA CHIN : 1965 GENDER: FEMALE VISIT DATE: 09/30/2019 DISCHARGE DATE: 09/30/19 174 VISIT LOCKED DATE TIME: PHYSICIAN: HILTON RIOS MD RESOURCE: HILTON RIOS MD REASON FOR APPOINTMENT 1. SUN LAUREANO HISTORY OF PRESENT ILLNESS HISTORY OF PRESENT ILLNESS: PAIN THE PATIENT DESCRIBES THE PAIN... FALL RISK SCREENING: SCREENING :NO FALLS REPORTED IN THE LAST YEAR CURRENT MEDICATIONS TAKING VITAMINS - (DIS) TABLET ORALLY , NOTES: 09/29/19 TAKING CETIRIZINE HCL 10 MG TABLET 1 TABLET ORALLY ONCE A DAY, NOTES: 09/29/19 TAKING VITAMIN D (ERGOCALCIFEROL) 2000 UNIT CAPSULE ORALLY , NOTES: 09/29/19 TAKING DICLO GEL 1 % KIT TRANSDERMAL BID, NOTES: NONE LATELY TAKING VITAMIN C 1000 MG TABLET 1 TABLET ORALLY ONCE A DAY, NOTES: 09/29/19 TAKING OMEPRAZOLE 20 MG CAPSULE DELAYED RELEASE 1 CAPSULE ORALLY ONCE A DAY, NOTES: NONE LATELY TAKING SUPER B COMPLEX , NOTES: 09/29/19 TAKING DICLOFENAC SODIUM 75 MG TABLET DELAYED RELEASE 1 TABLET WITH FOOD OR MILK ORALLY TWICE A DAY, NOTES: NONE LATELY TAKING MAGNESIUM 200 MG TABLET CHEWABLE DIRECTED ORALLY , NOTES: 09/29/19 TAKING VIACTIV CALCIUM PLUS D 650-12.5-40 MG-MCG TABLET CHEWABLE DIRECTED ORALLY , NOTES: 09/29/19 MEDICATION LIST REVIEWED AND RECONCILED WITH THE PATIENT PAST MEDICAL HISTORY 02/2017 HYSTERECTOMY, PROLAPSE REPAIR, URETHRAL SLING 2007 CRUMP FRACTURE L FOOT NECK AND BACK PAIN ALLERGIES SULFA (FOR ALLERGY USE ONLY): HIVES - ALLERGY INFLUENZA VIRUS VACCINE SPLIT - ONSET DATE 04/29/2019 SURGICAL HISTORY BUNIONECTOMY LEFT FOOT 12/06 TONSILLECTOMY-ADNOIDS 2000 BUINIONECTOMY RIGHT FOOT 09/2011 HAMMERTOE SX RIGHT FOOT CORRECTION LEFT FOOT SURGERY 03/2013 FUSION LEFT FOOT 03/2015 HARDWARE REMOVAL 11/2016 HYSTER, PROLAPSE REPAIR, URETHRAL SLING 02/2017 EMERGENCY SURGERY FOR ABDOMINAL INFECTION - FROM HYSTERECTOMY 03/2017 BIOPSY LEFT UPPER LIP 04/24/18 LEFT BIG TOE NAIL REMOVED 06/2019 FAMILY HISTORY FATHER: 64 YRS MOTHER: 83 YRS, DIAGNOSED WITH HYPERTENSION, UNSPECIFIED HEART DISEASE 5 BROTHER(S) , 4 SISTER(S) . 2 SON(S) , 1 DAUGHTER(S) - HEALTHY. FATHER - OF LUNG DISEASE\\\\NBROTHER - HEART ISSUES\\\\NBROTHER HAD PROSTATE CANCER\\\\N. SOCIAL HISTORY GENERAL: TOBACCO USE ARE YOU A:NONSMOKER IMMUNIZATION PROGRAM SPOUSE. OTHERS AT HOME: SPOUSE. HOUSING: RENTS APARTMENT. DIET: REGULAR. LANGUAGE LANGUAGES SPOKEN:SPANISH NEW PATIENT PAIN DIARY PATIENT DESCRIBES PAIN :ACHING, HAVE IT ALL THE TIME, SHARP, STABBING, SORE, OTHER FROM 0-10, WHAT LEVEL IS YOUR PAIN TODAY?5 PRECIPITATING FACTORS PROLONGED STANDING OR SITTING, LIFTING, NO EXERCISE MAKE IT MUCH WORSE ALLEVIATING FACTORS SWIMMING IMPACT ON FUNCTION CAN'T STAY IN ONE PLACE FOR LONG PERIODS OF TIME NAME OF PERSON DRIVING YOU HOME SELF IS THERE A CHANCE YOU COULD BE ? NO HAVE YOU BEEN SICK IN THE LAST WEEK (COLD, COUGH, FEVER, FLU, ETC) NO DO YOU TAKE ANY BLOOD THINNERS? NO DO YOU HAVE ANY RASHES OR OPEN SORES? NO ANY CHANGE IN BOWEL OR BLADDER CONTROL? NO ARE YOU ALLERGIC TO SHELLFISH OR IV DYE? NO ARE YOU DIABETIC? NO DO YOU HAVE A PACEMAKER OR DEFIBRILLATOR? NO ANY NEW PROBLEMS WITH MEDICINES OR NEW ALLERGIES NO ANY NEW PATTERNS OF PAIN OR NUMBNESS? PAIN HAS INCREASED DUE TO INABILITY TO SWIM ANY CHANGE IN YOUR MEDICAL CONDITION? NO HAVE YOU FALLEN IN THE LAST 6 MONTHS? NO DO YOU USE ANY TYPE OF TOBACCO (SMOKE, SMOKELESS, CHEW, ETC.) NO ARE YOU ABUSED, NEGLECTED, OR IN AN UNSAFE ENVIRONMENT? NO DO YOU HAVE THOUGHTS OF HURTING YOURSELF OR SOMEONE ELSE? NO DO YOU NEED ANY PRESCRIPTIONS? NO DO YOU HAVE ANY OTHER QUESTIONS OR CONCERNS? NO, PT HAS BONE BIOPSY SCHEDULED FOR FOOT, TO MAKE SURE THERE ISN'T ANY INFECTION INTENSITY SCALE REVIEWED YES RECREATIONAL DRUG USE DRUG USE?NO EXERCISE: NO REGULAR EXERCISE. LEARNING BARRIERS / SPECIAL NEEDS BARRIERS TO LEARNING?NO HEARING IMPAIRED?NO VISION IMPAIRED?YES COGNITIVELY IMPAIRED?NO :CORRECTIVE LENSES READINESS TO LEARN?YES LEARNING PREFERENCES?NO LEARNING CAPABILITIES PRESENT?YES EMOTIONAL BARRIERS?NO SPECIAL DEVICES?NO QUALITY COMPLIANCE CONSULTANT NEEDED?NO PAIN CLINIC PFS, CLERGY, PUBLIC HEALTH REFERRALS PUBLIC HEALTH REFERRAL NEEDED?NO WAS THE PROVIDER NOTIFIED OF ANY PERTINENT INFO?YES HAS THE PATIENT BEEN EDUCATED REGARDING HIS/HER PLAN OF CARE?YES HAS THE PATIENT BEEN EDUCATED REGARDING PAIN, THE RISK FOR PAIN, THE IMPORTANCE OF EFFECTIVE PAIN MANAGEMENT, AND THE PAIN ASSESSMENT PROCESS?YES LATEX QUESTIONNAIRE LATEX ALLERGY : HAVE YOU EVER DEVELOPED ANY TYPE OF REACTION AFTER HANDLING LATEX PRODUCTS SUCH RUBBER GLOVES, CONDOMS, DIAPHRAGMS, BALLOONS, SOCKS, OR UNDERWEAR?NO LATEX ALLERGY : HAVE YOU EVER DEVELOPED ANY TYPE OF REACTION DURING OR AFTER DENTAL APPOINTMENT, VAGINAL/RECTAL EXAMINATION, SURGICAL PROCEDURE, OR ANY OTHER EXPOSURE?NO DATE ASKED : 03/04/2019 LATEX RISK : HAVE YOU EVER HAD ANY DIFFICULTY BREATHING OR HIVES AFTER EATING OR HANDLING ANY FRUITS, OR VEGETABLES; SUCH KIWI, BANANAS, STONE FRUITS, OR CHESTNUTSNO LATEX RISK : DO YOU HAVE A PREVIOUS PERSONAL HISTORY OF MORE THAN NINE SURGERIES, SPINA BIFIDA, OR REPEATED CATHERIZATIONS? YES - PLEASE INDICATE : > 9 SURGERIES LATEX RISK : ARE YOU FREQUENTLY EXPOSED TO LATEX PRODUCTS IN YOUR OCCUPATION?YES CAFFEINE CAFFEINE USE?YES HOW OFTEN AND HOW MUCH? 1-3 CUPS PER DAY ADVANCE DIRECTIVE ADVANCE DIRECTIVE DISCUSSED WITH PATIENT:YES OSVALDO CHIN- MORMON [id number] PROTESTANT MARITAL STATUS: . ALCOHOL SCREENING DID YOU HAVE A DRINK CONTAINING ALCOHOL IN THE PAST YEAR?NO POINTS0 INTERPRETATIONNEGATIVE OCCUPATION: COSMOTOLGIST. REVIEWED WITH PT 07/13/18 1341 LASREVIEWED WITH PT 08/27/18 1030 LASREVIEWED WITH PT 09/15/18 1037 BVREVIEWED WITH PATIENT 11/09/18 1140 JSREVIEWED WITH PATIENT 12/22/18 1121 JSREVIEWED WITH PT 05/20/19 1336 BVREVIEWED WITH PATIENT 03/25/19 1515 LASREVIEWED WITH PATIENT 03/04/19 1003 LASREVIEWED WITH PATIENT 04/29/19 1516 JS REVIEWED WITH PATIENT 09/28/19 1405 JS. HOSPITALIZATION/MAJOR DIAGNOSTIC PROCEDURE ABDOMINAL INFECTION FROM HYSTERECTOMY SURGERY - 10 DAYS IN ICU 03/2017 REVIEW OF SYSTEMS REVIEWED BY: PROVIDER: . CONSTITUTIONAL: ANY CHANGE IN YOUR MEDICAL CONDITION? NO . CHILLS NO . FEVER NO . INFECTION: DO YOU HAVE NEW INFECTIONS? NO . DO YOU HAVE HISTORY OF MRSA? NO . MUSCULOSKELETAL: ANY NEW PATTERNS OF PAIN OR NUMBNESS? NO . GASTROENTEROLOGY: ANY NEW CHANGE IN BOWEL CONTROL? NO . GENITOURINARY: ANY NEW CHANGE IN BLADDER CONTROL? NO . IS THERE A CHANCE YOU COULD BE ? NO . HEMATOLOGY/LYMPH: DO YOU TAKE ANY BLOOD THINNERS? (FOR EXAMPLE- COUMADIN, PLAVIX, AGGRENOX, PLATEL, PRADAXA, OR XARELTO) NO . WHEN WAS YOUR LAST DOSE? DATE: TIME: . NEUROLOGY: HAVE YOU FALLEN IN THE PAST 12 MONTHS? NO . ANY NEW EXTREMITY NUMBNESS OR WEAKNESS? NO . CARDIOLOGY: DO YOU HAVE A PACEMAKER OR DEFIBRILLATOR? NO . RESPIRATORY: HAVE YOU BEEN SICK IN THE PAST WEEK? NO . FEVER NO . FLU LIKE SYMPTOMS? NO . COUGH NO . INTEGUMENTARY: DO YOU HAVE ANY RASHES OR OPEN SORES? NO . ALLERGIC/IMMUNO: ARE YOU ALLERGIC TO IV DYE? NO . ANY NEW ALLERGIES? NO . PSYCHIATRIC: DO YOU HAVE THOUGHTS OF HURTING YOURSELF OR SOMEONE ELSE? NO . ARE YOU ABUSED, NEGLECTED, OR IN AN UNSAFE ENVIRONMENT? NO . ENDOCRINOLOGY: ARE YOU DIABETIC? NO . OTHER: DO YOU NEED ANY PRESCRIPTIONS? NO . IF YES, PLEASE LIST: ____ . ANY NEW PROBLEMS WITH YOUR MEDICATIONS? NO . WHEN DID YOU LAST EAT? ____[id number] . WHEN DID YOU LAST DRINK? ____09-30-19 1209 . WHAT DID YOU LAST DRINK? ____WATER . NAME OF PERSON DRIVING YOU HOME? ____JAMES . DO YOU HAVE ANY OTHER QUESTIONS OR CONCERNS NO . VITAL SIGNS WT 150 LBS, HT 62 IN, BMI 27.43 INDEX, BP 109/64 MM HG, HR 68 /MIN, RR 18 /MIN, TEMP 97.0 F, OXYGEN SAT % 98%, SAFE IN ENV? (Y/N) YES, NA INITIALS AW 1416, REVIEWED BY: KG. ASSESSMENTS INTERVERTEBRAL DISC DISORDERS WITH RADICULOPATHY, LUMBAR REGION - M51.16 (PRIMARY) INTERVERTEBRAL DISC DISORDER WITH RADICULOPATHY OF LUMBOSACRAL REGION - M51.17 TREATMENT INTERVERTEBRAL DISC DISORDER WITH RADICULOPATHY OF LUMBOSACRAL REGION [facility] FLUORO GUIDE SPINE INJECTION (PAIN)[id number] PROCEDURES PRE PROCEDURE DIAGNOSIS LUMBAR DISC DISORDER WITH RADICULOPATHY POST PROCEDURE DIAGNOSIS LUMBAR DISC DISORDER WITH RADICULOPATHY PROCEDURE LUMBAR EPIDURAL STEROID INJECTION UNDER FLUOROSCOPIC GUIDANCE SURGEON DR. HILTON RIOS VP SALES NONE ANESTHESIA LOCAL WITH IV SEDATION PRE PROCEDURE NOTE THE PATIENT HAS A HISTORY OF CHRONIC LOW BACK PAIN. I EVALUATED THE PATIENT AND REVIEWED THE CHART. I WENT OVER THE RISKS, ALTERNATIVES, AND BENEFITS ASSOCIATED WITH THIS PROCEDURE. THE PATIENT WOULD LIKE TO MOVE FORWARD WITH IV SEDATION DUE TO DISCOMFORT, PAIN, AND ANXIETY ASSOCIATED WITH THE PROCEDURE. THE PATIENT WOULD LIKE TO PROCEED AND GIVES CONSENT TO PERFORM THE PROCEDURE. THE PATIENT DENIES UNEXPLAINABLE WEIGHT LOSS, FEVER, CHILLS, OR NEW CHANGES IN URINARY OR BOWEL CONTROL. DESCRIPTION OF PROCEDURE THE PATIENT WAS BROUGHT TO THE PROCEDURE ROOM AND PLACED IN THE PRONE POSITION. THE LUMBOSACRAL AREA WAS CLEANED WITH BETADINE SOLUTION AND DRAPED ASEPTICALLY. THE PROCEDURE WAS DONE UNDER STERILE CONDITIONS. I CHECKED LATERALITY AND THE LEVEL WHERE THE PROCEDURE WAS GOING TO BE PERFORMED WITH THE PATIENT AND THE SUPPORTING STAFF AT THE MOMENT OF THE TIME OUT IN THE PROCEDURE ROOM. UNDER FLUOROSCOPIC GUIDANCE, THE TARGET POINT WAS SELECTED AT THE INTERLAMINAR LEVEL OF L4-L5. LIDOCAINE WAS USED TO NUMB THE SKIN AND THE SUBCUTANEOUS TISSUE BELOW IT. EPIDURAL TUOHY NEEDLE, 17-GAUGE, WAS ADVANCED UNDER FLUOROSCOPIC GUIDANCE AND FOLLOWING PATIENT FEEDBACK UNTIL THE EPIDURAL SPACE WAS REACHED, 7 CM DEEP INTO THE SKIN BY THE LOSS OF RESISTANCE TECHNIQUE. ISOVUE M DYE 30%, 0.25 ML, WAS INJECTED SHOWING ADEQUATE SPREAD OF THE DYE. THEN, A SOLUTION OF 3 ML OF NORMAL SALINE WITH DEPO-MEDROL 60 MG WAS INJECTED SLOWLY FOLLOWING PATIENT FEEDBACK. THERE WAS NO EVIDENCE OF BLOOD, PARESTHESIA OR CEREBROSPINAL FLUID DURING THE PROCEDURE. THE PATIENT WAS SENT TO THE RECOVERY ROOM. THE PATIENT WAS MOVING THE EXTREMITIES AND DOING WELL. THERE WAS NO COMPLICATION DURING THE PROCEDURE. PATIENT RECEIVED VERSED 3 MG AND FENTANYL 150 MCG IV DIVIDED DOSES. FACE TO FACE TIME WAS 11 MINUTES. FLUOROSCOPY TIME WAS 10 SECONDS. POST PROCEDURE NOTE THE PATIENT WILL BE SEEN IN A FOLLOW UP IN THE NEXT FEW WEEKS. INSTRUCTIONS WERE GIVEN, QUESTIONS WERE ANSWERED, AND THE PATIENT EXPRESSED UNDERSTANDING AND AGREES WITH THE PLAN. I, ARTURO MIRZA, DOCUMENTED THE ABOVE INFORMATION ACTING A SCRIBE FOR DR. RIOS. I HAVE REVIEWED THE ABOVE DOCUMENT, WRITTEN BY ARTURO MIRZA SCRIBE AND I VERIFY THAT IT IS ACCURATE. PROCEDURE CODES 12985 LUMBAR/SACRAL W/ IMAGING [id number] RADXPS IN END [id number] PXD [id number] MOD SED SAME PHYS/QHP 5/>YRS DISPOSITION & COMMUNICATION FOLLOW UP 2 WEEKS ELECTRONICALLY SIGNED BY HILTON RIOS MD, MD ON 10/12/2019 AT 01:34 PM EST DISCLAIMER : THIS IS A VISIT SUMMARY EXTRACTED FROM THE [employer] CHART. IT IS NOT A COPY OF THE [employer] PROGRESS NOTE. BELINDA
== END ==
LOC: M PAIN 14:15
PROVIDERS: ATTEND Anesthesiology
DX: M51.16 Intervertebral disc disorders with radiculopathy, lumbar region (principal); M51.17 Intervertebral disc disorders with radiculopathy, lumbosacral region; Z79.899 Other long term (current) drug therapy; Z88.2 Allergy status to sulfonamides; Z88.7 Allergy status to serum and vaccine
CPT/HCPCS: 62323; 99152; J1030; J2250; J3010; Q9967

== ENCOUNTER 2019-10-07 09:31 | Day surgery (SDC) | payer OTHER ==
[~2019-10-07] VITALS: Ht 154.9 cm; Wt 66.4 kg
[~2019-10-07 09:31] MED LIST changes: +CLINDAMYCIN 900 MG in IV 1 EA IV ONE; -ISOVUE-M 300 61% 15ML VIAL (Q9967) As Ordered ONE; -LIDOCAINE 1% SDV INJ 30 ML VIAL As Ordered ONE; +LR 1,000 ML IV ONE; -MIDAZOLAM INJ 2 MG/2 ML VIAL (J2250) As Ordered ONE; -fentaNYL 100 MCG/2 ML INJECTION (J3010) As Ordered ONE; -methylPREDNISolone SUSP 40 MG/ML (DEPO-medrol) VIAL (J1030) As Ordered ONE
[2019-10-07] MEDS ORDERED: LIDOCAINE 1% MDV 20ML VIAL ONE (09:32)
[2019-10-07] MEDS ORDERED: ROPIvacaine 0.5% 30 ML INJECTION (J2795 PER 1MG) ONE (09:32)
[2019-10-07] MEDS ORDERED: dexameTHASONE 10 MG/1 ML VIAL PRES.FREE (J1100) ONE (09:32)
[2019-10-07] MEDS ORDERED: BUPIVACAINE HCL 0.25% 30 ML VIAL As Ordered ONE (10:18)
[2019-10-07] MEDS ORDERED: MIDAZOLAM INJ 2 MG/2 ML VIAL (J2250) As Ordered ONE ×2 (10:24→11:25)
[2019-10-07] MEDS ORDERED: fentaNYL 100 MCG/2 ML INJECTION (J3010) As Ordered ONE ×2 (10:24→11:25)
[2019-10-07] MEDS: fentaNYL 100 MCG/2 ML INJECTION (J3010) IV PRN ×2 (10:45→10:48)
[2019-10-07] MEDS: MIDAZOLAM INJ 2 MG/2 ML VIAL (J2250) IV PRN ×2 (10:45→10:48)
[2019-10-07] MEDS ORDERED: ONDANSETRON 4MG/2ML VIAL (J2405) As Ordered ONE (11:25)
[2019-10-07] MEDS ORDERED: dexameTHASONE 4 MG/ML 1ML VIAL (J1100) As Ordered ONE (11:25)
[2019-10-07] MEDS ORDERED: ROCURONIUM BROMIDE 50 MG/5 ML VIAL As Ordered ONE (11:25)
[2019-10-07] MEDS ORDERED: PROPOFOL 200 MG/20 ML VIAL As Ordered ONE (11:25)
[2019-10-07] MEDS ORDERED: LIDOCAINE 2% INJ 100 MG/5 ML SDV (FOR ANES.) As Ordered ONE (11:25)
[2019-10-07] MEDS ORDERED: ACETAMINOPHEN 1000MG 100ML IV BTL (OFIRMEV) (J0131 PER 10MG) As Ordered ONE (11:25)
[2019-10-07] MEDS ORDERED: ePHEDrine SULFATE 25 MG/5 ML(5MG/ML) SYRINGE As Ordered ONE (11:25)
[2019-10-07] MEDS ORDERED: GLYCOPYRROLATE INJ 0.2 MG/ML 2 ML VIAL As Ordered ONE (14:26)
[2019-10-07] MEDS ORDERED: MORPHINE 10 MG/ML 1ML VIAL (J2270) As Ordered ONE (14:26)
[2019-10-07] MEDS ORDERED: NEOSTIGMINE 10 MG/10 ML VIAL (J2710) As Ordered ONE (14:26)
[2019-10-07] MEDS ORDERED: LR 1,000 ML IV SCH ×2 (16:00)
[2019-10-07] MEDS ORDERED: ONDANSETRON 4MG/2ML VIAL (J2405) IV PRN (16:00)
[2019-10-07] MEDS ORDERED: fentaNYL 100 MCG/2 ML INJECTION (J3010) IV PRN (16:00)
[2019-10-07] MEDS ORDERED: oxyCODONE 5MG TAB PO PRN (16:00)
--- NOTE | 2019-10-07 16:04 | REP ---
Foot views: Five views. History: Revision fusion. Intraprocedural imaging. 45.6 seconds of fluoroscopy time was utilized. Findings: A sequence of five fluoroscopically obtained spot radiographs of the foot document first metatarsal phalangeal joint arthrodesis procedure. No laterality markers are visible. Electronically Signed by Devonte Lenz MD 10/07/2019 04:08 P
[2019-10-07] MEDS ORDERED: METOCLOPRAMIDE INJ 10MG/2ML VIAL (J2765) As Ordered ONE (18:44)
[2019-10-07 19:00] VITALS: BP 102/57
[2019-10-07] MEDS ORDERED: METOCLOPRAMIDE INJ 10MG/2ML VIAL (J2765) IV ONE (19:15)
--- NOTE | 2019-10-19 10:42 | RO ---
DATE OF PROCEDURE: 10/07/2019 PREOPERATIVE DIAGNOSES: 1. 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 2. Left second toe deformity. POSTOPERATIVE DIAGNOSES: PROCEDURE: 1. Revision left first MTP arthrodesis. 2. Left calcaneal bone graft. 3. Removal of hardware left foot. 4. Left second toe partial amputation. SURGEON: Soco Valadez MD CHEMICAL ANALYTICAL SAMPLER: Yolanda Allred PA-C ANESTHESIA: Popliteal nerve block and general endotracheal anesthesia. SPECIMENS: Second toe. ESTIMATED BLOOD LOSS: 100 mL. COMPLICATIONS: None. REPLACED: None. DRAINS: None. HARDWARE: [employer] revision arthrodesis plate with associated 2.7 mm and 3.5 mm locking and nonlocking screws. I also used DBM putty and cancellous bone chips in addition to the fibular strut graft for bone grafting. INDICATIONS: Ezra Gonzales is a 54-year-old female who has had longstanding pain and difficulty due to nonunion of her first MTP joint and deformity of her left second toe after multiple surgeries. She has failed conservative measures. Risks and benefits of surgery were discussed with the patient in detail and include, but are not limited to infection, damage to the nerves and blood vessels, continued pain and stiffness, need for additional procedures. Informed consent was obtained in the office. PROCEDURE: Patient was met in the preoperative holding area where her left lower extremity was marked as the correct operative site. She was taken to the postanesthesia care unit (PACU) where a nerve block was performed by the anesthesia team. She was then taken to the operating room and placed in the supine position on the operating room table. She underwent general anesthesia. Bony prominences were well padded. A well padded tourniquet was placed on the left upper thigh. She received antibiotics within 60 minutes prior to incision. The left lower extremity was prepped and draped in the normal sterile fashion. Following this, an official time out was held where the correct patient, correct operative side and operative procedure were verified. An incision was made over the first MTP joint using the patient's prior scar. There was significant scar tissue in this area. The extensor hallucis longus (EHL) tendon was identified and was retracted laterally. The first MTP joint was identified. There was fibrous tissue but no significant bony healing across the joint. This did require significant debridement to remove all fibrous tissue and get back to bleeding cancellous bone. Following this, the great toe, which was short to begin with was significantly short. This did require that I use an interpositional bone graft to bring graft to bring it back out to length so that it could have a satisfactory position. I did use a fibular strut graft which was cut to approximately 5-6 mm to add length to the toe. This was placed in the joint after I had done thorough debridement and drilling of both sides of the first MTP joint to allow for cancellous healing. Prior to this, I had also taken calcaneal bone graft through a small incision on the lateral side of the heel. I did do careful blunt dissection to avoid the peroneal tendons and sural nerve. A 4.0 drill sleeve was used to obtain a few plugs of cancellous bone graft. The patient's calcaneal autograft was mixed with cancellous bone chips and DBM putty. This was placed throughout the first MTP joint to allow for adequate bone grafting. Following this, the toe was pinned in place. When I was happy with the position, I did select the [facility] revision arthrodesis plate. This was secured to the foot using both locking and nonlocking screws. 2.7 mm screws were used distally and 3.5 mm screws were used proximally. I did gain compression through the plate. I did use the mini C-arm to take radiographs and position of the toe and hardware placement, in addition to the bone graft, were found to be satisfactory. Following this soft tissues were closed over the bone graft. Irrigation was performed. The wound was closed using #3-0 Vicryl and #3-0 Monocryl. Next, my attention was turned to the second toe. The tourniquet had been let down by this point. The patient had a significant plantar flexion deformity after a PIP fusion of this toe on her prior surgeries at an outside facility. The toe was significantly increased in length as well and was quite painful to the patient. I did amputate through the DIP joint and did cut some of the remaining plantar flexed middle phalanx down as well. This was then closed using a combination of Vicryl and Monocryl. There was good perfusion to both toes at the end of the case. The patient was placed into a well padded dressing and a well padded splint was applied as well. She was then extubated and transferred to the recovery room in stable condition. PLAN: She will be non-weightbearing for 6-8 weeks. I will see her back in 2 weeks for a wound check and suture removal. All of the patient's questions were answered and she was in agreement with this plan.
== END 2019-10-07 19:40 | disposition home or self-care (01) ==
LOC: M SDC 09:31
PROVIDERS: ATTEND Orthopaedic Surgery
DX: M96.0 Pseudarthrosis after fusion or arthrodesis (principal); M20.5X2 Other deformities of toe(s) (acquired), left foot; J45.909 Unspecified asthma, uncomplicated; K21.9 Gastro-esophageal reflux disease without esophagitis; K59.00 Constipation, unspecified; M41.9 Scoliosis, unspecified; F41.9 Anxiety disorder, unspecified; N39.3 Stress incontinence (female) (male); Z88.2 Allergy status to sulfonamides; Z88.6 Allergy status to analgesic agent; Z79.899 Other long term (current) drug therapy; Z90.710 Acquired absence of both cervix and uterus
CPT/HCPCS: 20900; 28750; 28825; 76000; 88300; C1713; C1762; J0131; J1100; J2250; J2270; J2405; J2710; J2765; J2795; J3010

== ENCOUNTER → 2019-10-14 | Outpatient (CLI) | payer OTHER ==
[~2019-10-14] MED LIST changes: -CLINDAMYCIN 900 MG in IV 1 EA IV ONE; -LR 1,000 ML IV ONE
--- NOTE | 2019-10-16 05:43 | ECWPNPC ---
PATIENT NAME: MIRZA CHIN : 1965 GENDER: FEMALE VISIT DATE: 10/14/2019 DISCHARGE DATE: 10/14/19 1048 VISIT LOCKED DATE TIME: PHYSICIAN: RICKI COSTELLO RESOURCE: RICKI COSTELLO REASON FOR APPOINTMENT 1. POST LESI HISTORY OF PRESENT ILLNESS HISTORY OF PRESENT ILLNESS: PAIN THE PATIENT DESCRIBES THE PAIN... 54-YEAR-OLD FEMALE IN FOR POST LESI FOLLOW-UP. SHE FEELS THE PROCEDURE WORKED WELL OVERALL RATING HER PAIN PREPROCEDURE AT A 7-10 OUT OF 10 AND POSTPROCEDURE AT A 0-2 OUT OF 10. SHE FURTHER STATES THE PAIN RELIEF CONTINUES TODAY. WHEN SHE DOES EXPERIENCE PAIN SHE DESCRIBES IT SORE. FALL RISK SCREENING: SCREENING :NO FALLS REPORTED IN THE LAST YEAR CURRENT MEDICATIONS TAKING VITAMINS - (DIS) TABLET ORALLY TAKING CETIRIZINE HCL 10 MG TABLET 1 TABLET ORALLY ONCE A DAY TAKING VITAMIN D (ERGOCALCIFEROL) 2000 UNIT CAPSULE ORALLY TAKING DICLO GEL 1 % KIT TRANSDERMAL BID TAKING VITAMIN C 1000 MG TABLET 1 TABLET ORALLY ONCE A DAY TAKING SUPER B COMPLEX TAKING MAGNESIUM 200 MG TABLET CHEWABLE DIRECTED ORALLY TAKING VIACTIV CALCIUM PLUS D 650-12.5-40 MG-MCG TABLET CHEWABLE DIRECTED ORALLY TAKING OXYCODONE HCL 5 MG CAPSULE 1 CAPSULE ORALLY EVERY 4-6 HOURS NEEDED TAKING ACETAMINOPHEN EXTRA STRENGTH 500 MG TABLET 2 TABLET NEEDED ORALLY EVERY 8 HRS, MDD 6 TAKING ASPIRIN 81 81 MG TABLET DELAYED RELEASE 1 TABLET ORALLY ONCE A DAY NOT-TAKING OMEPRAZOLE 20 MG CAPSULE DELAYED RELEASE 1 CAPSULE ORALLY ONCE A DAY NOT-TAKING DICLOFENAC SODIUM 75 MG TABLET DELAYED RELEASE 1 TABLET WITH FOOD OR MILK ORALLY TWICE A DAY MEDICATION LIST REVIEWED AND RECONCILED WITH THE PATIENT PAST MEDICAL HISTORY 02/2017 HYSTERECTOMY, PROLAPSE REPAIR, URETHRAL SLING 2007 CRUMP FRACTURE L FOOT NECK AND BACK PAIN ALLERGIES SULFA (FOR ALLERGY USE ONLY): HIVES - ALLERGY INFLUENZA VIRUS VACCINE SPLIT - ONSET DATE 04/29/2019 SURGICAL HISTORY BUNIONECTOMY LEFT FOOT 12/06 TONSILLECTOMY-ADNOIDS 2000 BUINIONECTOMY RIGHT FOOT 09/2011 HAMMERTOE SX RIGHT FOOT -2011 CORRECTION LEFT FOOT SURGERY 03/2013 FUSION LEFT FOOT 03/2015 HARDWARE REMOVAL 11/2016 HYSTER, PROLAPSE REPAIR, URETHRAL SLING 02/2017 EMERGENCY SURGERY FOR ABDOMINAL INFECTION - FROM HYSTERECTOMY 03/2017 BIOPSY LEFT UPPER LIP 04/24/18 LEFT BIG TOE NAIL REMOVED 06/2019 BIG TOE JOINT FUSION, PARTIAL AMPUTATION OF 2ND TOE 10/07/19 FAMILY HISTORY FATHER: 64 YRS MOTHER: 83 YRS, DIAGNOSED WITH HYPERTENSION, UNSPECIFIED HEART DISEASE 5 BROTHER(S) , 4 SISTER(S) . 2 SON(S) , 1 DAUGHTER(S) - HEALTHY. FATHER - OF LUNG DISEASE\\\\NBROTHER - HEART ISSUES\\\\NBROTHER HAD PROSTATE CANCER\\\\N. SOCIAL HISTORY GENERAL: TOBACCO USE ARE YOU A:NONSMOKER IMMUNIZATION PROGRAM SPOUSE. OTHERS AT HOME: SPOUSE. HOUSING: RENTS APARTMENT. DIET: REGULAR. LANGUAGE LANGUAGES SPOKEN:ETHIOPIAN NEW PATIENT PAIN DIARY PATIENT DESCRIBES PAIN :ACHING, HAVE IT ALL THE TIME, SHARP, STABBING, SORE, OTHER FROM 0-10, WHAT LEVEL IS YOUR PAIN TODAY?5 PRECIPITATING FACTORS PROLONGED STANDING OR SITTING, LIFTING, NO EXERCISE MAKE IT MUCH WORSE ALLEVIATING FACTORS SWIMMING IMPACT ON FUNCTION CAN'T STAY IN ONE PLACE FOR LONG PERIODS OF TIME NAME OF PERSON DRIVING YOU HOME SELF IS THERE A CHANCE YOU COULD BE ? NO HAVE YOU BEEN SICK IN THE LAST WEEK (COLD, COUGH, FEVER, FLU, ETC) NO DO YOU TAKE ANY BLOOD THINNERS? NO DO YOU HAVE ANY RASHES OR OPEN SORES? NO ANY CHANGE IN BOWEL OR BLADDER CONTROL? NO ARE YOU ALLERGIC TO SHELLFISH OR IV DYE? NO ARE YOU DIABETIC? NO DO YOU HAVE A PACEMAKER OR DEFIBRILLATOR? NO ANY NEW PROBLEMS WITH MEDICINES OR NEW ALLERGIES NO ANY NEW PATTERNS OF PAIN OR NUMBNESS? PAIN HAS INCREASED DUE TO INABILITY TO SWIM ANY CHANGE IN YOUR MEDICAL CONDITION? NO HAVE YOU FALLEN IN THE LAST 6 MONTHS? NO DO YOU USE ANY TYPE OF TOBACCO (SMOKE, SMOKELESS, CHEW, ETC.) NO ARE YOU ABUSED, NEGLECTED, OR IN AN UNSAFE ENVIRONMENT? NO DO YOU HAVE THOUGHTS OF HURTING YOURSELF OR SOMEONE ELSE? NO DO YOU NEED ANY PRESCRIPTIONS? NO DO YOU HAVE ANY OTHER QUESTIONS OR CONCERNS? NO, PT HAS BONE BIOPSY SCHEDULED FOR FOOT, TO MAKE SURE THERE ISN'T ANY INFECTION INTENSITY SCALE REVIEWED YES RECREATIONAL DRUG USE DRUG USE?NO EXERCISE: NO REGULAR EXERCISE. LEARNING BARRIERS / SPECIAL NEEDS BARRIERS TO LEARNING?NO HEARING IMPAIRED?NO VISION IMPAIRED?YES COGNITIVELY IMPAIRED?NO :CORRECTIVE LENSES READINESS TO LEARN?YES LEARNING PREFERENCES?NO LEARNING CAPABILITIES PRESENT?YES EMOTIONAL BARRIERS?NO SPECIAL DEVICES?NO DEAN OF FACULTY NEEDED?NO PAIN CLINIC PFS, CLERGY, PUBLIC HEALTH REFERRALS PUBLIC HEALTH REFERRAL NEEDED?NO WAS THE PROVIDER NOTIFIED OF ANY PERTINENT INFO?YES HAS THE PATIENT BEEN EDUCATED REGARDING HIS/HER PLAN OF CARE?YES HAS THE PATIENT BEEN EDUCATED REGARDING PAIN, THE RISK FOR PAIN, THE IMPORTANCE OF EFFECTIVE PAIN MANAGEMENT, AND THE PAIN ASSESSMENT PROCESS?YES LATEX QUESTIONNAIRE LATEX ALLERGY : HAVE YOU EVER DEVELOPED ANY TYPE OF REACTION AFTER HANDLING LATEX PRODUCTS SUCH RUBBER GLOVES, CONDOMS, DIAPHRAGMS, BALLOONS, SOCKS, OR UNDERWEAR?NO LATEX ALLERGY : HAVE YOU EVER DEVELOPED ANY TYPE OF REACTION DURING OR AFTER DENTAL APPOINTMENT, VAGINAL/RECTAL EXAMINATION, SURGICAL PROCEDURE, OR ANY OTHER EXPOSURE?NO LATEX RISK : HAVE YOU EVER HAD ANY DIFFICULTY BREATHING OR HIVES AFTER EATING OR HANDLING ANY FRUITS, OR VEGETABLES; SUCH KIWI, BANANAS, STONE FRUITS, OR CHESTNUTSNO LATEX RISK : DO YOU HAVE A PREVIOUS PERSONAL HISTORY OF MORE THAN NINE SURGERIES, SPINA BIFIDA, OR REPEATED CATHERIZATIONS? YES - PLEASE INDICATE : > 9 SURGERIES LATEX RISK : ARE YOU FREQUENTLY EXPOSED TO LATEX PRODUCTS IN YOUR OCCUPATION?YES DATE ASKED : 03/04/2019 CAFFEINE CAFFEINE USE?YES HOW OFTEN AND HOW MUCH? 1-3 CUPS PER DAY ADVANCE DIRECTIVE ADVANCE DIRECTIVE DISCUSSED WITH PATIENT:YES OSVALDO CHIN- TAOISM [id number] [employer] STATUS: . ALCOHOL SCREENING DID YOU HAVE A DRINK CONTAINING ALCOHOL IN THE PAST YEAR?NO POINTS0 INTERPRETATIONNEGATIVE OCCUPATION: COSM[employer]. REVIEWED WITH PT 07/13/18 1341 LASREVIEWED WITH PT 08/27/18 1030 LASREVIEWED WITH PT 09/15/18 1037 BVREVIEWED WITH PATIENT 11/09/18 1140 JSREVIEWED WITH PATIENT 12/22/18 1121 JSREVIEWED WITH PT 05/20/19 1336 BVREVIEWED WITH PATIENT 03/25/19 1515 LASREVIEWED WITH PATIENT 03/04/19 1003 LASREVIEWED WITH PATIENT 04/29/19 1516 JS REVIEWED WITH PATIENT 09/28/19 1405 JSREVIEWED WITH PATIENT 10/14/19 1022 JS. HOSPITALIZATION/MAJOR DIAGNOSTIC PROCEDURE ABDOMINAL INFECTION FROM HYSTERECTOMY SURGERY - 10 DAYS IN ICU 03/2017 REVIEW OF SYSTEMS REVIEWED BY: PROVIDER: CONOR HA . CONSTITUTIONAL: ANY CHANGE IN YOUR MEDICAL CONDITION? NO . CHILLS NO . FEVER NO . INFECTION: DO YOU HAVE NEW INFECTIONS? NO . DO YOU HAVE HISTORY OF MRSA? NO . MUSCULOSKELETAL: ANY NEW PATTERNS OF PAIN OR NUMBNESS? NO . GASTROENTEROLOGY: ANY NEW CHANGE IN BOWEL CONTROL? NO . GENITOURINARY: ANY NEW CHANGE IN BLADDER CONTROL? NO . IS THERE A CHANCE YOU COULD BE ? NO . HEMATOLOGY/LYMPH: DO YOU TAKE ANY BLOOD THINNERS? (FOR EXAMPLE- COUMADIN, PLAVIX, AGGRENOX, PLATEL, PRADAXA, OR XARELTO) NO . WHEN WAS YOUR LAST DOSE? DATE: TIME: . NEUROLOGY: HAVE YOU FALLEN IN THE PAST 12 MONTHS? NO . ANY NEW EXTREMITY NUMBNESS OR WEAKNESS? NO . CARDIOLOGY: DO YOU HAVE A PACEMAKER OR DEFIBRILLATOR? NO . RESPIRATORY: HAVE YOU BEEN SICK IN THE PAST WEEK? NO . FEVER NO . FLU LIKE SYMPTOMS? NO . COUGH NO . INTEGUMENTARY: DO YOU HAVE ANY RASHES OR OPEN SORES? NO . ALLERGIC/IMMUNO: ARE YOU ALLERGIC TO IV DYE? NO . ANY NEW ALLERGIES? NO . PSYCHIATRIC: DO YOU HAVE THOUGHTS OF HURTING YOURSELF OR SOMEONE ELSE? NO . ARE YOU ABUSED, NEGLECTED, OR IN AN UNSAFE ENVIRONMENT? NO . ENDOCRINOLOGY: ARE YOU DIABETIC? NO . OTHER: DO YOU NEED ANY PRESCRIPTIONS? NO . IF YES, PLEASE LIST: ____ . ANY NEW PROBLEMS WITH YOUR MEDICATIONS? NO . WHEN DID YOU LAST EAT? ____ . WHEN DID YOU LAST DRINK? ____ . WHAT DID YOU LAST DRINK? ____ . NAME OF PERSON DRIVING YOU HOME? ____ . DO YOU HAVE ANY OTHER QUESTIONS OR CONCERNS TETNUS VACCINE 09/22/19 . VITAL SIGNS WT 150 LBS, HT 62 IN, BMI 27.43 INDEX, BP 113/61 MM HG, HR 74 /MIN, RR 18 /MIN, TEMP 96.8 F, OXYGEN SAT % 97%, SAFE IN ENV? (Y/N) YES, NA INITIALS TX 10:08, REVIEWED BY: JACQUELINE. EXAMINATION GENERAL EXAMINATION: GENERALNO ACUTE DISTRESS, WELL NOURISHED AND HYDRATED. PSYCHAPPROPRIATE MOOD AND AFFECT . LUNGS:CLEAR TO AUSCULTATION BILATERALLY, NO WHEEZES, RHONCHI, RALES. HEART:NO MURMURS, REGULAR RATE AND RHYTHM. BACK:POINT TENDER ALONG LUMBAR SPINE, STARTING SKIN SHOWS NO ERYTHEMA, ECCHYMOSIS, INCREASED WARMTH, AND/OR SKIN ERUPTIONS NOTED. . MUSCULOSKELETAL:EQUAL STRENGTH OF THE LOWER EXTREMITIES BILATERALLY . ASSESSMENTS INTERVERTEBRAL DISC DISORDER WITH RADICULOPATHY OF LUMBOSACRAL REGION - M51.17 (PRIMARY) TREATMENT INTERVERTEBRAL DISC DISORDER WITH RADICULOPATHY OF LUMBOSACRAL REGION NOTES: LESI L4-L5. CLINICAL NOTES: 54-YEAR-OLD FEMALE IN FOR POST LESI FOLLOW-UP. GIVEN PRESENTING SYMPTOMS AND RESULTS OF PHYSICAL EXAMINATION RECOMMENDED REPEAT LESI IN DECEMBER WITH POSTPROCEDURAL FOLLOW-UP. PATIENT HAS EXPRESSED UNDERSTANDING OF AND WAS IN AGREEMENT WITH TREATMENT PLAN. GIVEN TIME TO ASK QUESTIONS AND EXPRESS CONCERNS. PROCEDURE CODES FA211 ESTABILISHED PATIENT [facility] CHARGE DISPOSITION & COMMUNICATION FOLLOW UP POSTPROCEDURE (REASON: LESI L4-L5 IN DECEMBER WITH IV SEDATION) ELECTRONICALLY SIGNED BY BLANCA THRASHER ON 10/15/2019 AT 08:59 AM EST DISCLAIMER : THIS IS A VISIT SUMMARY EXTRACTED FROM THE [employer] CHART. IT IS NOT A COPY OF THE [employer] PROGRESS NOTE. BELINDA
== END ==
LOC: M PAIN 10:15
PROVIDERS: ATTEND Family Medicine
DX: M51.17 Intervertebral disc disorders with radiculopathy, lumbosacral region (principal)

== ENCOUNTER → 2020-01-04 | Outpatient (CLI) | payer OTHER ==
--- NOTE | 2020-01-08 03:35 | ECWPNPC ---
PATIENT NAME: MIRZA CHIN : 1965 GENDER: FEMALE VISIT DATE: 01/04/2020 DISCHARGE DATE: 01/04/20 165 VISIT LOCKED DATE TIME: PHYSICIAN: HILTON RIOS MD RESOURCE: HILTON RIOS MD REASON FOR APPOINTMENT 1. PRE- SEDATE HISTORY OF PRESENT ILLNESS HISTORY OF PRESENT ILLNESS: PAIN THE PATIENT DESCRIBES THE PAIN... 54 YEAR OLD FEMALE PATIENT WITH A HISTORY OF CHRONIC LOW BACK AND LEG PAIN. THE PATIENT DESCRIBES THE PAIN ACHING, SORE, TENDER, SHARP, STABBING, TIGHTNESS, AND CONTINUOUS WITH A PAIN SCORE OF 0-7/10 DEPENDING ON PHYSICAL ACTIVITY. THE PATIENT STATES HER PAIN IS MAINLY IN HER RIGHT LOW BACK AND RIGHT LEG, BUT SHE IS ALSO SUFFERING PAIN IN HER LEFT HIP. THE PATIENT SAYS HER PAIN INCREASES WITH ACTIVITIES AND IS AFFECTING HER ABILITY TO PERFORM HER DAILY ACTIVITIES SUCH CLEANING HER HOUSE, GROCERY SHOPPING, AND MOVING AROUND. THE PATIENT STATES SHE RECENTLY HAD A FOOT SURGERY AND IS IN THE PROCESS OF HEALING. THE PATIENT SAYS SHE ALSO HAS PAIN IN OTHER MULTIPLE BODY SITES SUCH BOTH SHOULDERS, BOTH HIPS, AND HER JAW. PATIENT DENIES UNEXPLAINABLE WEIGHT LOSS, FEVER, CHILLS, NEW CHANGES ON HER URINARY OR BOWEL CONTROL. FALL RISK SCREENING: SCREENING :NO FALLS REPORTED IN THE LAST YEAR CURRENT MEDICATIONS TAKING CETIRIZINE HCL 10 MG TABLET 1 TABLET ORALLY ONCE A DAY TAKING VITAMIN D (ERGOCALCIFEROL) 2000 UNIT CAPSULE ORALLY TAKING VITAMIN C 1000 MG TABLET 1 TABLET ORALLY ONCE A DAY TAKING SUPER B COMPLEX TAKING MAGNESIUM 200 MG TABLET CHEWABLE DIRECTED ORALLY TAKING VIACTIV CALCIUM PLUS D 650-12.5-40 MG-MCG TABLET CHEWABLE DIRECTED ORALLY TAKING ACETAMINOPHEN EXTRA STRENGTH 500 MG TABLET 2 TABLET NEEDED ORALLY EVERY 8 HRS, MDD 6 NOT-TAKING OMEPRAZOLE 20 MG CAPSULE DELAYED RELEASE 1 CAPSULE ORALLY ONCE A DAY NOT-TAKING DICLOFENAC SODIUM 75 MG TABLET DELAYED RELEASE 1 TABLET WITH FOOD OR MILK ORALLY TWICE A DAY DISCONTINUED VITAMINS - (DIS) TABLET ORALLY DISCONTINUED DICLO GEL 1 % KIT TRANSDERMAL BID DISCONTINUED OXYCODONE HCL 5 MG CAPSULE 1 CAPSULE ORALLY EVERY 4-6 HOURS NEEDED DISCONTINUED ASPIRIN 81 81 MG TABLET DELAYED RELEASE 1 TABLET ORALLY ONCE A DAY MEDICATION LIST REVIEWED AND RECONCILED WITH THE PATIENT PAST MEDICAL HISTORY 02/2017 HYSTERECTOMY, PROLAPSE REPAIR, URETHRAL SLING 2007 CRUMP FRACTURE L FOOT NECK AND BACK PAIN ALLERGIES SULFA (FOR ALLERGY USE ONLY): HIVES - ALLERGY INFLUENZA VIRUS VACCINE SPLIT - ONSET DATE 04/29/2019 SURGICAL HISTORY BUNIONECTOMY LEFT FOOT 12/06 TONSILLECTOMY-ADNOIDS 2000 BUINIONECTOMY RIGHT FOOT 09/2011 HAMMERTOE SX RIGHT FOOT CORRECTION LEFT FOOT SURGERY 03/2013 FUSION LEFT FOOT 03/2015 HARDWARE REMOVAL 11/2016 HYSTER, PROLAPSE REPAIR, URETHRAL SLING 02/2017 EMERGENCY SURGERY FOR ABDOMINAL INFECTION - FROM HYSTERECTOMY 03/2017 BIOPSY LEFT UPPER LIP 04/24/18 LEFT BIG TOE NAIL REMOVED 06/2019 BIG TOE JOINT FUSION, PARTIAL AMPUTATION OF 2ND TOE 10/07/19 FAMILY HISTORY FATHER: 64 YRS MOTHER: 83 YRS, DIAGNOSED WITH HYPERTENSION, UNSPECIFIED HEART DISEASE 5 BROTHER(S) , 4 SISTER(S) . 2 SON(S) , 1 DAUGHTER(S) - HEALTHY. FATHER - OF LUNG DISEASE\\\\NBROTHER - HEART ISSUES\\\\NBROTHER HAD PROSTATE CANCER\\\\N. SOCIAL HISTORY GENERAL: TOBACCO USE ARE YOU A:NONSMOKER IMMUNIZATION PROGRAM SPOUSE. OTHERS AT HOME: SPOUSE. HOUSING: RENTS APARTMENT. DIET: REGULAR. LANGUAGE LANGUAGES SPOKEN:MACEDONIAN NEW PATIENT PAIN DIARY PATIENT DESCRIBES PAIN :ACHING, HAVE IT ALL THE TIME, SHARP, STABBING, SORE, OTHER FROM 0-10, WHAT LEVEL IS YOUR PAIN TODAY?5 PRECIPITATING FACTORS PROLONGED STANDING OR SITTING, LIFTING, NO EXERCISE MAKE IT MUCH WORSE ALLEVIATING FACTORS SWIMMING IMPACT ON FUNCTION CAN'T STAY IN ONE PLACE FOR LONG PERIODS OF TIME NAME OF PERSON DRIVING YOU HOME SELF IS THERE A CHANCE YOU COULD BE ? NO HAVE YOU BEEN SICK IN THE LAST WEEK (COLD, COUGH, FEVER, FLU, ETC) NO DO YOU TAKE ANY BLOOD THINNERS? NO DO YOU HAVE ANY RASHES OR OPEN SORES? NO ANY CHANGE IN BOWEL OR BLADDER CONTROL? NO ARE YOU ALLERGIC TO SHELLFISH OR IV DYE? NO ARE YOU DIABETIC? NO DO YOU HAVE A PACEMAKER OR DEFIBRILLATOR? NO ANY NEW PROBLEMS WITH MEDICINES OR NEW ALLERGIES NO ANY NEW PATTERNS OF PAIN OR NUMBNESS? PAIN HAS INCREASED DUE TO INABILITY TO SWIM ANY CHANGE IN YOUR MEDICAL CONDITION? NO HAVE YOU FALLEN IN THE LAST 6 MONTHS? NO DO YOU USE ANY TYPE OF TOBACCO (SMOKE, SMOKELESS, CHEW, ETC.) NO ARE YOU ABUSED, NEGLECTED, OR IN AN UNSAFE ENVIRONMENT? NO DO YOU HAVE THOUGHTS OF HURTING YOURSELF OR SOMEONE ELSE? NO DO YOU NEED ANY PRESCRIPTIONS? NO DO YOU HAVE ANY OTHER QUESTIONS OR CONCERNS? NO, PT HAS BONE BIOPSY SCHEDULED FOR FOOT, TO MAKE SURE THERE ISN'T ANY INFECTION INTENSITY SCALE REVIEWED YES RECREATIONAL DRUG USE DRUG USE?NO EXERCISE: NO REGULAR EXERCISE. LEARNING BARRIERS / SPECIAL NEEDS BARRIERS TO LEARNING?NO HEARING IMPAIRED?NO VISION IMPAIRED?YES COGNITIVELY IMPAIRED?NO :CORRECTIVE LENSES READINESS TO LEARN?YES LEARNING PREFERENCES?NO LEARNING CAPABILITIES PRESENT?YES EMOTIONAL BARRIERS?NO SPECIAL DEVICES?NO WHOLESALE PARTS SALESPERSON NEEDED?NO PAIN CLINIC PFS, CLERGY, PUBLIC HEALTH REFERRALS PUBLIC HEALTH REFERRAL NEEDED?NO WAS THE PROVIDER NOTIFIED OF ANY PERTINENT INFO?YES HAS THE PATIENT BEEN EDUCATED REGARDING HIS/HER PLAN OF CARE?YES HAS THE PATIENT BEEN EDUCATED REGARDING PAIN, THE RISK FOR PAIN, THE IMPORTANCE OF EFFECTIVE PAIN MANAGEMENT, AND THE PAIN ASSESSMENT PROCESS?YES LATEX QUESTIONNAIRE LATEX ALLERGY : HAVE YOU EVER DEVELOPED ANY TYPE OF REACTION AFTER HANDLING LATEX PRODUCTS SUCH RUBBER GLOVES, CONDOMS, DIAPHRAGMS, BALLOONS, SOCKS, OR UNDERWEAR?NO LATEX ALLERGY : HAVE YOU EVER DEVELOPED ANY TYPE OF REACTION DURING OR AFTER DENTAL APPOINTMENT, VAGINAL/RECTAL EXAMINATION, SURGICAL PROCEDURE, OR ANY OTHER EXPOSURE?NO DATE ASKED : 03/04/2019 LATEX RISK : HAVE YOU EVER HAD ANY DIFFICULTY BREATHING OR HIVES AFTER EATING OR HANDLING ANY FRUITS, OR VEGETABLES; SUCH KIWI, BANANAS, STONE FRUITS, OR CHESTNUTSNO LATEX RISK : DO YOU HAVE A PREVIOUS PERSONAL HISTORY OF MORE THAN NINE SURGERIES, SPINA BIFIDA, OR REPEATED CATHERIZATIONS? YES - PLEASE INDICATE : > 9 SURGERIES LATEX RISK : ARE YOU FREQUENTLY EXPOSED TO LATEX PRODUCTS IN YOUR OCCUPATION?YES CAFFEINE CAFFEINE USE?YES HOW OFTEN AND HOW MUCH? 1-3 CUPS PER DAY ADVANCE DIRECTIVE ADVANCE DIRECTIVE DISCUSSED WITH PATIENT:YES OSVALDO LONDONBRIE- BAPTISM [id number] HINDU MARITAL STATUS: . ALCOHOL SCREENING DID YOU HAVE A DRINK CONTAINING ALCOHOL IN THE PAST YEAR?NO POINTS0 INTERPRETATIONNEGATIVE OCCUPATION: COSMOTOLGIST. REVIEWED WITH PT 07/13/18 1341 LASREVIEWED WITH PT 08/27/18 1030 LASREVIEWED WITH PT 09/15/18 1037 BVREVIEWED WITH PATIENT 11/09/18 1140 JSREVIEWED WITH PATIENT 12/22/18 1121 JSREVIEWED WITH PT 05/20/19 1336 BVREVIEWED WITH PATIENT 03/25/19 1515 LASREVIEWED WITH PATIENT 03/04/19 1003 LASREVIEWED WITH PATIENT 04/29/19 1516 JS REVIEWED WITH PATIENT 09/28/19 1405 JSREVIEWED WITH PATIENT 10/14/19 1022 JS. HOSPITALIZATION/MAJOR DIAGNOSTIC PROCEDURE ABDOMINAL INFECTION FROM HYSTERECTOMY SURGERY - 10 DAYS IN ICU 03/2017 REVIEW OF SYSTEMS REVIEWED BY: PROVIDER: HILTON RIOS MD . CONSTITUTIONAL: ANY CHANGE IN YOUR MEDICAL CONDITION? YES, LEFT FOOT SURGERY . CHILLS NO . FEVER NO . INFECTION: DO YOU HAVE NEW INFECTIONS? NO . DO YOU HAVE HISTORY OF MRSA? NO . MUSCULOSKELETAL: ANY NEW PATTERNS OF PAIN OR NUMBNESS? NO . GASTROENTEROLOGY: ANY NEW CHANGE IN BOWEL CONTROL? NO . GENITOURINARY: ANY NEW CHANGE IN BLADDER CONTROL? NO . IS THERE A CHANCE YOU COULD BE ? NO . HEMATOLOGY/LYMPH: DO YOU TAKE ANY BLOOD THINNERS? (FOR EXAMPLE- COUMADIN, PLAVIX, AGGRENOX, PLATEL, PRADAXA, OR XARELTO) NO . WHEN WAS YOUR LAST DOSE? DATE: TIME: . NEUROLOGY: HAVE YOU FALLEN IN THE PAST 12 MONTHS? NO . ANY NEW EXTREMITY NUMBNESS OR WEAKNESS? YES, RIGHT SHOULDER ARM AND HAND . CARDIOLOGY: DO YOU HAVE A PACEMAKER OR DEFIBRILLATOR? NO . RESPIRATORY: HAVE YOU BEEN SICK IN THE PAST WEEK? NO . FEVER NO . FLU LIKE SYMPTOMS? NO . COUGH NO . INTEGUMENTARY: DO YOU HAVE ANY RASHES OR OPEN SORES? YES, LEFT FOOT SURGERY INCISION . ALLERGIC/IMMUNO: ARE YOU ALLERGIC TO IV DYE? NO . ANY NEW ALLERGIES? NO . PSYCHIATRIC: DO YOU HAVE THOUGHTS OF HURTING YOURSELF OR SOMEONE ELSE? NO . ARE YOU ABUSED, NEGLECTED, OR IN AN UNSAFE ENVIRONMENT? NO . ENDOCRINOLOGY: ARE YOU DIABETIC? NO . OTHER: DO YOU NEED ANY PRESCRIPTIONS? NO . IF YES, PLEASE LIST: ____ . ANY NEW PROBLEMS WITH YOUR MEDICATIONS? NO . WHEN DID YOU LAST EAT? ____ . WHEN DID YOU LAST DRINK? ____ . WHAT DID YOU LAST DRINK? ____ . NAME OF PERSON DRIVING YOU HOME? ____ . DO YOU HAVE ANY OTHER QUESTIONS OR CONCERNS NEED TO KNOW IF THIS PROCEDURE WILL AFFECT THE BONE GRAFTING AND HEALING PROCESS FOR MY FOOT . VITAL SIGNS WT 161.8 LBS, HT 62 IN, BMI 29.59 INDEX, BP 107/61 MM HG, HR 76 /MIN, RR 18 /MIN, TEMP 98.1 F, OXYGEN SAT % 98%, NA INITIALS AW 1450, REVIEWED BY: EM. EXAMINATION GENERAL EXAMINATION: PATIENT IS ALERT O X 3 AND COOPERATIVE. LUNGS CLEAR, TO AUSCULTATION. HEART: NO MURMURS OR GALLOPS; FACIAL CRANIAL NERVES ARE GROSSLY NORMAL. GOOD SYMMETRY OF FACIAL MUSCLE MOVEMENT. NORMAL VISUAL [facility]. ANTALGIC WALK. TENDERNESS IN THE LOW BACK AREA. RIGHT LEG IS WEAKER AT EXTENSION AND FLEXION. STRAIGHT LEG RAISE OF THE RIGHT LEG IS POSITIVE AT 45 DEGREES FOR RADICULOPATHY. MRI OF THE LUMBAR SPINE DONE ON 01/14/2019 SHOWS A BUGLING DISC AT L4-L5 AND L5-S1 LEVELS. 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 CHIN'S PAIN MANAGEMENT CASE. DUE TO THE LUMBAR RADICULOPATHY, I WOULD LIKE TO MOVE FORWARD WITH A LUMBAR EPIDURAL STEROID INJECTION AT THIS TIME. THE PATIENT WOULD LIKE TO MOVE FORWARD WITH IV SEDATION DUE TO DISCOMFORT, PAIN, AND ANXIETY ASSOCIATED WITH THE PROCEDURE. WE DISCUSSED THE BENEFITS, RISKS, AND ALTERNATIVES OF THE INJECTION AND THE PATIENT WOULD LIKE TO PROCEED. I WILL REQUEST FOR AUTHORIZATION FOR THIS PROCEDURE AND ONCE IT IS RECEIVED, THE PATIENT WILL BE BOOKED FOR THE LUMBAR EPIDURAL WITH IV SEDATION. I WILL REFER THE PATIENT TO A SYSTEMS DESIGN ENGINEER FOR A CONSULT REGARDING HISTORY OF MULTIPLE JOINT PAIN. THE PATIENT WILL FOLLOW UP IN SEVERAL WEEKS AFTER HER INJECTION TO SEE HOW IT IS HELPING WITH HER PAIN. INSTRUCTIONS WERE GIVEN, QUESTIONS WERE ANSWERED, PATIENT REPORTS UNDERSTANDING AND AGREES WITH THE PLAN. I, ARTURO MIRZA, DOCUMENTED THE ABOVE INFORMATION ACTING A SCRIBE FOR DR. RIOS. I HAVE REVIEWED THE ABOVE DOCUMENT, WRITTEN BY ARTURO WYNN AND I VERIFY THAT IT IS ACCURATE. . PROCEDURE CODES FA211 ESTABILISHED PATIENT [facility] FACILITY CHARGE [id number] CURRENT MEDS W/DOSAGES DOCUMENTED G8730 PAIN ASSESS POS TOOL F/U PLAN DOC DISPOSITION & COMMUNICATION ELECTRONICALLY SIGNED BY HILTON RIOS MD, MD ON 01/07/2020 AT 11:53 AM EST DISCLAIMER : THIS IS A VISIT SUMMARY EXTRACTED FROM THE [employer] CHART. IT IS NOT A COPY OF THE [employer] PROGRESS NOTE. BELINDA
== END ==
LOC: M PAIN 14:45
PROVIDERS: ATTEND Anesthesiology
DX: M51.16 Intervertebral disc disorders with radiculopathy, lumbar region (principal); M51.17 Intervertebral disc disorders with radiculopathy, lumbosacral region; G89.29 Other chronic pain; Z88.2 Allergy status to sulfonamides; Z88.7 Allergy status to serum and vaccine; Z79.899 Other long term (current) drug therapy

== ENCOUNTER → 2020-01-19 | Outpatient (REF) | payer OTHER ==
[2020-01-19 12:16] LABS: BLOOD UREA NITROGEN 13 MG/DL (7-18); CREATININE FOR GFR 0.82 MG/DL (0.55-1.30); GLOMERULAR FILTRATION RATE > 60.0 (>51)
== END ==
LOC: M LABDRAW1 10:11
PROVIDERS: ATTEND Physician Assistant Surgical
DX: Z47.89 Encounter for other orthopedic aftercare (principal); Z98.1 Arthrodesis status; Z89.422 Acquired absence of other left toe(s)

== ENCOUNTER → 2020-02-04 | Outpatient (REF) | payer OTHER ==
[2020-02-04 17:08] LABS: ALT/SGPT 24 U/L (12-78); BILIRUBIN,TOTAL 0.5 MG/DL (0.2-1.0); BLOOD UREA NITROGEN 17 MG/DL (7-18); CALCIUM LEVEL 8.8 MG/DL (8.5-10.1); CARBON DIOXIDE LEVEL 33 MEQ/L (21-32); CHLORIDE LEVEL 104 MEQ/L (98-107); CREATININE FOR GFR 0.85 MG/DL (0.55-1.30); GLOMERULAR FILTRATION RATE > 60.0 (>51); GLUCOSE, FASTING 94 MG/DL (70-100); POTASSIUM SERUM 4.3 MEQ/L (3.5-5.1); SODIUM LEVEL 138 MEQ/L (136-145); TOTAL PROTEIN 7.3 GM/DL (6.4-8.2)
== END ==
LOC: M SFHCRHEU 13:57
PROVIDERS: ATTEND Internal Medicine
DX: M25.50 Pain in unspecified joint (principal); R94.5 Abnormal results of liver function studies
CPT/HCPCS: 36415; 80053; 86200; G0463